=== PATIENT | male | born 1970 | race Two or more races ===

== ENCOUNTER 2018-03-20 08:35 | Inpatient (IN) | payer OTHER ==
[2018-03-20] VITALS (8 sets, daily range): BP systolic 108–137; BP diastolic 60–91
[~2018-03-20] VITALS: Ht 172.7 cm; Wt 79.4 kg
[2018-03-20] MEDS ORDERED: Vancomycin 1 GM in NS 275 ML IV ONE (08:45)
[2018-03-20] MEDS ORDERED: Amikacin 500 MG in NS 110 ML IV ONE (08:45)
[2018-03-20 09:29] LABS: BASOPHILS % (AUTO) 0.7 % (0.0-2.0); EOSINOPHILS % (AUTO) 1.3 % (0.0-3.0); HEMATOCRIT 31.1 % (42.0-52.0); HEMOGLOBIN 10.4 G/DL (14.2-18.0); LYMPHOCYTES % (AUTO) 26.3 % (20.0-45.0); MEAN CORPUSCULAR VOLUME 87 FL (80-99); MONOCYTES % (AUTO) 10.2 % (1.0-10.0); NEUTROPHILS % (AUTO) 61.5 % (45.0-75.0); PLATELET COUNT 667 K/UL (150-450); RED BLOOD COUNT 3.57 M/UL (4.70-6.10); RED CELL DISTRIBUTION WIDTH 13.7 % (11.6-14.8); WHITE BLOOD COUNT 9.5 K/UL (4.8-10.8)
[2018-03-20 09:32] LABS: ANION GAP 12 mmol/L (5-15); BLOOD UREA NITROGEN 10 mg/dL (7-18); CALCIUM 9.2 MG/DL (8.5-10.1); CARBON DIOXIDE 24 MMOL/L (21-32); CHLORIDE 90 MMOL/L (98-107); CREATININE 0.6 MG/DL (0.55-1.30); POTASSIUM 3.4 MMOL/L (3.5-5.1); SODIUM 126 MMOL/L (136-145)
[2018-03-20 09:44] LABS: COLOR,URINE YELLOW
[2018-03-20] MEDS ORDERED: INDERAL20 MG GT (09:44)
[2018-03-20] MEDS ORDERED: VALPROIC ACID250 MG GT (09:44)
[2018-03-20] MEDS ORDERED: BACLOFEN10 MG GT (09:44)
[2018-03-20] MEDS ORDERED: PEPCID AC20 M2 GT (09:44)
[2018-03-20] MEDS ORDERED: KEPPRA1000 MG GT (09:44)
[2018-03-20] MEDS ORDERED: PYRIDOXINE HCL50 MG GT (09:44)
[2018-03-20 09:45] LABS: APPEARANCE,URINE CLEAR; BILIRUBIN, URINE NEGATIVE (NEGATIVE); GLUCOSE, URINE (UA) NEGATIVE (NEGATIVE); KETONES,URINE NEGATIVE (NEGATIVE); PROTEIN,URINE 3+ (NEGATIVE)
[2018-03-20 09:46] LABS: ALANINE AMINOTRANSFERASE 19 U/L (12-78); ALBUMIN 2.7 G/DL (3.4-5.0); ALBUMIN/GLOBULIN RATIO 0.5 (1.0-2.7); ALKALINE PHOSPHATASE 126 U/L (46-116); ASPARTATE AMINO TRANSFERASE 21 U/L (15-37); BILIRUBIN,TOTAL 0.4 MG/DL (0.2-1.0); CKMB 1.2 NG/ML (0.0-3.6); CREATINE KINASE 56 U/L (26-308); LEUKOCYTE ESTERASE ,URINE 4+ (NEGATIVE); NITRITE,URINE NEGATIVE (NEGATIVE); UROBILINOGEN,URINE NORMAL MG/DL (0.0-1.0)
--- NOTE | 2018-03-20 09:57 | Diagnostic Imaging Report ---
Indication: Dyspnea Comparison: None A single view chest radiograph was obtained. Findings: Lungs are hypoinflated but clear. No infiltrate or pulmonary edema identified. Heart size is normal. Tracheostomy noted. A DISPATCH OFFICER shunt is noted projected over the right side of the chest and neck. There is a PICC line present with the tip projected over the SVC. The bones are osteopenic. IMPRESSION: No acute findings
--- NOTE | 2018-03-20 10:10 | Emergency Room Report ---
History of Present Illness General Chief Complaint: Fever Source: Medical Record Present Illness HPI Patient presents from nursing facility with reports of fever and tachycardia Patient himself is nonverbal Significant past medical history including intracranial trauma Tracheostomy Does not appear to be vent dependent Patient was found to be febrile History of present illness is limited as the patient himself is not able to provide history Unknown regarding vomiting or diarrhea Patient has a indwelling Hernandez catheter and is significantly contracted Allergies: Coded Allergies: No Known Allergies (Unverified , 03/20/18) Patient History Past Medical History: see triage record Pertinent Family History: none Reviewed Nursing Documentation: PMH: Agreed; PSxH: Agreed Nursing Documentation-PMH Past Medical History: No History, Except For Hx Hypertension: Yes Hx COPD: Yes - chronic respiratory failure, tracheostomy Hx Seizures: Yes Review of Systems All Other Systems: limited - Other than the ones mentioned in the history of present illness all others are reviewed however they do stay limited due to the patient's mental status Physical Exam Vital Signs Date Time Temp Pulse Resp B/P (MAP) Pulse Ox O2 Delivery O2 Flow Rate FiO2 03/20/18 08:24 100.9 128 48 135/88 95 Room Air 100.9 03/20/18 08:25 6.0 28 Sp02 EP Interpretation: reviewed, normal General Appearance: no apparent distress Head: other - Previous trauma Eyes: bilateral eye PERRL ENT: dry mucus membranes Neck: supple, other - Tracheostomy in place Respiratory: no respiratory distress, no retraction, crackles - Bilaterally Cardiovascular #1: no gallop, no murmur, tachycardia Gastrointestinal: other - Palpable mass in the lower abdominal region nontender no grimacing feeding tube in place Musculoskeletal: other - Patient significantly contracted, PICC line in the right upper extremity Neurologic: responsive - To verbal and physical stimuli Skin: other - Mild edema diffusely, poor skin turgor erythema lower back early stages of decubitus ulcer Lymphatic: no adenopathy Medical Decision Making Diagnostic Impression: Primary Impression: Sepsis Additional Impressions: Fever UTI (urinary tract infection) ER Course Multiple differentials considered Patient's fever and tachycardia is concerning for infectious pathology Pneumonia, aspiration, UTI, line sepsis CONSIDERED Patient's white blood cell count is normal lactic acid is appropriate Patient meets criteria for sepsis given the tachycardia and fever along with UTI Placed on broad-spectrum antibiotics and requires further inpatient care Labs Test 03/20/18 08:50 White Blood Count 9.5 K/UL (4.8-10.8) Red Blood Count 3.57 M/UL (4.70-6.10) Hemoglobin 10.4 G/DL (14.2-18.0) Hematocrit 31.1 % (42.0-52.0) Mean Corpuscular Volume 87 FL (80-99) Mean Corpuscular Hemoglobin 29.1 PG (27.0-31.0) Mean Corpuscular Hemoglobin Concent 33.3 G/DL (32.0-36.0) Red Cell Distribution Width 13.7 % (11.6-14.8) Platelet Count 667 K/UL (150-450) Mean Platelet Volume 6.0 FL (6.5-10.1) Neutrophils (%) (Auto) 61.5 % (45.0-75.0) Lymphocytes (%) (Auto) 26.3 % (20.0-45.0) Monocytes (%) (Auto) 10.2 % (1.0-10.0) Eosinophils (%) (Auto) 1.3 % (0.0-3.0) Basophils (%) (Auto) 0.7 % (0.0-2.0) Urine Color Yellow Urine Appearance Clear Urine pH 7.0 (4.5-8.0) Urine Specific [place] 1.005 (1.005-1.035) Urine Protein 3+ (NEGATIVE) Urine Glucose (UA) Negative (NEGATIVE) Urine Ketones Negative (NEGATIVE) Urine Blood 5+ (NEGATIVE) Urine Nitrite Negative (NEGATIVE) Urine Bilirubin Negative (NEGATIVE) Urine Urobilinogen Normal MG/DL (0.0-1.0) Urine Leukocyte Esterase 4+ (NEGATIVE) Urine RBC 15-20 /HPF (0 - 0) Urine WBC 10-15 /HPF (0 - 0) Urine Squamous Epithelial Cells Occasional /LPF Urine Calcium Oxalate Crystals Occasional /LPF (NONE) Urine Bacteria Few /HPF (NONE) Sodium Level 126 MMOL/L (136-145) Potassium Level 3.4 MMOL/L (3.5-5.1) Chloride Level 90 MMOL/L (98-107) Carbon Dioxide Level 24 MMOL/L (21-32) Anion Gap 12 mmol/L (5-15) Blood Urea Nitrogen 10 mg/dL (7-18) Creatinine 0.6 MG/DL (0.55-1.30) Estimat Glomerular Filtration Rate > 60 mL/min (>60) Glucose Level 111 MG/DL (74-106) Lactic Acid Level 1.80 mmol/L (0.4-2.0) Calcium Level 9.2 MG/DL (8.5-10.1) Total Bilirubin 0.4 MG/DL (0.2-1.0) Aspartate Amino Transf (AST/SGOT) 21 U/L (15-37) Alanine Aminotransferase (ALT/SGPT) 19 U/L (12-78) Alkaline Phosphatase 126 U/L (46-116) Total Creatine Kinase 56 U/L (26-308) Creatine Kinase MB 1.2 NG/ML (0.0-3.6) Creatine Kinase MB Relative Index 2.1 Troponin I 0.000 ng/mL (0.000-0.056) Pro-B-Type Natriuretic Peptide 247 pg/mL (0-125) Total Protein 7.8 G/DL (6.4-8.2) Albumin 2.7 G/DL (3.4-5.0) Globulin 5.1 g/dL Albumin/Globulin Ratio 0.5 (1.0-2.7) Lipase 140 U/L (73-393) Rhythm Strip Diag. Results EP Interpretation: yes Rate: 125 Rhythm: no PVC's, no ectopy, other - Sinus tach Chest X-Ray Diagnostic Results Chest X-Ray Diagnostic Results : Chest X-Ray Ordered: Yes # of Views/Limited/Complete: 1 View Indication: Chest Pain EP Interpretation: Yes Interpretation: no consolidation, no pneumothorax, other - Nonspecific atelectasis bilaterally no obvious bony abnormality Impression: No acute disease Last Vital Signs Date Time Temp Pulse Resp B/P (MAP) Pulse Ox O2 Delivery O2 Flow Rate FiO2 03/20/18 09:55 112 36 132/82 100 T-piece 6.0 03/20/18 08:36 100.9 100.9 03/20/18 08:25 28 Status: improved Disposition: ADMITTED INPATIENT Condition: Serious Referrals: NON PHYSICIAN (PCP) Samantha Foster DO Mar 20, 2018 10:10
[2018-03-20] MEDS ORDERED: Vancomycin 1gm inj IVPB ONE (10:35)
[2018-03-20] MEDS: Enoxaparin 40mg Inj SUBQ SCH (14:04)
--- NOTE | 2018-03-20 14:36 | Infectious Diseases Prog Note ---
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 , will order arterial Doppler , recommend vascular eval (6) Conjunctivitis of both eyes Assessment & Plan: will start moxifloxacin eye drops for 5 days Subjective Allergies: Coded Allergies: No Known Allergies (Unverified , 03/20/18) Objective Vital Signs Last 24 Hour Vital Signs Date Time Temp Pulse Resp B/P (MAP) Pulse Ox O2 Delivery O2 Flow Rate FiO2 03/20/18 12:40 T-piece 6.0 28 03/20/18 12:40 98 T-piece 6.0 28 03/20/18 12:00 99.3 113 31 128/82 100 T-piece 6.0 03/20/18 10:30 112 37 137/91 100 T-piece 6.0 03/20/18 09:55 112 36 132/82 100 T-piece 6.0 03/20/18 09:50 6.0 03/20/18 09:38 112 36 T-piece 6.0 03/20/18 08:36 100.9 123 34 108/71 95 Room Air 100.9 03/20/18 08:25 T-piece 6.0 28 03/20/18 08:25 98 T-piece 6.0 28 03/20/18 08:24 100.9 128 48 135/88 95 Room Air 100.9 Height (Feet): 5 Height (Inches): 8.00 Weight (Pounds): 150 Microbiology Date/Time Source Procedure Growth Status 03/20/18 09:00 Rectum Received Laboratory Tests Test 03/20/18 08:50 03/20/18 08:55 White Blood Count 9.5 K/UL (4.8-10.8) Red Blood Count 3.57 M/UL (4.70-6.10) L Hemoglobin 10.4 G/DL (14.2-18.0) L Hematocrit 31.1 % (42.0-52.0) L Mean Corpuscular Volume 87 FL (80-99) Mean Corpuscular Hemoglobin 29.1 PG (27.0-31.0) Mean Corpuscular Hemoglobin Concent 33.3 G/DL (32.0-36.0) Red Cell Distribution Width 13.7 % (11.6-14.8) Platelet Count 667 K/UL (150-450) H Mean Platelet Volume 6.0 FL (6.5-10.1) L Neutrophils (%) (Auto) 61.5 % (45.0-75.0) Lymphocytes (%) (Auto) 26.3 % (20.0-45.0) Monocytes (%) (Auto) 10.2 % (1.0-10.0) H Eosinophils (%) (Auto) 1.3 % (0.0-3.0) Basophils (%) (Auto) 0.7 % (0.0-2.0) Urine Color Yellow Urine Appearance Clear Urine pH 7.0 (4.5-8.0) Urine Specific [place] 1.005 (1.005-1.035) Urine Protein 3+ (NEGATIVE) H Urine Glucose (UA) Negative (NEGATIVE) Urine Ketones Negative (NEGATIVE) Urine Blood 5+ (NEGATIVE) H Urine Nitrite Negative (NEGATIVE) Urine Bilirubin Negative (NEGATIVE) Urine Urobilinogen Normal MG/DL (0.0-1.0) Urine Leukocyte Esterase 4+ (NEGATIVE) H Urine RBC 15-20 /HPF (0 - 0) H Urine WBC 10-15 /HPF (0 - 0) H Urine Squamous Epithelial Cells Occasional /LPF Urine Calcium Oxalate Crystals Occasional /LPF (NONE) Urine Bacteria Few /HPF (NONE) Sodium Level 126 MMOL/L (136-145) L Potassium Level 3.4 MMOL/L (3.5-5.1) L Chloride Level 90 MMOL/L (98-107) L Carbon Dioxide Level 24 MMOL/L (21-32) Anion Gap 12 mmol/L (5-15) Blood Urea Nitrogen 10 mg/dL (7-18) Creatinine 0.6 MG/DL (0.55-1.30) Estimat Glomerular Filtration Rate > 60 mL/min (>60) Glucose Level 111 MG/DL (74-106) H Lactic Acid Level 1.80 mmol/L (0.4-2.0) Calcium Level 9.2 MG/DL (8.5-10.1) Total Bilirubin 0.4 MG/DL (0.2-1.0) Aspartate Amino Transf (AST/SGOT) 21 U/L (15-37) Alanine Aminotransferase (ALT/SGPT) 19 U/L (12-78) Alkaline Phosphatase 126 U/L (46-116) H Total Creatine Kinase 56 U/L (26-308) Creatine Kinase MB 1.2 NG/ML (0.0-3.6) Creatine Kinase MB Relative Index 2.1 Troponin I 0.000 ng/mL (0.000-0.056) Pro-B-Type Natriuretic Peptide 247 pg/mL (0-125) H Total Protein 7.8 G/DL (6.4-8.2) Albumin 2.7 G/DL (3.4-5.0) L Globulin 5.1 g/dL Albumin/Globulin Ratio 0.5 (1.0-2.7) L Lipase 140 U/L (73-393) Valproic Acid (Depakene) Level < 3 MCG/ML (50-100) L Current Medications Medications (Trade) Dose Ordered Sig/Jhonny Route PRN Reason Start Time Stop Time Status Last Admin Dose Admin Baclofen (Lioresal) 5 mg BID GT 03/20/18 18:00 04/19/18 17:59 Dextrose (Dextrose 50%) 25 ml Q1H PRN IV Hypoglycemia 03/20/18 11:45 Dextrose (Dextrose 50%) 50 ml Q1H PRN IV Hypoglycemia 03/20/18 11:45 Enoxaparin Sodium (Lovenox) 40 mg DAILY SUBQ 03/20/18 12:45 04/19/18 12:44 03/20/18 14:04 Famotidine (Pepcid) 20 mg BID GT 03/20/18 18:00 04/19/18 17:59 Levetiracetam (Keppra) 1,000 mg Q12HR GT 03/20/18 21:00 04/19/18 20:59 Piperacillin Sod/ Tazobactam Sod 3.375 gm/Sodium Chloride 110 ml @ 27.5 mls/hr EVERY 8 HOURS IVPB 03/20/18 22:00 03/25/18 21:59 UNV Propranolol HCl (Inderal) 10 mg DAILY ORAL 03/21/18 09:00 04/20/18 08:59 Pyridoxine HCl (Vitamin B6) 50 mg DAILY GT 03/21/18 09:00 04/20/18 08:59 Sodium Chloride 1,000 ml @ 50 mls/hr Q20H IVLG 03/20/18 12:31 04/19/18 12:30 03/20/18 14:01 Valproic Acid (Depakene) 250 mg Q12HR ORAL 03/20/18 21:00 04/19/18 20:59 Vancomycin HCl (Vanco rx to dose) 1 ea DAILY PRN MISC Per rx protocol 03/20/18 14:15 04/19/18 14:14 Oneyda Cedeño M.D. Mar 20, 2018 14:36
[2018-03-20] MEDS ORDERED: Piperacillin/Tazobactam 3.375 GM in NS 110 ML IVPB SCH (16:00)
--- NOTE | 2018-03-20 18:15 | History and Physical Report ---
DATE OF ADMISSION: 03/20/2018 REASON FOR ADMISSION: 1. Sepsis. 2. Chronic respiratory failure. 3. Urinary tract infection. HISTORY OF PRESENT ILLNESS: The patient is a 48-year-old gentleman who presented from his assisted facility with fever and tachycardia. He is nonverbal. He is currently on high flow oxygen through his tracheostomy. He is being admitted for further evaluation and care, possible sepsis from pneumonia and/or urinary tract infection. He has a current indwelling Hernandez catheter and is severely contracted. ALLERGIES: No known drug allergies. PAST MEDICAL HISTORY: 1. Seizure disorder. 2. Chronic respiratory failure. 3. Chronically contracted. 4. Intracranial trauma. PAST SURGICAL HISTORY: Tracheostomy. FAMILY HISTORY: Noncontributory. REVIEW OF SYSTEMS: Cannot obtain as patient is nonverbal and is mechanically ventilated through his tracheostomy. LABORATORY AND DIAGNOSTIC DATA: Laboratories dated March 20, 2018, sodium 126, potassium 3.4, creatinine 0.6. Troponin 0. Lipase 140. Hemoglobin 10.4, white cell count 9.5, and platelet count 667. PHYSICAL EXAMINATION: VITAL SIGNS: Blood pressure 137/91, respiratory rate 37, pulse 112, temperature 100.9 mechanically ventilated. GENERAL: The patient is nonverbal high flow oxygen HEENT: Extraocular muscles intact. No lymphadenopathy noted. CARDIOVASCULAR: S1 and S2. Tachycardic. No rubs or gallops. PULMONARY: Upper airway rhonchi. Fair movement in all lung feldman with basilar rales. ABDOMEN: Nondistended and nontender. Good bowel sounds. EXTREMITIES: The patient is contracted with no edema. Fair pedal pulses. ASSESSMENT AND PLAN: 1. Sepsis, most likely secondary to underlying urinary tract infection. At this time, antibiotics will be managed by Dr. Stark of Infectious Disease. 2. Respiratory failure. The patient is on high flow oxygen via tracheostomy. To be managed during this hospitalization by Dr. Martinez for adequate oxygenation 3. Hypokalemia. We will replace with 40 mEq through his G-tube. 4. DVT prophylaxis with Lovenox. 5. Hyponatremia. At this time, we will discontinue free water flushes and change to normal saline. 6. Seizure disorder. We will check valproic acid level and continue Keppra and his valproate. 7. Tachycardia- on b-saad. Likley from sepsis. Cardiology to evaluate other etiologies Osvaldo Cooper MD DR: Burt JOB#: [id number] CC: ARNAV
--- NOTE | 2018-03-20 19:45 | Consultation ---
DATE OF CONSULTATION: 03/20/2018 INFECTIOUS DISEASE CONSULTATION CONSULTING PHYSICIAN: Oneyda Stark M.D. REQUESTING PHYSICIAN: Osvaldo Cooper M.D. REASON FOR CONSULTATION: Sepsis, catheter-associated urinary tract infection with fever. Recommendation for antibiotics treatment. HISTORY OF PRESENT ILLNESS: The patient is a 48-year-old male with past medical history of hypertension, chronic respiratory failure, status post tracheostomy, COPD, seizure disorder, history of craniotomy who has been contracted mainly in the lower extremity presented to [facility] emergency room with fever and tachycardia, concerning for sepsis. His urinalysis showed evidence of infection. The patient was found to be febrile in the emergency room with temperature of 100.9 degrees and pulse rate of 128, suggestive of sepsis. So, he was started on vancomycin and amikacin in the emergency room and Infectious Disease consultation was requested for antibiotics treatment and further management. As of note, the patient is nonverbal, could not provide any history himself. History was mainly obtained from the medical record and nursing staff. REVIEW OF SYSTEMS: Unable to obtain. The patient is nonverbal, cannot provide any history. PAST MEDICAL HISTORY: Significant for hypertension, COPD, chronic respiratory failure, status post tracheostomy and seizure disorder. PAST SURGICAL HISTORY: Significant for tracheostomy and craniotomy. SOCIAL HISTORY: The patient lives at convalescent home. No recent drugs, tobacco, or alcohol. ALLERGIES: He has no known drug allergy. MEDICATIONS: The patient received vancomycin and amikacin 1 dose in the emergency room. For the rest of his medications, please refer to MAR. LABORATORY AND DIAGNOSTIC DATA: Labs showed white count of 9.5, hemoglobin of 10.4 and platelet count of 667. BUN of 10 and creatinine 0.6. AST of 21 and ALT of 19. Urinalysis showed +4 leukocyte esterase and wbc's 10 to 15 with a few bacteria. Imaging, chest x-ray showed no acute finding. PHYSICAL EXAMINATION: VITAL SIGNS: Temperature 99.3 degrees, pulse 113, respirations 31, blood pressure 128/82 and saturation 100% on with oxygen flow of 6 liters. GENERAL: A middle-aged male, lying in bed, comfortable, nonverbal, does not open eyes spontaneously with no acute distress. HEENT: He has left craniectomy, old surgical scar intact. He had sticky dry secretions in both eyes concerning for conjunctivitis. Unable to assess oral mucosa. The patient does not follow command and does not open his mouth spontaneously, but he has poor dental hygiene and dry mouth secretion. NECK: Supple. No lymphadenopathy. Tracheostomy site looks intact. No drainage or pus discharge. CARDIOVASCULAR: He was tachycardic. S1 and S2 normal. No murmur or gallop. LUNGS: He had diminished breathing sounds at the bases. Normal breathing effort. No wheezing or rhonchi. ABDOMEN: Soft, nontender, nondistended. Hypoactive bowel sounds. G-tube site looks intact. No discharge or erythema. EXTREMITY: Contracted mainly the lower extremity with left foot and toes, multiple dry gangrenous change. No foul smell or drainage. Dark black eschar at the gangrenous site. Poor pulse in both lower extremities and muscle atrophy. ASSESSMENT AND RECOMMENDATION: 1. Catheter-associated urinary tract infection. We will start Zosyn empiric coverage pending urine culture. We will consider changing Hernandez catheter. Significant infection confirmed by culture. Continue Hernandez care as needed. 2. Fever due to the above. Continue wide-spectrum antibiotics and Tylenol p.r.n. 3. Sepsis with fever and tachycardia, source suspect is urine infection. We will start the patient on vancomycin and Zosyn empiric coverage pending cultures. 4. Tracheostomy care. Continue local care of the trach as needed with dressing change. 5. Dry gangrene of the left foot. We will order arterial Doppler. Recommend vascular evaluation for possible revascularization. Thank you for the consult. ID will continue to follow. Please feel free to call with any question. Oneyda Stark M.D. DR: FORREST JOB#: [id number] CC:
[2018-03-20] MEDS: Valproic Acid 250mg/5ml Liquid ORAL SCH (21:12)
[2018-03-20] MEDS: Piperacillin/Tazobactam 3.375 GM in NS 110 ML IVPB SCH (21:13)
[2018-03-20] MEDS: Vigamox Opth Soln 3ml BOTH EYES SCH (21:13)
[2018-03-20] MEDS: Vancomycin 1gm in D5W 275ml IVPB SCH (21:13)
[2018-03-21] VITALS: BP 113/60
--- NOTE | 2018-03-21 01:00 | Consultation ---
History of Present Illness General Date patient seen: Mar 20, 2018 Time patient seen: 22:54 Chief Complaint: Fever Present Illness HPI 48 year old male patient came in for sepsis and [id number]. Patient has a picc line on the right upper arm, a G tube on the left upper quadrant, and a yen catheter in place. Patient is non verbal, he has a trach in place. His legs are very contracted. Patient is sinus tach on the heart monitor 100-105, he was started on vancomycin and amikacin in the emergency room. He has a history of COPD, seizure disorder, history of craniotomy. CXR with no acute findings, labs show hypokalemia. Cardiology consulted for tachycardia Allergies: Coded Allergies: No Known Allergies (Unverified , 03/20/18) Medication History Scheduled Baclofen* (Baclofen*), 5 MG GT BID, (Reported) Famotidine (Pepcid Ac), 20 MG GT BID, (Reported) Levetiracetam (Keppra), 1,000 MG GT EVERY 12 HOURS, (Reported) Propranolol HCl (Propranolol HCl), 10 MG GT DAILY, (Reported) Pyridoxine Hcl* (Vitamin B-6*), 50 MG GT DAILY, (Reported) Valproic Acid (Valproic Acid), 250 MG GT BID, (Reported) Patient History Healthcare decision maker ANICETO ENCISO Resuscitation status Full Code Advanced Directive on File No Review of Systems Constitutional: Reports: fever, malaise Eye: Reports: no symptoms ENT: Reports: no symptoms Respiratory: Reports: no symptoms Gastrointestinal: Reports: no symptoms Genitourinary: Reports: no symptoms Musculoskeletal: Reports: no symptoms Skin: Reports: no symptoms Psychiatric: Reports: no symptoms Neurological: Reports: no symptoms Endocrine: Reports: no symptoms Hematologic/Lymphatic: Reports: no symptoms Physical Exam General Appearance: no apparent distress, alert Lines, tubes and drains: peripheral, PICC HEENT: normocephalic, atraumatic Neck: non-tender, normal alignment Respiratory/Chest: chest wall non-tender, lungs clear Cardiovascular/Chest: normal peripheral pulses, normal rate, tachycardia Abdomen: normal bowel sounds, non tender, no organomegaly Genitourinary/Rectal: normal rectal exam Extremities: normal range of motion, non-tender Skin Exam: normal pigmentation Neurologic: caul puller II-XII grossly normal Last 24 Hour Vital Signs Date Time Temp Pulse Resp B/P (MAP) Pulse Ox O2 Delivery O2 Flow Rate FiO2 03/21/18 00:25 T-piece 6.0 28 03/21/18 00:25 97 T-piece 6.0 28 03/20/18 20:00 112 03/20/18 20:00 28 03/20/18 20:00 99.9 120 20 110/70 (83) 98 99.9 03/20/18 20:00 T-piece 03/20/18 19:17 100 T-piece 6.0 28 03/20/18 19:17 T-piece 6.0 28 03/20/18 18:00 99.7 112 16 128/75 (92) 98 99.7 03/20/18 17:30 T-piece 03/20/18 17:20 6.0 03/20/18 16:59 T-piece 6.0 03/20/18 16:00 110 03/20/18 16:00 T-piece 03/20/18 16:00 99.0 106 14 122/81 (95) 98 99.0 03/20/18 14:00 106 16 114/72 (86) 98 03/20/18 12:40 T-piece 6.0 03/20/18 12:40 98 T-piece 6.0 03/20/18 12:30 99.0 106 18 111/60 (77) 98 99.0 03/20/18 12:00 99.3 113 31 128/82 100 T-piece 6.0 03/20/18 10:30 112 37 137/91 100 T-piece 6.0 03/20/18 09:55 112 36 132/82 100 T-piece 6.0 03/20/18 09:50 6.0 03/20/18 09:38 112 36 T-piece 6.0 03/20/18 08:36 100.9 123 34 108/71 95 Room Air 100.9 03/20/18 08:25 T-piece 6.0 03/20/18 08:25 98 T-piece 6.0 03/20/18 08:24 100.9 128 48 135/88 95 Room Air 100.9 Intake and Output 03/20/18 03/21/18 19:00 07:00 Intake Total 90 ml Output Total 1150 ml Balance -1060 ml Intake Free Water 50 ml Tube Feeding 40 ml Output Urine Total 1150 ml # Bowel Movements 3 Laboratory Tests Test 03/20/18 08:50 03/20/18 08:55 White Blood Count 9.5 K/UL (4.8-10.8) Red Blood Count 3.57 M/UL (4.70-6.10) L Hemoglobin 10.4 G/DL (14.2-18.0) L Hematocrit 31.1 % (42.0-52.0) L Mean Corpuscular Volume 87 FL (80-99) Mean Corpuscular Hemoglobin 29.1 PG (27.0-31.0) Mean Corpuscular Hemoglobin Concent 33.3 G/DL (32.0-36.0) Red Cell Distribution Width 13.7 % (11.6-14.8) Platelet Count 667 K/UL (150-450) H Mean Platelet Volume 6.0 FL (6.5-10.1) L Neutrophils (%) (Auto) 61.5 % (45.0-75.0) Lymphocytes (%) (Auto) 26.3 % (20.0-45.0) Monocytes (%) (Auto) 10.2 % (1.0-10.0) H Eosinophils (%) (Auto) 1.3 % (0.0-3.0) Basophils (%) (Auto) 0.7 % (0.0-2.0) Urine Color Yellow Urine Appearance Clear Urine pH 7.0 (4.5-8.0) Urine Specific [place] 1.005 (1.005-1.035) Urine Protein 3+ (NEGATIVE) H Urine Glucose (UA) Negative (NEGATIVE) Urine Ketones Negative (NEGATIVE) Urine Blood 5+ (NEGATIVE) H Urine Nitrite Negative (NEGATIVE) Urine Bilirubin Negative (NEGATIVE) Urine Urobilinogen Normal MG/DL (0.0-1.0) Urine Leukocyte Esterase 4+ (NEGATIVE) H Urine RBC 15-20 /HPF (0 - 0) H Urine WBC 10-15 /HPF (0 - 0) H Urine Squamous Epithelial Cells Occasional /LPF Urine Calcium Oxalate Crystals Occasional /LPF (NONE) Urine Bacteria Few /HPF (NONE) Sodium Level 126 MMOL/L (136-145) L Potassium Level 3.4 MMOL/L (3.5-5.1) L Chloride Level 90 MMOL/L (98-107) L Carbon Dioxide Level 24 MMOL/L (21-32) Anion Gap 12 mmol/L (5-15) Blood Urea Nitrogen 10 mg/dL (7-18) Creatinine 0.6 MG/DL (0.55-1.30) Estimat Glomerular Filtration Rate > 60 mL/min (>60) Glucose Level 111 MG/DL (74-106) H Lactic Acid Level 1.80 mmol/L (0.4-2.0) Calcium Level 9.2 MG/DL (8.5-10.1) Total Bilirubin 0.4 MG/DL (0.2-1.0) Aspartate Amino Transf (AST/SGOT) 21 U/L (15-37) Alanine Aminotransferase (ALT/SGPT) 19 U/L (12-78) Alkaline Phosphatase 126 U/L (46-116) H Total Creatine Kinase 56 U/L (26-308) Creatine Kinase MB 1.2 NG/ML (0.0-3.6) Creatine Kinase MB Relative Index 2.1 Troponin I 0.000 ng/mL (0.000-0.056) Pro-B-Type Natriuretic Peptide 247 pg/mL (0-125) H Total Protein 7.8 G/DL (6.4-8.2) Albumin 2.7 G/DL (3.4-5.0) L Globulin 5.1 g/dL Albumin/Globulin Ratio 0.5 (1.0-2.7) L Lipase 140 U/L (73-393) Valproic Acid (Depakene) Level < 3 MCG/ML (50-100) L Microbiology Date/Time Source Procedure Growth Status 03/20/18 09:00 Rectum Received Height (Feet): 5 Height (Inches): 8.00 Weight (Pounds): 175 Medications Current Medications Medications (Trade) Dose Ordered Sig/Jhonny Route PRN Reason Start Time Stop Time Status Last Admin Dose Admin Acetaminophen (Tylenol) 650 mg Q6H PRN ORAL Mild Pain/Temp > 100.5 03/20/18 22:15 04/19/18 22:14 Baclofen (Lioresal) 5 mg BID GT 03/20/18 21:00 04/19/18 20:59 03/20/18 21:12 Chlorhexidine Gluconate (Jackeline-Hex 2%) 1 applic DAILY@2000 TOPIC 03/21/18 20:00 04/20/18 19:59 Dextrose (Dextrose 50%) 25 ml Q1H PRN IV Hypoglycemia 03/20/18 11:45 Dextrose (Dextrose 50%) 50 ml Q1H PRN IV Hypoglycemia 03/20/18 11:45 Enoxaparin Sodium (Lovenox) 40 mg DAILY SUBQ 03/20/18 12:45 04/19/18 12:44 03/20/18 14:04 Famotidine (Pepcid) 20 mg BID GT 03/20/18 21:00 04/19/18 20:59 03/20/18 21:12 Levetiracetam (Keppra) 1,000 mg Q12HR GT 03/20/18 21:00 04/19/18 20:59 03/20/18 21:13 Moxifloxacin HCl (Vigamox) 1 drop Q8HR BOTH EYES 03/20/18 22:00 03/25/18 21:59 03/20/18 21:13 Piperacillin Sod/ Tazobactam Sod 3.375 gm/Sodium Chloride 110 ml @ 220 mls/hr Q8H IVPB 03/20/18 21:00 03/27/18 20:59 03/20/18 21:13 Propranolol HCl (Inderal) 10 mg DAILY ORAL 03/21/18 09:00 04/20/18 08:59 Pyridoxine HCl (Vitamin B6) 50 mg DAILY GT 03/21/18 09:00 04/20/18 08:59 Sodium Chloride 1,000 ml @ 50 mls/hr Q20H IVLG 03/20/18 12:31 04/19/18 12:30 03/20/18 14:01 Valproic Acid (Depakene) 250 mg Q12HR ORAL 03/20/18 21:00 04/19/18 20:59 03/20/18 21:12 Vancomycin HCl (Vanco rx to dose) 1 ea DAILY PRN MISC Per rx protocol 03/20/18 15:00 04/19/18 14:59 Vancomycin HCl 1 gm/Dextrose 275 ml @ 183.708 mls/hr Q12HR IVPB 03/20/18 21:00 03/25/18 20:59 03/20/18 21:13 Assessment/Plan Status: stable Assessment/Plan Assessment: 1) Sepsis- UTI 2) Tachycardia 3) COPD 4) Hypokalemia 5) Hyponatremia 6) Fever 7) Conjunctivitis 8) Trach/peg Plan: IV abx for UTI Replete electrolytes IV fluid bolus, patient clinically dry Tachycardia noted - hold beta blockers in setting of sepsis, will resolve once infection and fluid status improved Echocardiogram to evaluate IVC size and LV filling parameters Wound care Mohsen Hinojosa MD Mar 21, 2018 01:00
[2018-03-21 04:00] VITALS: BP 114/74
[2018-03-21] MEDS: Piperacillin/Tazobactam 3.375 GM in NS 110 ML IVPB SCH ×3 (05:11→21:51)
[2018-03-21] MEDS: Vigamox Opth Soln 3ml BOTH EYES SCH ×3 (05:11→21:51)
[2018-03-21 05:36] LABS: BASOPHILS % (AUTO) 0.8 % (0.0-2.0); EOSINOPHILS % (AUTO) 1.2 % (0.0-3.0); HEMATOCRIT 30.7 % (42.0-52.0); HEMOGLOBIN 9.9 G/DL (14.2-18.0); LYMPHOCYTES % (AUTO) 42.7 % (20.0-45.0); MEAN CORPUSCULAR VOLUME 88 FL (80-99); MONOCYTES % (AUTO) 14.8 % (1.0-10.0); NEUTROPHILS % (AUTO) 40.5 % (45.0-75.0); PLATELET COUNT 476 K/UL (150-450); RED BLOOD COUNT 3.47 M/UL (4.70-6.10); RED CELL DISTRIBUTION WIDTH 13.8 % (11.6-14.8); WHITE BLOOD COUNT 5.4 K/UL (4.8-10.8)
[2018-03-21 05:43] LABS: ANION GAP 9 mmol/L (5-15); BLOOD UREA NITROGEN 5 mg/dL (7-18); CALCIUM 9.2 MG/DL (8.5-10.1); CARBON DIOXIDE 28 MMOL/L (21-32); CHLORIDE 102 MMOL/L (98-107); CREATININE 0.5 MG/DL (0.55-1.30); POTASSIUM 3.1 MMOL/L (3.5-5.1); SODIUM 138 MMOL/L (136-145)
--- NOTE | 2018-03-21 07:55 | Nephrology Progress Note ---
Assessment/Plan Assessment/Plan A/P 1) Sepsis- UTI, catheter related - Abx mgmt per ID 2) Tachycardia- from fever/sepsis - BBlocker and cardiology evaluated 3) Resp Fl- trach on T-Piece 4) DVT prophylaxsis- lovenox sub q 5) Dry Gangrene left foot- Surgery has been consulted and doppler ordered 6) Hyponatremia- corrected Subjective Date patient seen: Mar 21, 2018 Time patient seen: 07:48 ROS Limited/Unobtainable: Yes Allergies: Coded Allergies: No Known Allergies (Unverified , 03/20/18) All Systems: reviewed and negative except above Subjective Patient stable in no overt distress Objective Last 24 Hour Vital Signs Date Time Temp Pulse Resp B/P (MAP) Pulse Ox O2 Delivery O2 Flow Rate FiO2 03/21/18 04:00 98.1 113 18 114/74 (87) 100 98.1 03/21/18 04:00 T-piece 03/21/18 04:00 28 03/21/18 04:00 113 03/21/18 00:25 T-piece 6.0 28 03/21/18 00:25 97 T-piece 6.0 03/21/18 00:00 T-piece 03/21/18 00:00 99.3 119 26 113/60 (77) 98 99.3 03/20/18 20:00 112 03/20/18 20:00 28 03/20/18 20:00 99.9 120 20 110/70 (83) 98 99.9 03/20/18 20:00 T-piece 03/20/18 19:17 100 T-piece 6.0 03/20/18 19:17 T-piece 6.0 28 03/20/18 18:00 99.7 112 16 128/75 (92) 98 99.7 03/20/18 17:30 T-piece 03/20/18 17:20 6.0 03/20/18 16:59 T-piece 6.0 03/20/18 16:00 110 03/20/18 16:00 T-piece 03/20/18 16:00 99.0 106 14 122/81 (95) 98 99.0 03/20/18 14:00 106 16 114/72 (86) 98 03/20/18 12:40 T-piece 6.0 28 03/20/18 12:40 98 T-piece 6.0 03/20/18 12:30 99.0 106 18 111/60 (77) 98 99.0 03/20/18 12:00 99.3 113 31 128/82 100 T-piece 6.0 03/20/18 10:30 112 37 137/91 100 T-piece 6.0 03/20/18 09:55 112 36 132/82 100 T-piece 6.0 03/20/18 09:50 6.0 03/20/18 09:38 112 36 T-piece 6.0 03/20/18 08:36 100.9 123 34 108/71 95 Room Air 100.9 03/20/18 08:25 T-piece 6.0 03/20/18 08:25 98 T-piece 6.0 03/20/18 08:24 100.9 128 48 135/88 95 Room Air 100.9 Intake and Output 03/20/18 03/21/18 19:00 07:00 Intake Total 90 ml 1655.000 ml Output Total 1150 ml 1150 ml Balance -1060 ml 505.000 ml Intake Free Water 50 ml IV Total 1095.000 ml Tube Feeding 40 ml 440 ml Other 120 ml Output Urine Total 1150 ml 1150 ml # Bowel Movements 3 2 Laboratory Tests 03/20/18 08:50: White Blood Count 9.5, Red Blood Count 3.57L, Hemoglobin 10.4L, Hematocrit 31.1L , Mean Corpuscular Volume 87, Mean Corpuscular Hemoglobin 29.1, Mean Corpuscular Hemoglobin Concent 33.3, Red Cell Distribution Width 13.7, Platelet Count 667H, Mean Platelet Volume 6.0L, Neutrophils (%) (Auto) 61.5, Lymphocytes (%) (Auto) 26.3, Monocytes (%) (Auto) 10.2H, Eosinophils (%) (Auto) 1.3, Basophils (%) (Auto) 0.7, Urine Color Yellow, Urine Appearance Clear, Urine pH 7.0, Urine Specific [place] 1.005, Urine Protein 3+H, Urine Glucose (UA) Negative, Urine Ketones Negative, Urine Blood 5+H, Urine Nitrite Negative, Urine Bilirubin Negative, Urine Urobilinogen Normal, Urine Leukocyte Esterase 4+ H, Urine RBC 15-20H, Urine WBC 10-15H, Urine Squamous Epithelial Cells Occasional, Urine Calcium Oxalate Crystals Occasional, Urine Bacteria Few, Sodium Level 126L, Potassium Level 3.4L, Chloride Level 90L, Carbon Dioxide Level 24, Anion Gap 12, Blood Urea Nitrogen 10, Creatinine 0.6, Estimat Glomerular Filtration Rate > 60, Glucose Level 111H, Lactic Acid Level 1.80, Calcium Level 9.2, Total Bilirubin 0.4, Aspartate Amino Transf (AST/SGOT) 21, Alanine Aminotransferase (ALT/SGPT) 19, Alkaline Phosphatase 126H, Total Creatine Kinase 56, Creatine Kinase MB 1.2, Creatine Kinase MB Relative Index 2.1, Troponin I 0.000, Pro-B-Type Natriuretic Peptide 247H, Total Protein 7.8, Albumin 2.7L, Globulin 5.1, Albumin/Globulin Ratio 0.5L, Lipase 140 03/20/18 08:55: Valproic Acid (Depakene) Level < 3L 03/21/18 03:45: White Blood Count 5.4, Red Blood Count 3.47L, Hemoglobin 9.9L, Hematocrit 30.7L , Mean Corpuscular Volume 88, Mean Corpuscular Hemoglobin 28.6, Mean Corpuscular Hemoglobin Concent 32.3, Red Cell Distribution Width 13.8, Platelet Count 476H, Mean Platelet Volume 5.9L, Neutrophils (%) (Auto) 40.5L, Lymphocytes (%) (Auto) 42.7, Monocytes (%) (Auto) 14.8H, Eosinophils (%) (Auto) 1.2, Basophils (%) (Auto) 0.8, Sodium Level 138#, Potassium Level 3.1L, Chloride Level 102, Carbon Dioxide Level 28, Anion Gap 9, Blood Urea Nitrogen 5L , Creatinine 0.5L, Estimat Glomerular Filtration Rate > 60, Glucose Level 94, Calcium Level 9.2 Height (Feet): 5 Height (Inches): 8.00 Weight (Pounds): 175 General Appearance: no apparent distress EENT: normal ENT inspection Neck: normal alignment, supple Cardiovascular: tachycardia Respiratory/Chest: rhonchi - bilaterally Abdomen: non tender, soft Edema: no edema noted Arm (L), no edema noted Arm (R), no edema noted Leg (L), no edema noted Leg (R), no edema noted Pedal (L), no edema noted Pedal (R), no edema noted Generalized Osvaldo Cooper MD Mar 21, 2018 07:55
[2018-03-21 08:00] VITALS: BP 116/71
--- NOTE | 2018-03-21 10:04 | Pulmonology Progress Note ---
Assessment/Plan Problems: (1) UTI (urinary tract infection) (2) Fever (3) Sepsis (4) Tracheostomy care Assessment/Plan care noted respiratory care suction oxygen aspiration precautions impression, plan, and exam edited and reviewed in detail care discussed with RN Subjective ROS Limited/Unobtainable: Yes Allergies: Coded Allergies: No Known Allergies (Unverified , 03/20/18) Subjective care discussed on trach collar Objective Last 24 Hour Vital Signs Date Time Temp Pulse Resp B/P (MAP) Pulse Ox O2 Delivery O2 Flow Rate FiO2 03/21/18 07:59 98 T-piece 6.0 28 03/21/18 06:45 T-piece 6.0 28 03/21/18 04:00 98.1 113 18 114/74 (87) 100 98.1 03/21/18 04:00 T-piece 03/21/18 04:00 28 03/21/18 04:00 113 03/21/18 00:25 T-piece 6.0 28 03/21/18 00:25 97 T-piece 6.0 03/21/18 00:00 T-piece 03/21/18 00:00 99.3 119 26 113/60 (77) 98 99.3 03/20/18 20:00 112 03/20/18 20:00 28 03/20/18 20:00 99.9 120 20 110/70 (83) 98 99.9 03/20/18 20:00 T-piece 03/20/18 19:17 100 T-piece 6.0 03/20/18 19:17 T-piece 6.0 03/20/18 18:00 99.7 112 16 128/75 (92) 98 99.7 03/20/18 17:30 T-piece 03/20/18 17:20 6.0 03/20/18 16:59 T-piece 6.0 03/20/18 16:00 110 03/20/18 16:00 T-piece 03/20/18 16:00 99.0 106 14 122/81 (95) 98 99.0 03/20/18 14:00 106 16 114/72 (86) 98 03/20/18 12:40 T-piece 6.0 28 03/20/18 12:40 98 T-piece 6.0 28 9/21/18 12:30 99.0 106 18 111/60 (77) 98 99.0 03/20/18 12:00 99.3 113 31 128/82 100 T-piece 6.0 03/20/18 10:30 112 37 137/91 100 T-piece 6.0 Intake and Output 03/20/18 03/21/18 19:00 07:00 Intake Total 90 ml 1655.000 ml Output Total 1150 ml 1150 ml Balance -1060 ml 505.000 ml Intake Free Water 50 ml IV Total 1095.000 ml Tube Feeding 40 ml 440 ml Other 120 ml Output Urine Total 1150 ml 1150 ml # Bowel Movements 3 2 Objective WDWN trach reduced breath sounds bilaterally without rhonchi or wheeze [id number] without MRG NABS nontender no HSM no CCE poor LOC Microbiology Date/Time Source Procedure Growth Status 03/20/18 09:00 Rectum Received Laboratory Tests 03/21/18 03:45: White Blood Count 5.4, Red Blood Count 3.47L, Hemoglobin 9.9L, Hematocrit 30.7L , Mean Corpuscular Volume 88, Mean Corpuscular Hemoglobin 28.6, Mean Corpuscular Hemoglobin Concent 32.3, Red Cell Distribution Width 13.8, Platelet Count 476H, Mean Platelet Volume 5.9L, Neutrophils (%) (Auto) 40.5L, Lymphocytes (%) (Auto) 42.7, Monocytes (%) (Auto) 14.8H, Eosinophils (%) (Auto) 1.2, Basophils (%) (Auto) 0.8, Sodium Level 138#, Potassium Level 3.1L, Chloride Level 102, Carbon Dioxide Level 28, Anion Gap 9, Blood Urea Nitrogen 5L , Creatinine 0.5L, Estimat Glomerular Filtration Rate > 60, Glucose Level 94, Calcium Level 9.2 Current Medications Medications (Trade) Dose Ordered Sig/Jhonny Route PRN Reason Start Time Stop Time Status Last Admin Dose Admin Acetaminophen (Tylenol) 650 mg Q6H PRN ORAL Mild Pain/Temp > 100.5 03/20/18 22:15 04/19/18 22:14 03/21/18 01:08 Baclofen (Lioresal) 5 mg BID GT 03/20/18 21:00 04/19/18 20:59 03/20/18 21:12 Chlorhexidine Gluconate (Jackeline-Hex 2%) 1 applic DAILY@2000 TOPIC 03/21/18 20:00 04/20/18 19:59 Dextrose (Dextrose 50%) 25 ml Q1H PRN IV Hypoglycemia 03/20/18 11:45 Dextrose (Dextrose 50%) 50 ml Q1H PRN IV Hypoglycemia 03/20/18 11:45 Enoxaparin Sodium (Lovenox) 40 mg DAILY SUBQ 03/20/18 12:45 04/19/18 12:44 03/20/18 14:04 Famotidine (Pepcid) 20 mg BID GT 03/20/18 21:00 04/19/18 20:59 03/20/18 21:12 Levetiracetam (Keppra) 1,000 mg Q12HR GT 03/20/18 21:00 04/19/18 20:59 03/20/18 21:13 Moxifloxacin HCl (Vigamox) 1 drop Q8HR BOTH EYES 03/20/18 22:00 03/25/18 21:59 03/21/18 05:11 Piperacillin Sod/ Tazobactam Sod 3.375 gm/Sodium Chloride 110 ml @ 220 mls/hr Q8H IVPB 03/20/18 21:00 03/27/18 20:59 03/21/18 05:11 Potassium Chloride 100 ml @ 50 mls/hr Q2H IVPB 03/21/18 08:30 03/21/18 10:29 Propranolol HCl (Inderal) 10 mg DAILY ORAL 03/21/18 09:00 04/20/18 08:59 Pyridoxine HCl (Vitamin B6) 50 mg DAILY GT 03/21/18 09:00 04/20/18 08:59 Sodium Chloride 1,000 ml @ 50 mls/hr Q20H IVLG 03/20/18 12:31 04/19/18 12:30 03/20/18 14:01 Valproic Acid (Depakene) 250 mg Q12HR ORAL 03/20/18 21:00 04/19/18 20:59 03/20/18 21:12 Vancomycin HCl (Vanco rx to dose) 1 ea DAILY PRN MISC Per rx protocol 03/20/18 15:00 04/19/18 14:59 Vancomycin HCl 1 gm/Dextrose 275 ml @ 183.708 mls/hr Q12HR IVPB 03/20/18 21:00 03/25/18 20:59 03/20/18 21:13 Livan Martinez MD Mar 21, 2018 10:04
[2018-03-21] MEDS: Pyridoxine 50mg tab GT SCH (10:44)
[2018-03-21] MEDS: Propranolol 10mg tab ORAL SCH (10:45)
[2018-03-21] MEDS: Vancomycin 1gm in D5W 275ml IVPB SCH ×2 (10:45→21:51)
[2018-03-21] MEDS: Valproic Acid 250mg/5ml Liquid ORAL SCH ×2 (10:45→21:51)
[2018-03-21] MEDS: Enoxaparin 40mg Inj SUBQ SCH (10:47)
--- NOTE | 2018-03-21 11:32 | Consultation ---
History of Present Illness General Date patient seen: Mar 21, 2018 Chief Complaint: Fever Reason for Consultation: lower extremity gangrene Present Illness HPI 48 year old male with multiple chronic medical comorbidities who is a snf dependant and has chronic extremity contractures presented with fever, tachycardia, sepsis. Upon admission noted to have UTI, abnormal labs, stable cxr. On exam was seen to have multiple areas of gangrene to lower extremities/ feet. Surgery called to evaluate as possible etiology of sepsis and assist with management. patient seen, chart reviewed, patient examined. patient unable to cooperate with exam given medical condition. Allergies: Coded Allergies: No Known Allergies (Unverified , 03/20/18) Medication History Scheduled Baclofen* (Baclofen*), 5 MG GT BID, (Reported) Famotidine (Pepcid Ac), 20 MG GT BID, (Reported) Levetiracetam (Keppra), 1,000 MG GT EVERY 12 HOURS, (Reported) Propranolol HCl (Propranolol HCl), 10 MG GT DAILY, (Reported) Pyridoxine Hcl* (Vitamin B-6*), 50 MG GT DAILY, (Reported) Valproic Acid (Valproic Acid), 250 MG GT BID, (Reported) Patient History Limited by: medical condition History Provided By: Medical Record, PMD Healthcare decision maker ANICETO ENCISO Resuscitation status Full Code Advanced Directive on File No Past Medical/Surgical History Past Medical/Surgical History: (1) Fever (2) Sepsis (3) Catheter-associated urinary tract infection (4) Tracheostomy care (5) Dry gangrene (6) Conjunctivitis of both eyes (7) UTI (urinary tract infection) Review of Systems ROS Narrative cannot participate given medical condition Physical Exam General Appearance: no apparent distress Lines, tubes and drains: other HEENT: other Neck: other Respiratory/Chest: other Cardiovascular/Chest: tachycardia Abdomen: soft, no organomegaly, no mass Extremities: other - see A/P Skin Exam: cyanotic Neurologic: unresponsiveness Last 24 Hour Vital Signs Date Time Temp Pulse Resp B/P (MAP) Pulse Ox O2 Delivery O2 Flow Rate FiO2 03/21/18 10:45 115 119/82 03/21/18 08:00 T-piece 03/21/18 08:00 122 03/21/18 07:59 98 T-piece 6.0 28 03/21/18 06:45 T-piece 6.0 28 22/18 04:00 98.1 113 18 114/74 (87) 100 98.1 03/21/18 04:00 T-piece 03/21/18 04:00 28 03/21/18 04:00 113 03/21/18 00:25 T-piece 6.0 03/21/18 00:25 97 T-piece 6.0 03/21/18 00:00 T-piece 03/21/18 00:00 99.3 119 26 113/60 (77) 98 99.3 03/20/18 20:00 112 03/20/18 20:00 28 03/20/18 20:00 99.9 120 20 110/70 (83) 98 99.9 03/20/18 20:00 T-piece 03/20/18 19:17 100 T-piece 6.0 03/20/18 19:17 T-piece 6.0 03/20/18 18:00 99.7 112 16 128/75 (92) 98 99.7 03/20/18 17:30 T-piece 03/20/18 17:20 6.0 03/20/18 16:59 T-piece 6.0 03/20/18 16:00 110 03/20/18 16:00 T-piece 03/20/18 16:00 99.0 106 14 122/81 (95) 98 99.0 03/20/18 14:00 106 16 114/72 (86) 98 03/20/18 12:40 T-piece 6.0 03/20/18 12:40 98 T-piece 6.0 03/20/18 12:30 99.0 106 18 111/60 (77) 98 99.0 03/20/18 12:00 99.3 113 31 128/82 100 T-piece 6.0 Intake and Output 03/20/18 03/21/18 19:00 07:00 Intake Total 90 ml 1655.000 ml Output Total 1150 ml 1150 ml Balance -1060 ml 505.000 ml Intake Free Water 50 ml IV Total 1095.000 ml Tube Feeding 40 ml 440 ml Other 120 ml Output Urine Total 1150 ml 1150 ml # Bowel Movements 3 2 Laboratory Tests Test 03/21/18 03:45 White Blood Count 5.4 K/UL (4.8-10.8) Red Blood Count 3.47 M/UL (4.70-6.10) L Hemoglobin 9.9 G/DL (14.2-18.0) L Hematocrit 30.7 % (42.0-52.0) L Mean Corpuscular Volume 88 FL (80-99) Mean Corpuscular Hemoglobin 28.6 PG (27.0-31.0) Mean Corpuscular Hemoglobin Concent 32.3 G/DL (32.0-36.0) Red Cell Distribution Width 13.8 % (11.6-14.8) Platelet Count 476 K/UL (150-450) H Mean Platelet Volume 5.9 FL (6.5-10.1) L Neutrophils (%) (Auto) 40.5 % (45.0-75.0) L Lymphocytes (%) (Auto) 42.7 % (20.0-45.0) Monocytes (%) (Auto) 14.8 % (1.0-10.0) H Eosinophils (%) (Auto) 1.2 % (0.0-3.0) Basophils (%) (Auto) 0.8 % (0.0-2.0) Sodium Level 138 MMOL/L (136-145) # Potassium Level 3.1 MMOL/L (3.5-5.1) L Chloride Level 102 MMOL/L (98-107) Carbon Dioxide Level 28 MMOL/L (21-32) Anion Gap 9 mmol/L (5-15) Blood Urea Nitrogen 5 mg/dL (7-18) L Creatinine 0.5 MG/DL (0.55-1.30) L Estimat Glomerular Filtration Rate > 60 mL/min (>60) Glucose Level 94 MG/DL (74-106) Calcium Level 9.2 MG/DL (8.5-10.1) Height (Feet): 5 Height (Inches): 8.00 Weight (Pounds): 175 Medications Current Medications Medications (Trade) Dose Ordered Sig/Jhonny Route PRN Reason Start Time Stop Time Status Last Admin Dose Admin Acetaminophen (Tylenol) 650 mg Q6H PRN ORAL Mild Pain/Temp > 100.5 03/20/18 22:15 04/19/18 22:14 03/21/18 01:08 Baclofen (Lioresal) 5 mg BID GT 9/21/18 21:00 04/19/18 20:59 03/21/18 10:44 Chlorhexidine Gluconate (Jackeline-Hex 2%) 1 applic DAILY@2000 TOPIC 03/21/18 20:00 04/20/18 19:59 Dextrose (Dextrose 50%) 25 ml Q1H PRN IV Hypoglycemia 03/20/18 11:45 Dextrose (Dextrose 50%) 50 ml Q1H PRN IV Hypoglycemia 03/20/18 11:45 Enoxaparin Sodium (Lovenox) 40 mg DAILY SUBQ 03/20/18 12:45 04/19/18 12:44 03/21/18 10:47 Famotidine (Pepcid) 20 mg BID GT 03/20/18 21:00 04/19/18 20:59 03/21/18 10:44 Levetiracetam (Keppra) 1,000 mg Q12HR GT 03/20/18 21:00 04/19/18 20:59 03/21/18 10:44 Moxifloxacin HCl (Vigamox) 1 drop Q8HR BOTH EYES 03/20/18 22:00 03/25/18 21:59 03/21/18 05:11 Piperacillin Sod/ Tazobactam Sod 3.375 gm/Sodium Chloride 110 ml @ 220 mls/hr Q8H IVPB 03/20/18 21:00 03/27/18 20:59 03/21/18 05:11 Propranolol HCl (Inderal) 10 mg DAILY ORAL 03/21/18 09:00 04/20/18 08:59 03/21/18 10:45 Pyridoxine HCl (Vitamin B6) 50 mg DAILY GT 03/21/18 09:00 04/20/18 08:59 03/21/18 10:44 Sodium Chloride 1,000 ml @ 50 mls/hr Q20H IVLG 03/20/18 12:31 04/19/18 12:30 03/21/18 08:31 Valproic Acid (Depakene) 250 mg Q12HR ORAL 03/20/18 21:00 04/19/18 20:59 03/21/18 10:45 Vancomycin HCl (Vanco rx to dose) 1 ea DAILY PRN MISC Per rx protocol 03/20/18 15:00 04/19/18 14:59 Vancomycin HCl 1 gm/Dextrose 275 ml @ 183.708 mls/hr Q12HR IVPB 03/20/18 21:00 03/25/18 20:59 03/21/18 10:45 Assessment/Plan Problem List: (1) Dry gangrene Assessment & Plan: Stable dry eschar on plantar aspect of Left 1st metatarsal / Great toe (L)2.2cm x (W)1.7cm... Periwound without erythema or induration. no drainage. no odor Stable dry eschar on plantar Left foot (L)1.4cm x (W)1.3cm... Periwound without induration or erythema. no drainage or order Left lateral and plantar aspect including Left 5th metatarsal there is a reabsorbing Blood Blister noted which presents with dry eschar and has fluctuant centrally (L)5.3cm x (W)3.5cm. Borders are adherent and dry without erythema or induration periwound. Both heels are soft dry and blanchable. right heel with <2cm area of soft eschar without drainage Non-Blanchable erythema buttocks Capillary refill okay. Poor pulses faint PT/DP. no venous congestion noted All wounds present on admission and will be cared for during hospital stay. Plan: Please place on Surface support mattress. Reposition at least every 2hours or as tolerated. Off-load heel with pillow Swab Wounds Plantar L foot with Benzoin Tincture .Cover with ABD and wrap with Soft Juan Ramon Daily and prn. Protective sacral foam drsg. Change weekly and prn Pending Arterial duplex studies Currently stable. Based on duplex studies will discuss with vascular surgery if appropriate for revascularization ICD Codes: I96 - Gangrene, not elsewhere classified SNOMED: 84857704, [id number] (2) Sepsis ICD Codes: A41.9 - Sepsis, unspecified organism SNOMED: [id number] Panda Nur Mar 21, 2018 11:32
[2018-03-21 12:00] VITALS: BP 120/81
[2018-03-21] MEDS ORDERED: NS Irrig 1000ml ONE (13:04)
--- NOTE | 2018-03-21 13:04 | Cardiology Progress Note ---
Assessment/Plan Status: progressing Assessment/Plan Assessment: 1) Sepsis- UTI 2) Tachycardia 3) COPD 4) Hypokalemia 5) Hyponatremia 6) Fever 7) Conjunctivitis 8) Trach/peg Plan: IV abx for UTI Replete electrolytes IV fluid bolus, patient clinically dry Tachycardia noted - hold beta blockers in setting of sepsis, will resolve once infection and fluid status improved Echocardiogram to evaluate IVC size and LV filling parameters Wound care Subjective Cardiovascular: Reports: no symptoms Respiratory: Reports: no symptoms Gastrointestinal/Abdominal: Reports: no symptoms Genitourinary: Reports: no symptoms Subjective No acute events, on IV abx, low potassium, remains tachycardia 115, BP stable Objective Last 24 Hour Vital Signs Date Time Temp Pulse Resp B/P (MAP) Pulse Ox O2 Delivery O2 Flow Rate FiO2 03/21/18 10:45 115 119/82 03/21/18 08:00 T-piece 03/21/18 08:00 28 03/21/18 08:00 122 03/21/18 08:00 97.9 115 18 116/71 (86) 99 97.9 03/21/18 08:00 28 03/21/18 07:59 98 T-piece 6.0 03/21/18 06:45 T-piece 6.0 03/21/18 04:00 98.1 113 18 114/74 (87) 100 98.1 03/21/18 04:00 T-piece 03/21/18 04:00 28 03/21/18 04:00 113 03/21/18 00:25 T-piece 6.0 03/21/18 00:25 97 T-piece 6.0 03/21/18 00:00 T-piece 03/21/18 00:00 99.3 119 26 113/60 (77) 98 99.3 03/20/18 20:00 112 03/20/18 20:00 28 03/20/18 20:00 99.9 120 20 110/70 (83) 98 99.9 03/20/18 20:00 T-piece 03/20/18 19:17 100 T-piece 6.0 28 03/20/18 19:17 T-piece 6.0 28 03/20/18 18:00 99.7 112 16 128/75 (92) 98 99.7 03/20/18 17:30 T-piece 03/20/18 17:20 6.0 03/20/18 16:59 T-piece 6.0 03/20/18 16:00 110 03/20/18 16:00 T-piece 03/20/18 16:00 99.0 106 14 122/81 (95) 98 99.0 03/20/18 14:00 106 16 114/72 (86) 98 General Appearance: no apparent distress, alert EENT: PERRL/EOMI Neck: non-tender, normal alignment Rhythm: ST Cardiovascular: normal peripheral pulses, normal rate, tachycardia Respiratory/Chest: chest wall non-tender, lungs clear Abdomen: normal bowel sounds, non tender Extremities: normal range of motion, non-tender 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0) Red Cell Distribution Width 13.8 % (11.6-14.8) Platelet Count 476 K/UL (150-450) H Mean Platelet Volume 5.9 FL (6.5-10.1) L Neutrophils (%) (Auto) 40.5 % (45.0-75.0) L Lymphocytes (%) (Auto) 42.7 % (20.0-45.0) Monocytes (%) (Auto) 14.8 % (1.0-10.0) H Eosinophils (%) (Auto) 1.2 % (0.0-3.0) Basophils (%) (Auto) 0.8 % (0.0-2.0) Sodium Level 138 MMOL/L (136-145) # Potassium Level 3.1 MMOL/L (3.5-5.1) L Chloride Level 102 MMOL/L (98-107) Carbon Dioxide Level 28 MMOL/L (21-32) Anion Gap 9 mmol/L (5-15) Blood Urea Nitrogen 5 mg/dL (7-18) L Creatinine 0.5 MG/DL (0.55-1.30) L Estimat Glomerular Filtration Rate > 60 mL/min (>60) Glucose Level 94 MG/DL (74-106) Calcium Level 9.2 MG/DL (8.5-10.1) Microbiology Date/Time Source Procedure Growth Status 03/20/18 09:00 Rectum Received Mohsen Hinojosa MD Mar 21, 2018 13:04
[2018-03-21] MEDS ORDERED: Tubing IV Secondary IV ONE (13:10)
[2018-03-21] MEDS ORDERED: NS 275ml ONE (13:10)
--- NOTE | 2018-03-21 13:46 | Infectious Diseases Prog Note ---
Assessment/Plan Problems: (1) Catheter-associated urinary tract infection Assessment & Plan: continue zosyn empirically pending urine culture , will consider changing yen if significant infection confirmed (2) Fever Assessment & Plan: due to sepsis , continue wide spectrum antibiotics and tylenol prn (3) Sepsis Assessment & Plan: due to the above, continue vancomycin and zosyn empirically pending culture (4) Tracheostomy care Assessment & Plan: continue local care as needed (5) Dry gangrene Assessment & Plan: of the left foot , await arterial Doppler , recommend vascular eval (6) Conjunctivitis of both eyes Assessment & Plan: continue moxifloxacin eye drops for 5 days Subjective ROS Limited/Unobtainable: Yes Allergies: Coded Allergies: No Known Allergies (Unverified , 03/20/18) Subjective he was lying in bed, comfortable, afebrile, no cough or SOB, no fever or chills Objective Vital Signs Last 24 Hour Vital Signs Date Time Temp Pulse Resp B/P (MAP) Pulse Ox O2 Delivery O2 Flow Rate FiO2 03/21/18 13:40 98 T-piece 6.0 28 03/21/18 13:40 T-piece 6.0 03/21/18 12:00 101 03/21/18 10:45 115 119/82 03/21/18 08:00 T-piece 03/21/18 08:00 28 03/21/18 08:00 122 03/21/18 08:00 97.9 115 18 116/71 (86) 99 97.9 03/21/18 08:00 28 03/21/18 07:59 98 T-piece 6.0 03/21/18 06:45 T-piece 6.0 03/21/18 04:00 98.1 113 18 114/74 (87) 100 98.1 03/21/18 04:00 T-piece 03/21/18 04:00 28 03/21/18 04:00 113 03/21/18 00:25 T-piece 6.0 28 03/21/18 00:25 97 T-piece 6.0 03/21/18 00:00 T-piece 03/21/18 00:00 99.3 119 26 113/60 (77) 98 99.3 03/20/18 20:00 112 03/20/18 20:00 28 03/20/18 20:00 99.9 120 20 110/70 (83) 98 99.9 03/20/18 20:00 T-piece 03/20/18 19:17 100 T-piece 6.0 28 03/20/18 19:17 T-piece 6.0 28 03/20/18 18:00 99.7 112 16 128/75 (92) 98 99.7 03/20/18 17:30 T-piece 03/20/18 17:20 6.0 03/20/18 16:59 T-piece 6.0 03/20/18 16:00 110 03/20/18 16:00 T-piece 03/20/18 16:00 99.0 106 14 122/81 (95) 98 99.0 03/20/18 14:00 106 16 114/72 (86) 98 Height (Feet): 5 Height (Inches): 8.00 Weight (Pounds): 175 General Appearance: WD/WN, no acute distress HEENT: normocephalic, atraumatic, anicteric, mucous membranes moist, PERRL, EOMI, pharynx normal, supple, no JVD Respiratory/Chest: chest wall non-tender, no respiratory distress, no accessory muscle use, decreased breath sounds, crackles/rales Cardiovascular: normal peripheral pulses, normal rate, regular rhythm, no gallop/murmur, no JVD Abdomen: normal bowel sounds, soft, non tender, no organomegaly, non distended , no mass, no scars Extremities: no cyanosis, no clubbing Skin: no rash, no lesions, ulcers, other - left foot gangrene Neurologic/Psychiatric: unresponsiveness Lymphatic: no neck adenopathy, no groin adenopathy Microbiology Date/Time Source Procedure Growth Status 03/20/18 09:00 Rectum Received Laboratory Tests Test 03/21/18 03:45 White Blood Count 5.4 K/UL (4.8-10.8) Red Blood Count 3.47 M/UL (4.70-6.10) L Hemoglobin 9.9 G/DL (14.2-18.0) L Hematocrit 30.7 % (42.0-52.0) L Mean Corpuscular Volume 88 FL (80-99) Mean Corpuscular Hemoglobin 28.6 PG (27.0-31.0) Mean Corpuscular Hemoglobin Concent 32.3 G/DL (32.0-36.0) Red Cell Distribution Width 13.8 % (11.6-14.8) Platelet Count 476 K/UL (150-450) H Mean Platelet Volume 5.9 FL (6.5-10.1) L Neutrophils (%) (Auto) 40.5 % (45.0-75.0) L Lymphocytes (%) (Auto) 42.7 % (20.0-45.0) Monocytes (%) (Auto) 14.8 % (1.0-10.0) H Eosinophils (%) (Auto) 1.2 % (0.0-3.0) Basophils (%) (Auto) 0.8 % (0.0-2.0) Sodium Level 138 MMOL/L (136-145) # Potassium Level 3.1 MMOL/L (3.5-5.1) L Chloride Level 102 MMOL/L (98-107) Carbon Dioxide Level 28 MMOL/L (21-32) Anion Gap 9 mmol/L (5-15) Blood Urea Nitrogen 5 mg/dL (7-18) L Creatinine 0.5 MG/DL (0.55-1.30) L Estimat Glomerular Filtration Rate > 60 mL/min (>60) Glucose Level 94 MG/DL (74-106) Calcium Level 9.2 MG/DL (8.5-10.1) Current Medications Medications (Trade) Dose Ordered Sig/Jhonny Route PRN Reason Start Time Stop Time Status Last Admin Dose Admin Acetaminophen (Tylenol) 650 mg Q6H PRN ORAL Mild Pain/Temp > 100.5 03/20/18 22:15 04/19/18 22:14 03/21/18 01:08 Baclofen (Lioresal) 5 mg BID GT 03/20/18 21:00 04/19/18 20:59 03/21/18 10:44 Chlorhexidine Gluconate (Jackeline-Hex 2%) 1 applic DAILY@1999 TOPIC 03/21/18 20:00 04/20/18 19:59 Dextrose (Dextrose 50%) 25 ml Q1H PRN IV Hypoglycemia 03/20/18 11:45 Dextrose (Dextrose 50%) 50 ml Q1H PRN IV Hypoglycemia 03/20/18 11:45 Enoxaparin Sodium (Lovenox) 40 mg DAILY SUBQ 03/20/18 12:45 04/19/18 12:44 03/21/18 10:47 Famotidine (Pepcid) 20 mg BID GT 03/20/18 21:00 04/19/18 20:59 03/21/18 10:44 Levetiracetam (Keppra) 1,000 mg Q12HR GT 03/20/18 21:00 04/19/18 20:59 03/21/18 10:44 Moxifloxacin HCl (Vigamox) 1 drop Q8HR BOTH EYES 03/20/18 22:00 03/25/18 21:59 03/21/18 13:32 Piperacillin Sod/ Tazobactam Sod 3.375 gm/Sodium Chloride 110 ml @ 220 mls/hr Q8H IVPB 03/20/18 21:00 03/27/18 20:59 03/21/18 13:33 Propranolol HCl (Inderal) 10 mg DAILY ORAL 03/21/18 09:00 04/20/18 08:59 03/21/18 10:45 Pyridoxine HCl (Vitamin B6) 50 mg DAILY GT 03/21/18 09:00 04/20/18 08:59 03/21/18 10:44 Sodium Chloride 1,000 ml @ 50 mls/hr Q20H IVLG 03/20/18 12:31 04/19/18 12:30 03/21/18 08:31 Valproic Acid (Depakene) 250 mg Q12HR ORAL 03/20/18 21:00 04/19/18 20:59 03/21/18 10:45 Vancomycin HCl (Vanco rx to dose) 1 ea DAILY PRN MISC Per rx protocol 03/20/18 15:00 04/19/18 14:59 Vancomycin HCl 1 gm/Dextrose 275 ml @ 183.708 mls/hr Q12HR IVPB 03/20/18 21:00 03/25/18 20:59 03/21/18 10:45 Oneyda Stark M.D. Mar 21, 2018 13:46
[2018-03-21 16:00] VITALS: BP 119/72
[2018-03-21 20:00] VITALS: BP 114/68
[2018-03-21] MEDS: Dyna-Hex 2% Top Sol 2oz TOPIC SCH (21:50)
[2018-03-22] VITALS: BP 143/88
[2018-03-22 04:00] VITALS: BP 133/88
[2018-03-22] MEDS: Piperacillin/Tazobactam 3.375 GM in NS 110 ML IVPB SCH ×3 (05:18→20:57)
[2018-03-22] MEDS: Vigamox Opth Soln 3ml BOTH EYES SCH ×3 (05:19→21:57)
[2018-03-22 05:20] LABS: BASOPHILS % (AUTO) 0.7 % (0.0-2.0); HEMATOCRIT 33.2 % (42.0-52.0); HEMOGLOBIN 10.8 G/DL (14.2-18.0); LYMPHOCYTES % (AUTO) 38.3 % (20.0-45.0); MEAN CORPUSCULAR VOLUME 90 FL (80-99); MONOCYTES % (AUTO) 11.7 % (1.0-10.0); NEUTROPHILS % (AUTO) 48.3 % (45.0-75.0); PLATELET COUNT 422 K/UL (150-450); RED BLOOD COUNT 3.69 M/UL (4.70-6.10); RED CELL DISTRIBUTION WIDTH 14.4 % (11.6-14.8); WHITE BLOOD COUNT 6.2 K/UL (4.8-10.8)
[2018-03-22 05:53] LABS: ANION GAP 8 mmol/L (5-15); BLOOD UREA NITROGEN 7 mg/dL (7-18); CALCIUM 9.4 MG/DL (8.5-10.1); CARBON DIOXIDE 28 MMOL/L (21-32); CHLORIDE 102 MMOL/L (98-107); CREATININE 0.5 MG/DL (0.55-1.30); POTASSIUM 3.4 MMOL/L (3.5-5.1); SODIUM 138 MMOL/L (136-145)
[2018-03-22 08:00] VITALS: BP 112/73
--- NOTE | 2018-03-22 09:09 | Nephrology Progress Note ---
Assessment/Plan Assessment/Plan A/P 1) Sepsis- UTI, catheter related - Febrile. Per ID 2) Tachycardia- from fever/sepsis - BBlocker and cardiology mgmt 3) Resp Fl- trach on T-Piece 4) DVT prophylaxsis- lovenox sub q 5) Dry Gangrene left foot- Surgery to manage 6) Hyponatremia- corrected Subjective Date patient seen: Mar 22, 2018 Time patient seen: 09:02 ROS Limited/Unobtainable: Yes Allergies: Coded Allergies: No Known Allergies (Unverified , 03/20/18) Subjective Patient stable in no overt distress. Remains trached on high flow oxygen Objective Last 24 Hour Vital Signs Date Time Temp Pulse Resp B/P (MAP) Pulse Ox O2 Delivery O2 Flow Rate FiO2 03/22/18 07:12 T-piece 6.0 28 03/22/18 07:12 100 T-piece 6.0 28 03/22/18 06:03 100.5 03/22/18 05:33 100.5 03/22/18 04:00 100.2 121 20 133/88 (103) 99 100.2 03/22/18 04:00 118 03/22/18 04:00 28 03/22/18 04:00 T-piece 03/22/18 01:00 T-piece 6.0 28 03/22/18 01:00 99 T-piece 6.0 28 03/22/18 00:00 28 03/22/18 00:00 111 03/22/18 00:00 T-piece 03/22/18 00:00 98.2 106 19 143/88 (106) 100 98.2 03/21/18 20:00 28 03/21/18 20:00 98.1 103 20 114/68 (83) 100 98.1 03/21/18 20:00 112 03/21/18 20:00 T-piece 03/21/18 19:08 100 T-piece 6.0 28 03/21/18 19:08 T-piece 6.0 28 03/21/18 16:00 28 03/21/18 16:00 97.2 101 18 119/72 (88) 98 97.2 03/21/18 16:00 T-piece 03/21/18 16:00 97 03/21/18 13:40 98 T-piece 6.0 28 03/21/18 13:40 T-piece 6.0 28 03/21/18 12:00 101 03/21/18 12:00 98.1 100 18 120/81 (94) 99 98.1 03/21/18 12:00 28 03/21/18 12:00 T-piece 03/21/18 10:45 115 119/82 Intake and Output 03/21/18 03/22/18 19:00 07:00 Intake Total 630 ml 530 ml Output Total 2000 ml 1500 ml Balance -1370 ml -970 ml Tube Feeding 480 ml 440 ml Other 150 ml 90 ml Output Urine Total 2000 ml 1500 ml # Bowel Movements 3 2 Laboratory Tests 03/22/18 04:30: White Blood Count 6.2, Red Blood Count 3.69L, Hemoglobin 10.8L, Hematocrit 33.2L , Mean Corpuscular Volume 90, Mean Corpuscular Hemoglobin 29.2, Mean Corpuscular Hemoglobin Concent 32.5, Red Cell Distribution Width 14.4, Platelet Count 422, Mean Platelet Volume 6.0L, Neutrophils (%) (Auto) 48.3, Lymphocytes ( %) (Auto) 38.3, Monocytes (%) (Auto) 11.7H, Eosinophils (%) (Auto) 1.0, Basophils (%) (Auto) 0.7, Sodium Level 138, Potassium Level 3.4L, Chloride Level 102, Carbon Dioxide Level 28, Anion Gap 8, Blood Urea Nitrogen 7, Creatinine 0.5L, Estimat Glomerular Filtration Rate > 60, Glucose Level 97, Calcium Level 9.4 03/22/18 08:05: Vancomycin Level Trough 10.2 Height (Feet): 5 Height (Inches): 8.00 Weight (Pounds): 175 General Appearance: no apparent distress EENT: normal ENT inspection Neck: normal alignment, supple Cardiovascular: normal rate, regular rhythm Respiratory/Chest: rhonchi - bilaterally Abdomen: non tender, soft Edema: no edema noted Arm (L), no edema noted Arm (R), no edema noted Leg (L), no edema noted Leg (R), no edema noted Pedal (L), no edema noted Pedal (R), no edema noted Generalized Osvaldo Cooper MD Mar 22, 2018 09:09
[2018-03-22] MEDS: Propranolol 10mg tab ORAL SCH (09:26)
[2018-03-22] MEDS: Valproic Acid 250mg/5ml Liquid ORAL SCH ×2 (09:26→20:57)
[2018-03-22] MEDS: Pyridoxine 50mg tab GT SCH (09:26)
[2018-03-22] MEDS: Enoxaparin 40mg Inj SUBQ SCH (09:59)
[2018-03-22] MEDS: Vancomycin 1gm/D5W 275ml IVPB SCH ×4 (11:05→17:22)
--- NOTE | 2018-03-22 11:49 | General Surgery Progress Note ---
General Surgery-Progress Note Subjective Additional Comments pending arterial duplex. venous duplex limited given contractures Objective Last 24 Hour Vital Signs Date Time Temp Pulse Resp B/P (MAP) Pulse Ox O2 Delivery O2 Flow Rate FiO2 03/22/18 09:26 109 112/73 03/22/18 08:00 97.9 109 24 112/73 (86) 95 97.9 03/22/18 07:12 T-piece 6.0 28 03/22/18 07:12 100 T-piece 6.0 28 03/22/18 06:03 100.5 03/22/18 05:33 100.5 03/22/18 04:00 100.2 121 20 133/88 (103) 99 100.2 03/22/18 04:00 118 03/22/18 04:00 28 03/22/18 04:00 T-piece 03/22/18 01:00 T-piece 6.0 28 03/22/18 01:00 99 T-piece 6.0 28 03/22/18 00:00 28 03/22/18 00:00 111 03/22/18 00:00 T-piece 03/22/18 00:00 98.2 106 19 143/88 (106) 100 98.2 03/21/18 20:00 28 03/21/18 20:00 98.1 103 20 114/68 (83) 100 98.1 03/21/18 20:00 112 03/21/18 20:00 T-piece 03/21/18 19:08 100 T-piece 6.0 28 03/21/18 19:08 T-piece 6.0 28 03/21/18 16:00 28 03/21/18 16:00 97.2 101 18 119/72 (88) 98 97.2 03/21/18 16:00 T-piece 03/21/18 16:00 97 03/21/18 13:40 98 T-piece 6.0 28 03/21/18 13:40 T-piece 6.0 28 03/21/18 12:00 101 03/21/18 12:00 98.1 100 18 120/81 (94) 99 98.1 03/21/18 12:00 28 03/21/18 12:00 T-piece I&O Intake and Output 03/21/18 03/22/18 19:00 07:00 Intake Total 630 ml 530 ml Output Total 2000 ml 1500 ml Balance -1370 ml -970 ml Tube Feeding 480 ml 440 ml Other 150 ml 90 ml Output Urine Total 2000 ml 1500 ml # Bowel Movements 3 2 Dressing: other Wound: clean, other Drains: other Cardiovascular: RSR Respiratory: clear Abdomen: soft, flat, present bowel sounds Extremities: other Laboratory Tests Test 03/22/18 04:30 03/22/18 08:05 White Blood Count 6.2 K/UL (4.8-10.8) Red Blood Count 3.69 M/UL (4.70-6.10) L Hemoglobin 10.8 G/DL (14.2-18.0) L Hematocrit 33.2 % (42.0-52.0) L Mean Corpuscular Volume 90 FL (80-99) Mean Corpuscular Hemoglobin 29.2 PG (27.0-31.0) Mean Corpuscular Hemoglobin Concent 32.5 G/DL (32.0-36.0) Red Cell Distribution Width 14.4 % (11.6-14.8) Platelet Count 422 K/UL (150-450) Mean Platelet Volume 6.0 FL (6.5-10.1) L Neutrophils (%) (Auto) 48.3 % (45.0-75.0) Lymphocytes (%) (Auto) 38.3 % (20.0-45.0) Monocytes (%) (Auto) 11.7 % (1.0-10.0) H Eosinophils (%) (Auto) 1.0 % (0.0-3.0) Basophils (%) (Auto) 0.7 % (0.0-2.0) Sodium Level 138 MMOL/L (136-145) Potassium Level 3.4 MMOL/L (3.5-5.1) L Chloride Level 102 MMOL/L (98-107) Carbon Dioxide Level 28 MMOL/L (21-32) Anion Gap 8 mmol/L (5-15) Blood Urea Nitrogen 7 mg/dL (7-18) Creatinine 0.5 MG/DL (0.55-1.30) L Estimat Glomerular Filtration Rate > 60 mL/min (>60) Glucose Level 97 MG/DL (74-106) Calcium Level 9.4 MG/DL (8.5-10.1) Vancomycin Level Trough 10.2 ug/mL (5.0-12.0) Plan Problems: (1) Dry gangrene Assessment & Plan: Stable dry eschar on plantar aspect of Left 1st metatarsal / Great toe (L)2.2cm x (W)1.7cm... Periwound without erythema or induration. no drainage. no odor Stable dry eschar on plantar Left foot (L)1.4cm x (W)1.3cm... Periwound without induration or erythema. no drainage or order Left lateral and plantar aspect including Left 5th metatarsal there is a reabsorbing Blood Blister noted which presents with dry eschar and has fluctuant centrally (L)5.3cm x (W)3.5cm. Borders are adherent and dry without erythema or induration periwound. Both heels are soft dry and blanchable. right heel with <2cm area of soft eschar without drainage Non-Blanchable erythema buttocks Capillary refill okay. Poor pulses faint PT/DP. no venous congestion noted All wounds present on admission and will be cared for during hospital stay. Plan: Please place on Surface support mattress. Reposition at least every 2hours or as tolerated. Off-load heel with pillow Swab Wounds Plantar L foot with Benzoin Tincture .Cover with ABD and wrap with Soft Juan Ramon Daily and prn. Protective sacral foam drsg. Change weekly and prn Pending Arterial duplex studies Currently stable. Based on duplex studies will discuss with vascular surgery if appropriate for revascularization (2) Sepsis Panda Nru Mar 22, 2018 11:49
[2018-03-22 12:00] VITALS: BP 119/81
--- NOTE | 2018-03-22 13:33 | Cardiology Report ---
APPROVED REPORT EXAM: Two-dimensional and M-mode echocardiogram with Doppler and color Doppler. INDICATION Chest Pain M-Mode DIMENSIONS IVSd0.9 (0.7-1.1cm)Left Atrium (MM)2.8 (1.6-4.0cm) LVDd4.0 (3.5-5.6cm)Aortic Root3.1 (2.0-3.7cm) PWd0.9 (0.7-1.1cm)Aortic Cusp Exc.2.0 (1.5-2.0cm) LVDs3.1 (2.5-4.0cm) PWs1.3 cm Technically difficult study due to poor acoustic windows and patient on ventilator. Study quality precludes accurate assessment of regional wall motion. Normal left ventricular chamber size, systolic function and wall motion to extent visualized. Left ventricular ejection fraction estimated to be grossly normal. No evidence of left ventricular hypertrophy. No evidence of pericardial effusion. All other cardiac chamber sizes are within normal limits. Mild focal aortic valve sclerosis with adequate cusp excursion. Mildly thickened mitral valve leaflets with normal excursion. Mild mitral annulus and aortic root calcification. Pulmonic valve not well visualized. Normal tricuspid valve structure. IVC is normal in size with physiological collapse. A color flow and spectral Doppler study was performed and revealed: No aortic insufficiency. Trace mitral regurgitation. reduced left ventricular relaxation c/w impaired relaxation diastolic dysfunction. No tricuspid regurgitation. No pulmonic regurgitation present.
--- NOTE | 2018-03-22 14:03 | Cardiology Report ---
APPROVED REPORT EKG Measurement Heart [id number] Sinus tachycardia Otherwise normal ECG
--- NOTE | 2018-03-22 15:11 | Pulmonology Progress Note ---
Assessment/Plan Problems: (1) UTI (urinary tract infection) (2) Fever (3) Sepsis (4) Tracheostomy care Assessment/Plan care noted respiratory care without change suction oxygen aspiration precautions and monitor impression, plan, and exam edited and reviewed in detail care discussed with RN Subjective ROS Limited/Unobtainable: Yes Allergies: Coded Allergies: No Known Allergies (Unverified , 03/20/18) Subjective care discussed remains on trach collar Objective Last 24 Hour Vital Signs Date Time Temp Pulse Resp B/P (MAP) Pulse Ox O2 Delivery O2 Flow Rate FiO2 03/22/18 12:00 98.8 98 28 119/81 (94) 99 98.8 03/22/18 12:00 28 03/22/18 12:00 94 03/22/18 12:00 T-piece 03/22/18 09:26 109 112/73 03/22/18 08:00 114 03/22/18 08:00 28 03/22/18 08:00 97.9 109 24 112/73 (86) 95 97.9 03/22/18 08:00 T-piece 03/22/18 07:12 T-piece 6.0 28 03/22/18 07:12 100 T-piece 6.0 28 03/22/18 06:03 100.5 03/22/18 05:33 100.5 03/22/18 04:00 100.2 121 20 133/88 (103) 99 100.2 03/22/18 04:00 118 03/22/18 04:00 28 03/22/18 04:00 T-piece 03/22/18 01:00 T-piece 6.0 28 03/22/18 01:00 99 T-piece 6.0 28 03/22/18 00:00 28 03/22/18 00:00 111 03/22/18 00:00 T-piece 03/22/18 00:00 98.2 106 19 143/88 (106) 100 98.2 03/21/18 20:00 28 03/21/18 20:00 98.1 103 20 114/68 (83) 100 98.1 03/21/18 20:00 112 03/21/18 20:00 T-piece 03/21/18 19:08 100 T-piece 6.0 28 03/21/18 19:08 T-piece 6.0 28 03/21/18 16:00 28 03/21/18 16:00 97.2 101 18 119/72 (88) 98 97.2 03/21/18 16:00 T-piece 03/21/18 16:00 97 Intake and Output 03/21/18 03/22/18 19:00 07:00 Intake Total 630 ml 530 ml Output Total 2000 ml 1500 ml Balance -1370 ml -970 ml Tube Feeding 480 ml 440 ml Other 150 ml 90 ml Output Urine Total 2000 ml 1500 ml # Bowel Movements 3 2 Objective WDWN trach reduced breath sounds bilaterally without rhonchi or wheeze [id number] without MRG NABS nontender no HSM no CCE poor LOC Microbiology Date/Time Source Procedure Growth Status 03/20/18 09:05 Blood Blood Culture - Preliminary NO GROWTH AFTER 24 HOURS Resulted 03/20/18 08:50 Blood Blood Culture - Preliminary NO GROWTH AFTER 24 HOURS Resulted 03/20/18 09:00 Nasal Nares MRSA Culture - Final NO METHICILLIN RESISTANT STAPH AUREUS... Complete 03/20/18 08:50 Urine,Clean Catch Urine Culture - Preliminary YEAST Resulted 03/20/18 09:00 Rectum - Final NO CARBAPENEM-RESISTANT ENTEROBACTERI... Complete 03/20/18 04:00 Rectum VRE Culture - Final Enterococcus Faecium - Vre Complete Laboratory Tests 03/22/18 04:30: White Blood Count 6.2, Red Blood Count 3.69L, Hemoglobin 10.8L, Hematocrit 33.2L , Mean Corpuscular Volume 90, Mean Corpuscular Hemoglobin 29.2, Mean Corpuscular Hemoglobin Concent 32.5, Red Cell Distribution Width 14.4, Platelet Count 422, Mean Platelet Volume 6.0L, Neutrophils (%) (Auto) 48.3, Lymphocytes ( %) (Auto) 38.3, Monocytes (%) (Auto) 11.7H, Eosinophils (%) (Auto) 1.0, Basophils (%) (Auto) 0.7, Sodium Level 138, Potassium Level 3.4L, Chloride Level 102, Carbon Dioxide Level 28, Anion Gap 8, Blood Urea Nitrogen 7, Creatinine 0.5L, Estimat Glomerular Filtration Rate > 60, Glucose Level 97, Calcium Level 9.4 03/22/18 08:05: Vancomycin Level Trough 10.2 Current Medications Medications (Trade) Dose Ordered Sig/Jhonny Route PRN Reason Start Time Stop Time Status Last Admin Dose Admin Acetaminophen (Tylenol) 650 mg Q6H PRN ORAL Mild Pain/Temp > 100.5 03/20/18 22:15 04/19/18 22:14 03/22/18 05:33 Baclofen (Lioresal) 5 mg BID GT 03/20/18 21:00 04/19/18 20:59 03/22/18 09:26 Chlorhexidine Gluconate (Jackeline-Hex 2%) 1 applic DAILY@2000 TOPIC 03/21/18 20:00 04/20/18 19:59 03/21/18 21:50 Dextrose (Dextrose 50%) 25 ml Q1H PRN IV Hypoglycemia 03/20/18 11:45 Dextrose (Dextrose 50%) 50 ml Q1H PRN IV Hypoglycemia 03/20/18 11:45 Enoxaparin Sodium (Lovenox) 40 mg DAILY SUBQ 03/20/18 12:45 04/19/18 12:44 03/22/18 09:59 Famotidine (Pepcid) 20 mg BID GT 03/20/18 21:00 04/19/18 20:59 03/22/18 09:26 Levetiracetam (Keppra) 1,000 mg Q12HR GT 03/20/18 21:00 04/19/18 20:59 03/22/18 09:27 Moxifloxacin HCl (Vigamox) 1 drop Q8HR BOTH EYES 03/20/18 22:00 03/25/18 21:59 03/22/18 14:03 Piperacillin Sod/ Tazobactam Sod 3.375 gm/Sodium Chloride 110 ml @ 220 mls/hr Q8H IVPB 03/20/18 21:00 03/27/18 20:59 03/22/18 14:03 Potassium Chloride (K-Dur) 40 meq DAILY GT 03/22/18 09:12 04/21/18 09:11 03/22/18 09:27 Propranolol HCl (Inderal) 10 mg DAILY ORAL 03/21/18 09:00 04/20/18 08:59 03/22/18 09:26 Pyridoxine HCl (Vitamin B6) 50 mg DAILY GT 03/21/18 09:00 04/20/18 08:59 03/22/18 09:26 Sodium Chloride 1,000 ml @ 50 mls/hr Q20H IVLG 03/20/18 12:31 04/19/18 12:30 03/22/18 04:31 Valproic Acid (Depakene) 250 mg Q12HR ORAL 03/20/18 21:00 04/19/18 20:59 03/22/18 09:26 Vancomycin HCl (Vanco rx to dose) 1 ea DAILY PRN MISC Per rx protocol 03/20/18 15:00 04/19/18 14:59 Vancomycin HCl 1 gm/Dextrose 275 ml @ 183.708 mls/hr Q8H IVPB 03/22/18 10:00 03/27/18 09:59 03/22/18 11:05 Livan Martinez MD Mar 22, 2018 15:11
--- NOTE | 2018-03-22 15:32 | Cardiology Progress Note ---
Assessment/Plan Status: stable Assessment/Plan Assessment: 1) Sepsis- UTI 2) Tachycardia 3) COPD 4) Hypokalemia 5) Hyponatremia 6) Fever 7) Conjunctivitis 8) Trach/peg Plan: IV abx for UTI Replete electrolytes IV fluid bolus, patient clinically dry Tachycardia noted - hold beta blockers in setting of sepsis, will resolve once infection and fluid status improved Echocardiogram --> Normal left ventricular chamber size, systolic function and wall motion to extent visualized. Wound care Doppler arterial/venous to evaluate for revascularization NO indication for cardiac cath at this time Subjective Cardiovascular: Reports: no symptoms Respiratory: Reports: no symptoms Gastrointestinal/Abdominal: Reports: no symptoms Genitourinary: Reports: no symptoms Subjective No acute events, on IV abx, tube feeds running, tachycardia improved to 90s Objective Last 24 Hour Vital Signs Date Time Temp Pulse Resp B/P (MAP) Pulse Ox O2 Delivery O2 Flow Rate FiO2 03/22/18 13:16 T-piece 6.0 03/22/18 13:15 100 T-piece 6.0 03/22/18 12:00 98.8 98 28 119/81 (94) 99 98.8 03/22/18 12:00 28 03/22/18 12:00 94 03/22/18 12:00 T-piece 03/22/18 09:26 109 112/73 03/22/18 08:00 114 03/22/18 08:00 03/22/18 08:00 97.9 109 24 112/73 (86) 95 97.9 03/22/18 08:00 T-piece 03/22/18 07:12 T-piece 6.0 03/22/18 07:12 100 T-piece 6.0 03/22/18 06:03 100.5 03/22/18 05:33 100.5 03/22/18 04:00 100.2 121 20 133/88 (103) 99 100.2 03/22/18 04:00 118 03/22/18 04:00 28 03/22/18 04:00 T-piece 03/22/18 01:00 T-piece 6.0 28 03/22/18 01:00 99 T-piece 6.0 28 03/22/18 00:00 28 03/22/18 00:00 111 03/22/18 00:00 T-piece 03/22/18 00:00 98.2 106 19 143/88 (106) 100 98.2 03/21/18 20:00 28 03/21/18 20:00 98.1 103 20 114/68 (83) 100 98.1 03/21/18 20:00 112 03/21/18 20:00 T-piece 03/21/18 19:08 100 T-piece 6.0 28 03/21/18 19:08 T-piece 6.0 28 03/21/18 16:00 28 03/21/18 16:00 97.2 101 18 119/72 (88) 98 97.2 03/21/18 16:00 T-piece 03/21/18 16:00 97 General Appearance: no apparent distress, on vent EENT: PERRL/EOMI, normal ENT inspection Neck: non-tender, normal alignment Rhythm: ST Cardiovascular: normal peripheral pulses, normal rate, tachycardia Respiratory/Chest: chest wall non-tender, lungs clear Abdomen: normal bowel sounds, non tender Extremities: normal range of motion, non-tender Neurologic: bracelet maker novelty II-XII grossly normal Intake and Output 03/21/18 03/22/18 19:00 07:00 Intake Total 630 ml 530 ml Output Total 2000 ml 1500 ml Balance -1370 ml -970 ml Tube Feeding 480 ml 440 ml Other 150 ml 90 ml Output Urine Total 2000 ml 1500 ml # Bowel Movements 3 2 Laboratory Tests Test 03/22/18 04:30 03/22/18 08:05 White Blood Count 6.2 K/UL (4.8-10.8) Red Blood Count 3.69 M/UL (4.70-6.10) L Hemoglobin 10.8 G/DL (14.2-18.0) L Hematocrit 33.2 % (42.0-52.0) L Mean Corpuscular Volume 90 FL (80-99) Mean Corpuscular Hemoglobin 29.2 PG (27.0-31.0) Mean Corpuscular Hemoglobin Concent 32.5 G/DL (32.0-36.0) Red Cell Distribution Width 14.4 % (11.6-14.8) Platelet Count 422 K/UL (150-450) Mean Platelet Volume 6.0 FL (6.5-10.1) L Neutrophils (%) (Auto) 48.3 % (45.0-75.0) Lymphocytes (%) (Auto) 38.3 % (20.0-45.0) Monocytes (%) (Auto) 11.7 % (1.0-10.0) H Eosinophils (%) (Auto) 1.0 % (0.0-3.0) Basophils (%) (Auto) 0.7 % (0.0-2.0) Sodium Level 138 MMOL/L (136-145) Potassium Level 3.4 MMOL/L (3.5-5.1) L Chloride Level 102 MMOL/L (98-107) Carbon Dioxide Level 28 MMOL/L (21-32) Anion Gap 8 mmol/L (5-15) Blood Urea Nitrogen 7 mg/dL (7-18) Creatinine 0.5 MG/DL (0.55-1.30) L Estimat Glomerular Filtration Rate > 60 mL/min (>60) Glucose Level 97 MG/DL (74-106) Calcium Level 9.4 MG/DL (8.5-10.1) Vancomycin Level Trough 10.2 ug/mL (5.0-12.0) Microbiology Date/Time Source Procedure Growth Status 03/20/18 09:05 Blood Blood Culture - Preliminary NO GROWTH AFTER 24 HOURS Resulted 03/20/18 08:50 Blood Blood Culture - Preliminary NO GROWTH AFTER 24 HOURS Resulted 03/20/18 09:00 Nasal Nares MRSA Culture - Final NO METHICILLIN RESISTANT STAPH AUREUS... Complete 03/20/18 08:50 Urine,Clean Catch Urine Culture - Preliminary YEAST Resulted 03/20/18 09:00 Rectum - Final NO CARBAPENEM-RESISTANT ENTEROBACTERI... Complete 03/20/18 04:00 Rectum VRE Culture - Final Enterococcus Faecium - Vre Complete Mohsen Hinojosa MD Mar 22, 2018 15:32
--- NOTE | 2018-03-22 15:40 | Infectious Diseases Prog Note ---
Assessment/Plan Problems: (1) Catheter-associated urinary tract infection Assessment & Plan: due to yeast , will start fluconazole, and change yen catheter. (2) Fever Assessment & Plan: due to sepsis , continue wide spectrum antibiotics and tylenol prn (3) Sepsis Assessment & Plan: due to the above, continue vancomycin and zosyn empirically pending culture (4) Tracheostomy care Assessment & Plan: continue local care as needed (5) Dry gangrene Assessment & Plan: of the left foot , await arterial Doppler , recommend vascular eval (6) Conjunctivitis of both eyes Assessment & Plan: continue moxifloxacin eye drops for 5 days Subjective ROS Limited/Unobtainable: Yes Allergies: Coded Allergies: No Known Allergies (Unverified , 03/20/18) Subjective he was lying in bed, comfortable, had low grade fever , no cough or SOB, no chills Objective Vital Signs Last 24 Hour Vital Signs Date Time Temp Pulse Resp B/P (MAP) Pulse Ox O2 Delivery O2 Flow Rate FiO2 03/22/18 13:16 T-piece 6.0 28 03/22/18 13:15 100 T-piece 6.0 28 03/22/18 12:00 98.8 98 28 119/81 (94) 99 98.8 03/22/18 12:00 28 03/22/18 12:00 94 03/22/18 12:00 T-piece 03/22/18 09:26 109 112/73 03/22/18 08:00 114 03/22/18 08:00 28 03/22/18 08:00 97.9 109 24 112/73 (86) 95 97.9 03/22/18 08:00 T-piece 03/22/18 07:12 T-piece 6.0 28 03/22/18 07:12 100 T-piece 6.0 28 03/22/18 06:03 100.5 03/22/18 05:33 100.5 03/22/18 04:00 100.2 121 20 133/88 (103) 99 100.2 03/22/18 04:00 118 03/22/18 04:00 28 03/22/18 04:00 T-piece 03/22/18 01:00 T-piece 6.0 28 03/22/18 01:00 99 T-piece 6.0 28 03/22/18 00:00 28 03/22/18 00:00 111 03/22/18 00:00 T-piece 03/22/18 00:00 98.2 106 19 143/88 (106) 100 98.2 03/21/18 20:00 28 03/21/18 20:00 98.1 103 20 114/68 (83) 100 98.1 03/21/18 20:00 112 03/21/18 20:00 T-piece 03/21/18 19:08 100 T-piece 6.0 28 03/21/18 19:08 T-piece 6.0 28 03/21/18 16:00 28 03/21/18 16:00 97.2 101 18 119/72 (88) 98 97.2 03/21/18 16:00 T-piece 03/21/18 16:00 97 Height (Feet): 5 Height (Inches): 8.00 Weight (Pounds): 175 General Appearance: WD/WN, no acute distress, cachetic HEENT: anicteric, supple, no JVD, other - previous craniotomy Respiratory/Chest: chest wall non-tender, lungs clear, normal breath sounds, no respiratory distress, no accessory muscle use Cardiovascular: normal peripheral pulses, normal rate, regular rhythm, no gallop/murmur, no JVD Abdomen: normal bowel sounds, soft, non tender, no organomegaly, non distended , no mass, no scars Extremities: no cyanosis, no clubbing Skin: no rash, no lesions, no ulcers Neurologic/Psychiatric: alert, oriented x 3, responsive Lymphatic: no neck adenopathy, no groin adenopathy Musculoskeletal: normal muscle bulk, no effusion Microbiology Date/Time Source Procedure Growth Status 03/20/18 09:05 Blood Blood Culture - Preliminary NO GROWTH AFTER 24 HOURS Resulted 03/20/18 08:50 Blood Blood Culture - Preliminary NO GROWTH AFTER 24 HOURS Resulted 03/20/18 09:00 Nasal Nares MRSA Culture - Final NO METHICILLIN RESISTANT STAPH AUREUS... Complete 03/20/18 08:50 Urine,Clean Catch Urine Culture - Preliminary YEAST Resulted 03/20/18 09:00 Rectum - Final NO CARBAPENEM-RESISTANT ENTEROBACTERI... Complete 03/20/18 04:00 Rectum VRE Culture - Final Enterococcus Faecium - Vre Complete Laboratory Tests Test 03/22/18 04:30 03/22/18 08:05 White Blood Count 6.2 K/UL (4.8-10.8) Red Blood Count 3.69 M/UL (4.70-6.10) L Hemoglobin 10.8 G/DL (14.2-18.0) L Hematocrit 33.2 % (42.0-52.0) L Mean Corpuscular Volume 90 FL (80-99) Mean Corpuscular Hemoglobin 29.2 PG (27.0-31.0) Mean Corpuscular Hemoglobin Concent 32.5 G/DL (32.0-36.0) Red Cell Distribution Width 14.4 % (11.6-14.8) Platelet Count 422 K/UL (150-450) Mean Platelet Volume 6.0 FL (6.5-10.1) L Neutrophils (%) (Auto) 48.3 % (45.0-75.0) Lymphocytes (%) (Auto) 38.3 % (20.0-45.0) Monocytes (%) (Auto) 11.7 % (1.0-10.0) H Eosinophils (%) (Auto) 1.0 % (0.0-3.0) Basophils (%) (Auto) 0.7 % (0.0-2.0) Sodium Level 138 MMOL/L (136-145) Potassium Level 3.4 MMOL/L (3.5-5.1) L Chloride Level 102 MMOL/L (98-107) Carbon Dioxide Level 28 MMOL/L (21-32) Anion Gap 8 mmol/L (5-15) Blood Urea Nitrogen 7 mg/dL (7-18) Creatinine 0.5 MG/DL (0.55-1.30) L Estimat Glomerular Filtration Rate > 60 mL/min (>60) Glucose Level 97 MG/DL (74-106) Calcium Level 9.4 MG/DL (8.5-10.1) Vancomycin Level Trough 10.2 ug/mL (5.0-12.0) Current Medications Medications (Trade) Dose Ordered Sig/Jhonny Route PRN Reason Start Time Stop Time Status Last Admin Dose Admin Acetaminophen (Tylenol) 650 mg Q6H PRN ORAL Mild Pain/Temp > 100.5 03/20/18 22:15 04/19/18 22:14 03/22/18 05:33 Baclofen (Lioresal) 5 mg BID GT 03/20/18 21:00 04/19/18 20:59 03/22/18 09:26 Chlorhexidine Gluconate (Jackeline-Hex 2%) 1 applic DAILY@2000 TOPIC 03/21/18 20:00 04/20/18 19:59 03/21/18 21:50 Dextrose (Dextrose 50%) 25 ml Q1H PRN IV Hypoglycemia 03/20/18 11:45 Dextrose (Dextrose 50%) 50 ml Q1H PRN IV Hypoglycemia 03/20/18 11:45 Enoxaparin Sodium (Lovenox) 40 mg DAILY SUBQ 03/20/18 12:45 04/19/18 12:44 03/22/18 09:59 Famotidine (Pepcid) 20 mg BID GT 03/20/18 21:00 04/19/18 20:59 03/22/18 09:26 Levetiracetam (Keppra) 1,000 mg Q12HR GT 03/20/18 21:00 04/19/18 20:59 03/22/18 09:27 Moxifloxacin HCl (Vigamox) 1 drop Q8HR BOTH EYES 03/20/18 22:00 03/25/18 21:59 03/22/18 14:03 Piperacillin Sod/ Tazobactam Sod 3.375 gm/Sodium Chloride 110 ml @ 220 mls/hr Q8H IVPB 03/20/18 21:00 03/27/18 20:59 03/22/18 14:03 Potassium Chloride (K-Dur) 40 meq DAILY GT 03/22/18 09:12 04/21/18 09:11 03/22/18 09:27 Propranolol HCl (Inderal) 10 mg DAILY ORAL 03/21/18 09:00 04/20/18 08:59 03/22/18 09:26 Pyridoxine HCl (Vitamin B6) 50 mg DAILY GT 03/21/18 09:00 04/20/18 08:59 03/22/18 09:26 Sodium Chloride 1,000 ml @ 50 mls/hr Q20H IVLG 03/20/18 12:31 04/19/18 12:30 03/22/18 04:31 Valproic Acid (Depakene) 250 mg Q12HR ORAL 03/20/18 21:00 04/19/18 20:59 03/22/18 09:26 Vancomycin HCl (Vanco rx to dose) 1 ea DAILY PRN MISC Per rx protocol 03/20/18 15:00 04/19/18 14:59 Vancomycin HCl 1 gm/Dextrose 275 ml @ 183.708 mls/hr Q8H IVPB 03/22/18 10:00 03/27/18 09:59 03/22/18 11:05 Oneyda Stark M.D. Mar 22, 2018 15:40
[2018-03-22 16:00] VITALS: BP 129/86
[2018-03-22 20:00] VITALS: BP 134/67
[2018-03-22] MEDS: Dyna-Hex 2% Top Sol 2oz TOPIC SCH (20:07)
[2018-03-23] VITALS: BP 132/87
[2018-03-23] MEDS: Vancomycin 1gm/D5W 275ml IVPB SCH ×4 (01:34→10:56)
[2018-03-23 04:00] VITALS: BP 138/89
[2018-03-23] MEDS: Piperacillin/Tazobactam 3.375 GM in NS 110 ML IVPB SCH ×2 (05:04→13:48)
[2018-03-23] MEDS: Vigamox Opth Soln 3ml BOTH EYES SCH ×2 (05:52→13:48)
[2018-03-23 05:55] LABS: BASOPHILS % (AUTO) 0.3 % (0.0-2.0); EOSINOPHILS % (AUTO) 1.6 % (0.0-3.0); HEMATOCRIT 30.5 % (42.0-52.0); LYMPHOCYTES % (AUTO) 36.7 % (20.0-45.0); MEAN CORPUSCULAR VOLUME 88 FL (80-99); MONOCYTES % (AUTO) 9.6 % (1.0-10.0); NEUTROPHILS % (AUTO) 51.8 % (45.0-75.0); PLATELET COUNT 415 K/UL (150-450); RED BLOOD COUNT 3.47 M/UL (4.70-6.10); RED CELL DISTRIBUTION WIDTH 13.6 % (11.6-14.8); WHITE BLOOD COUNT 6.9 K/UL (4.8-10.8)
[2018-03-23 06:07] LABS: ANION GAP 8 mmol/L (5-15); BLOOD UREA NITROGEN 5 mg/dL (7-18); CALCIUM 9.2 MG/DL (8.5-10.1); CARBON DIOXIDE 27 MMOL/L (21-32); CHLORIDE 100 MMOL/L (98-107); CREATININE 0.4 MG/DL (0.55-1.30); POTASSIUM 3.6 MMOL/L (3.5-5.1); SODIUM 135 MMOL/L (136-145)
[2018-03-23 08:06] VITALS: BP 141/90
--- NOTE | 2018-03-23 09:24 | Nephrology Progress Note ---
Assessment/Plan Assessment/Plan A/P 1) Sepsis- UTI, catheter related - Febrile. Per ID as antifungal started and catheter replaced 2) Tachycardia- from fever/sepsis - BBlocker and cardiology mgmt 3) Resp Fl- trach on T-Piece and stable 4) DVT prophylaxsis- lovenox sub q 5) Dry Gangrene left foot- Surgery to manage. Poss revas post arterial duplex 6) Hyponatremia- corrected Plan for DC once cleared by Surgery and ID. Patient stable Subjective Date patient seen: Mar 23, 2018 Time patient seen: 09:22 ROS Limited/Unobtainable: Yes Allergies: Coded Allergies: No Known Allergies (Unverified , 03/20/18) Subjective Patient stable in no overt distress, trached on high flow oxygen Objective Last 24 Hour Vital Signs Date Time Temp Pulse Resp B/P (MAP) Pulse Ox O2 Delivery O2 Flow Rate FiO2 03/23/18 08:07 T-piece 03/23/18 08:07 28 03/23/18 08:06 98.2 112 24 141/90 (107) 99 98.2 03/23/18 06:40 99 T-piece 6.0 28 03/23/18 06:40 T-piece 6.0 28 03/23/18 04:00 28 03/23/18 04:00 T-piece 03/23/18 04:00 98.1 104 24 138/89 (105) 99 98.1 03/23/18 04:00 107 03/23/18 00:47 100 T-piece 6.0 28 03/23/18 00:47 T-piece 6.0 28 03/23/18 00:00 98 03/23/18 00:00 T-piece 03/23/18 00:00 28 03/23/18 00:00 98.2 100 28 132/87 (102) 99 98.2 03/22/18 20:00 97.1 83 28 134/67 (89) 99 97.1 03/22/18 20:00 T-piece 03/22/18 20:00 28 03/22/18 20:00 95 03/22/18 18:49 T-piece 6.0 28 03/22/18 18:49 100 T-piece 6.0 28 03/22/18 16:00 97 03/22/18 16:00 98.1 89 28 129/86 (100) 100 98.1 03/22/18 16:00 T-piece 03/22/18 16:00 28 03/22/18 13:16 T-piece 6.0 28 03/22/18 13:15 100 T-piece 6.0 28 03/22/18 12:00 98.8 98 28 119/81 (94) 99 98.8 03/22/18 12:00 28 03/22/18 12:00 94 03/22/18 12:00 T-piece 03/22/18 09:26 109 112/73 Intake and Output 03/22/18 03/23/18 19:00 07:00 Intake Total 2480.0 ml 1425.000 ml Output Total 900 ml 2050 ml Balance 1580.0 ml -625.000 ml IV Total 1880.0 ml 795.000 ml Tube Feeding 480 ml 480 ml Other 120 ml 150 ml Output Urine Total 900 ml 2050 ml # Bowel Movements 2 3 Laboratory Tests 03/23/18 04:51: White Blood Count 6.9, Red Blood Count 3.47L, Hemoglobin 10.0L, Hematocrit 30.5L , Mean Corpuscular Volume 88, Mean Corpuscular Hemoglobin 28.9, Mean Corpuscular Hemoglobin Concent 32.8, Red Cell Distribution Width 13.6, Platelet Count 415, Mean Platelet Volume 5.7L, Neutrophils (%) (Auto) 51.8, Lymphocytes ( %) (Auto) 36.7, Monocytes (%) (Auto) 9.6, Eosinophils (%) (Auto) 1.6, Basophils (%) (Auto) 0.3, Sodium Level 135L, Potassium Level 3.6, Chloride Level 100, Carbon Dioxide Level 27, Anion Gap 8, Blood Urea Nitrogen 5L, Creatinine 0.4L, Estimat Glomerular Filtration Rate > 60, Glucose Level 92, Calcium Level 9.2 03/23/18 09:05: Vancomycin Level Trough [Pending] Height (Feet): 5 Height (Inches): 8.00 Weight (Pounds): 175 General Appearance: no apparent distress EENT: normal ENT inspection Neck: normal alignment, supple Cardiovascular: tachycardia Respiratory/Chest: rhonchi - bilaterally Abdomen: non tender, soft Edema: no edema noted Arm (L), no edema noted Arm (R), no edema noted Leg (L), no edema noted Leg (R), no edema noted Pedal (L), no edema noted Pedal (R), no edema noted Generalized Osvaldo Cooper MD Mar 23, 2018 09:24
[2018-03-23] MEDS: Pyridoxine 50mg tab GT SCH (09:52)
[2018-03-23] MEDS: Propranolol 10mg tab ORAL SCH (09:53)
[2018-03-23] MEDS: Valproic Acid 250mg/5ml Liquid ORAL SCH (09:54)
[2018-03-23] MEDS: Enoxaparin 40mg Inj SUBQ SCH (09:56)
[2018-03-23 12:00] VITALS: BP 132/91
--- NOTE | 2018-03-23 12:01 | Cardiology Progress Note ---
Assessment/Plan Status: stable Assessment/Plan Assessment: 1) Sepsis- UTI 2) Tachycardia 3) COPD 4) Hypokalemia 5) Hyponatremia 6) Fever 7) Conjunctivitis 8) Trach/peg Plan: IV abx for UTI Replete electrolytes IV fluid bolus, patient clinically dry Tachycardia noted - hold beta blockers in setting of sepsis, will resolve once infection and fluid status improved Echocardiogram --> Normal left ventricular chamber size, systolic function and wall motion to extent visualized. Wound care Doppler arterial/venous to evaluate for revascularization NO indication for cardiac cath at this time Subjective Cardiovascular: Reports: no symptoms Respiratory: Reports: no symptoms Gastrointestinal/Abdominal: Reports: no symptoms Genitourinary: Reports: no symptoms Subjective 11 beats of VT, Vitals stable, Tube feeds running, continues on IV abx, tube feeds running, tachycardia 120s Objective Last 24 Hour Vital Signs Date Time Temp Pulse Resp B/P (MAP) Pulse Ox O2 Delivery O2 Flow Rate FiO2 03/23/18 09:53 112 141/90 03/23/18 08:07 T-piece 03/23/18 08:07 28 03/23/18 08:06 98.2 112 24 141/90 (107) 99 98.2 03/23/18 08:00 110 03/23/18 06:40 99 T-piece 6.0 28 03/23/18 06:40 T-piece 6.0 28 03/23/18 04:00 28 03/23/18 04:00 T-piece 03/23/18 04:00 98.1 104 24 138/89 (105) 99 98.1 03/23/18 04:00 107 03/23/18 00:47 100 T-piece 6.0 28 03/23/18 00:47 T-piece 6.0 28 03/23/18 00:00 98 03/23/18 00:00 T-piece 03/23/18 00:00 28 03/23/18 00:00 98.2 100 28 132/87 (102) 99 98.2 03/22/18 20:00 97.1 83 28 134/67 (89) 99 97.1 03/22/18 20:00 T-piece 03/22/18 20:00 28 03/22/18 20:00 95 03/22/18 18:49 T-piece 6.0 28 03/22/18 18:49 100 T-piece 6.0 28 03/22/18 16:00 97 03/22/18 16:00 98.1 89 28 129/86 (100) 100 98.1 03/22/18 16:00 T-piece 03/22/18 16:00 28 03/22/18 13:16 T-piece 6.0 28 03/22/18 13:15 100 T-piece 6.0 28 General Appearance: no apparent distress, on vent EENT: PERRL/EOMI, normal ENT inspection Neck: non-tender, normal alignment Rhythm: ST Cardiovascular: normal peripheral pulses, normal rate, tachycardia Respiratory/Chest: chest wall non-tender, lungs clear Abdomen: normal bowel sounds, non tender Extremities: normal range of motion, non-tender Neurologic: no motor/sensory deficits, abnormal gait Intake and Output 03/22/18 03/23/18 19:00 07:00 Intake Total 2480.0 ml 1425.000 ml Output Total 900 ml 2050 ml Balance 1580.0 ml -625.000 ml IV Total 1880.0 ml 795.000 ml Tube Feeding 480 ml 480 ml Other 120 ml 150 ml Output Urine Total 900 ml 2050 ml # Bowel Movements 2 3 Laboratory Tests Test 03/23/18 04:51 03/23/18 09:05 White Blood Count 6.9 K/UL (4.8-10.8) Red Blood Count 3.47 M/UL (4.70-6.10) L Hemoglobin 10.0 G/DL (14.2-18.0) L Hematocrit 30.5 % (42.0-52.0) L Mean Corpuscular Volume 88 FL (80-99) Mean Corpuscular Hemoglobin 28.9 PG (27.0-31.0) Mean Corpuscular Hemoglobin Concent 32.8 G/DL (32.0-36.0) Red Cell Distribution Width 13.6 % (11.6-14.8) Platelet Count 415 K/UL (150-450) Mean Platelet Volume 5.7 FL (6.5-10.1) L Neutrophils (%) (Auto) 51.8 % (45.0-75.0) Lymphocytes (%) (Auto) 36.7 % (20.0-45.0) Monocytes (%) (Auto) 9.6 % (1.0-10.0) Eosinophils (%) (Auto) 1.6 % (0.0-3.0) Basophils (%) (Auto) 0.3 % (0.0-2.0) Sodium Level 135 MMOL/L (136-145) L Potassium Level 3.6 MMOL/L (3.5-5.1) Chloride Level 100 MMOL/L (98-107) Carbon Dioxide Level 27 MMOL/L (21-32) Anion Gap 8 mmol/L (5-15) Blood Urea Nitrogen 5 mg/dL (7-18) L Creatinine 0.4 MG/DL (0.55-1.30) L Estimat Glomerular Filtration Rate > 60 mL/min (>60) Glucose Level 92 MG/DL (74-106) Calcium Level 9.2 MG/DL (8.5-10.1) Vancomycin Level Trough 18.0 ug/mL (5.0-12.0) H Mohsen Hinojosa MD Mar 23, 2018 12:01
--- NOTE | 2018-03-23 12:56 | General Surgery Progress Note ---
General Surgery-Progress Note Subjective Additional Comments no acute events. Objective Last 24 Hour Vital Signs Date Time Temp Pulse Resp B/P (MAP) Pulse Ox O2 Delivery O2 Flow Rate FiO2 03/23/18 09:53 112 141/90 03/23/18 08:07 T-piece 03/23/18 08:07 28 03/23/18 08:06 98.2 112 24 141/90 (107) 99 98.2 03/23/18 08:00 110 03/23/18 06:40 99 T-piece 6.0 28 03/23/18 06:40 T-piece 6.0 28 03/23/18 04:00 28 03/23/18 04:00 T-piece 03/23/18 04:00 98.1 104 24 138/89 (105) 99 98.1 03/23/18 04:00 107 03/23/18 00:47 100 T-piece 6.0 28 03/23/18 00:47 T-piece 6.0 28 03/23/18 00:00 98 03/23/18 00:00 T-piece 03/23/18 00:00 28 03/23/18 00:00 98.2 100 28 132/87 (102) 99 98.2 03/22/18 20:00 97.1 83 28 134/67 (89) 99 97.1 03/22/18 20:00 T-piece 03/22/18 20:00 28 03/22/18 20:00 95 03/22/18 18:49 T-piece 6.0 28 03/22/18 18:49 100 T-piece 6.0 28 03/22/18 16:00 97 03/22/18 16:00 98.1 89 28 129/86 (100) 100 98.1 03/22/18 16:00 T-piece 03/22/18 16:00 28 03/22/18 13:16 T-piece 6.0 28 03/22/18 13:15 100 T-piece 6.0 28 I&O Intake and Output 03/22/18 03/23/18 19:00 07:00 Intake Total 2480.0 ml 1425.000 ml Output Total 900 ml 2050 ml Balance 1580.0 ml -625.000 ml IV Total 1880.0 ml 795.000 ml Tube Feeding 480 ml 480 ml Other 120 ml 150 ml Output Urine Total 900 ml 2050 ml # Bowel Movements 2 3 Dressing: dry Wound: other Drains: other Cardiovascular: RSR Respiratory: clear Abdomen: soft, flat, present bowel sounds Extremities: other Laboratory Tests Test 03/23/18 04:51 03/23/18 09:05 White Blood Count 6.9 K/UL (4.8-10.8) Red Blood Count 3.47 M/UL (4.70-6.10) L Hemoglobin 10.0 G/DL (14.2-18.0) L Hematocrit 30.5 % (42.0-52.0) L Mean Corpuscular Volume 88 FL (80-99) Mean Corpuscular Hemoglobin 28.9 PG (27.0-31.0) Mean Corpuscular Hemoglobin Concent 32.8 G/DL (32.0-36.0) Red Cell Distribution Width 13.6 % (11.6-14.8) Platelet Count 415 K/UL (150-450) Mean Platelet Volume 5.7 FL (6.5-10.1) L Neutrophils (%) (Auto) 51.8 % (45.0-75.0) Lymphocytes (%) (Auto) 36.7 % (20.0-45.0) Monocytes (%) (Auto) 9.6 % (1.0-10.0) Eosinophils (%) (Auto) 1.6 % (0.0-3.0) Basophils (%) (Auto) 0.3 % (0.0-2.0) Sodium Level 135 MMOL/L (136-145) L Potassium Level 3.6 MMOL/L (3.5-5.1) Chloride Level 100 MMOL/L (98-107) Carbon Dioxide Level 27 MMOL/L (21-32) Anion Gap 8 mmol/L (5-15) Blood Urea Nitrogen 5 mg/dL (7-18) L Creatinine 0.4 MG/DL (0.55-1.30) L Estimat Glomerular Filtration Rate > 60 mL/min (>60) Glucose Level 92 MG/DL (74-106) Calcium Level 9.2 MG/DL (8.5-10.1) Vancomycin Level Trough 18.0 ug/mL (5.0-12.0) H Plan Problems: (1) Dry gangrene Assessment & Plan: Stable dry eschar on plantar aspect of Left 1st metatarsal / Great toe (L)2.2cm x (W)1.7cm... Periwound without erythema or induration. no drainage. no odor Stable dry eschar on plantar Left foot (L)1.4cm x (W)1.3cm... Periwound without induration or erythema. no drainage or order Left lateral and plantar aspect including Left 5th metatarsal there is a reabsorbing Blood Blister noted which presents with dry eschar and has fluctuant centrally (L)5.3cm x (W)3.5cm. Borders are adherent and dry without erythema or induration periwound. Both heels are soft dry and blanchable. right heel with <2cm area of soft eschar without drainage Non-Blanchable erythema buttocks Capillary refill okay. pulses improved and 1+ DP/PT today. no venous congestion noted All wounds present on admission and will be cared for during hospital stay. Plan: Please place on Surface support mattress. Reposition at least every 2hours or as tolerated. Off-load heel with pillow Swab Wounds Plantar L foot with Benzoin Tincture .Cover with ABD and wrap with Soft Juan Ramon Daily and prn. Protective sacral foam drsg. Change weekly and prn Pending Arterial duplex studies Currently stable. Based on duplex studies will discuss with vascular surgery if appropriate for revascularization okay to d/c from surgical standpoint with outpatient follow up (2) Sepsis Panda Nur Mar 23, 2018 12:56
[2018-03-23] MEDS ORDERED: NS 275ml ONE (15:35)
[2018-03-23] MEDS ORDERED: NS Irrig 1000ml ONE (15:35)
[2018-03-23] MEDS ORDERED: Tubing IV Secondary IV ONE (15:35)
[2018-03-23 15:59] VITALS: BP 139/90
--- NOTE | 2018-03-23 16:41 | Infectious Diseases Prog Note ---
Assessment/Plan Problems: (1) Catheter-associated urinary tract infection Assessment & Plan: due to yeast , continue fluconazole for two weeks , S/P yen catheter change . (2) Fever Assessment & Plan: due to the above, resolved, continue tylenol prn (3) Sepsis Assessment & Plan: was ruled out with negative blood culture , will stop vancomycin and zosyn empirically (4) Tracheostomy care Assessment & Plan: continue local care as needed (5) Dry gangrene Assessment & Plan: of the left foot , await arterial Doppler , recommend vascular eval for angiography (6) Conjunctivitis of both eyes Assessment & Plan: continue moxifloxacin eye drops for 5 days Subjective ROS Limited/Unobtainable: Yes Allergies: Coded Allergies: No Known Allergies (Unverified , 03/20/18) Subjective he was lying in bed, comfortable, had low grade fever , no cough or SOB, no chills Objective Vital Signs Last 24 Hour Vital Signs Date Time Temp Pulse Resp B/P (MAP) Pulse Ox O2 Delivery O2 Flow Rate FiO2 03/23/18 16:00 28 03/23/18 16:00 T-piece 03/23/18 15:59 98.4 101 20 139/90 (106) 100 98.4 03/23/18 13:25 99 T-piece 6.0 28 03/23/18 13:25 T-piece 6.0 28 03/23/18 12:00 28 03/23/18 12:00 97.9 96 20 132/91 (105) 100 97.9 03/23/18 12:00 90 03/23/18 12:00 T-piece 03/23/18 09:53 112 141/90 03/23/18 08:07 T-piece 03/23/18 08:07 28 03/23/18 08:06 98.2 112 24 141/90 (107) 99 98.2 03/23/18 08:00 110 03/23/18 06:40 99 T-piece 6.0 28 03/23/18 06:40 T-piece 6.0 28 03/23/18 04:00 28 03/23/18 04:00 T-piece 03/23/18 04:00 98.1 104 24 138/89 (105) 99 98.1 03/23/18 04:00 107 9/24/18 00:47 100 T-piece 6.0 28 03/23/18 00:47 T-piece 6.0 28 03/23/18 00:00 98 03/23/18 00:00 T-piece 03/23/18 00:00 28 03/23/18 00:00 98.2 100 28 132/87 (102) 99 98.2 03/22/18 20:00 97.1 83 28 134/67 (89) 99 97.1 03/22/18 20:00 T-piece 03/22/18 20:00 28 03/22/18 20:00 95 03/22/18 18:49 T-piece 6.0 28 03/22/18 18:49 100 T-piece 6.0 28 Height (Feet): 5 Height (Inches): 8.00 Weight (Pounds): 175 General Appearance: WD/WN, no acute distress HEENT: normocephalic, atraumatic, anicteric, mucous membranes moist, PERRL Respiratory/Chest: chest wall non-tender, lungs clear, normal breath sounds, no respiratory distress, no accessory muscle use Cardiovascular: normal peripheral pulses, normal rate, regular rhythm, no gallop/murmur, no JVD Abdomen: normal bowel sounds, soft, non tender, no organomegaly, non distended , no mass, no scars Extremities: no cyanosis, no clubbing, other - poor pulses in both feet Skin: no rash, no lesions, other - left foot gangrene , dry Neurologic/Psychiatric: unresponsiveness Laboratory Tests Test 03/23/18 04:51 03/23/18 09:05 White Blood Count 6.9 K/UL (4.8-10.8) Red Blood Count 3.47 M/UL (4.70-6.10) L Hemoglobin 10.0 G/DL (14.2-18.0) L Hematocrit 30.5 % (42.0-52.0) L Mean Corpuscular Volume 88 FL (80-99) Mean Corpuscular Hemoglobin 28.9 PG (27.0-31.0) Mean Corpuscular Hemoglobin Concent 32.8 G/DL (32.0-36.0) Red Cell Distribution Width 13.6 % (11.6-14.8) Platelet Count 415 K/UL (150-450) Mean Platelet Volume 5.7 FL (6.5-10.1) L Neutrophils (%) (Auto) 51.8 % (45.0-75.0) Lymphocytes (%) (Auto) 36.7 % (20.0-45.0) Monocytes (%) (Auto) 9.6 % (1.0-10.0) Eosinophils (%) (Auto) 1.6 % (0.0-3.0) Basophils (%) (Auto) 0.3 % (0.0-2.0) Sodium Level 135 MMOL/L (136-145) L Potassium Level 3.6 MMOL/L (3.5-5.1) Chloride Level 100 MMOL/L (98-107) Carbon Dioxide Level 27 MMOL/L (21-32) Anion Gap 8 mmol/L (5-15) Blood Urea Nitrogen 5 mg/dL (7-18) L Creatinine 0.4 MG/DL (0.55-1.30) L Estimat Glomerular Filtration Rate > 60 mL/min (>60) Glucose Level 92 MG/DL (74-106) Calcium Level 9.2 MG/DL (8.5-10.1) Vancomycin Level Trough 18.0 ug/mL (5.0-12.0) H Current Medications Medications (Trade) Dose Ordered Sig/Jhonny Route PRN Reason Start Time Stop Time Status Last Admin Dose Admin Acetaminophen (Tylenol) 650 mg Q6H PRN ORAL Mild Pain/Temp > 100.5 03/20/18 22:15 04/19/18 22:14 03/22/18 05:33 Baclofen (Lioresal) 5 mg BID GT 03/20/18 21:00 04/19/18 20:59 03/23/18 09:52 Chlorhexidine Gluconate (Jackeline-Hex 2%) 1 applic DAILY@1999 TOPIC 03/21/18 20:00 04/20/18 19:59 03/22/18 20:07 Dextrose (Dextrose 50%) 25 ml Q1H PRN IV Hypoglycemia 03/20/18 11:45 Dextrose (Dextrose 50%) 50 ml Q1H PRN IV Hypoglycemia 03/20/18 11:45 Enoxaparin Sodium (Lovenox) 40 mg DAILY SUBQ 03/20/18 12:45 04/19/18 12:44 9/24/18 09:56 Famotidine (Pepcid) 20 mg BID GT 03/20/18 21:00 04/19/18 20:59 03/23/18 09:52 Fluconazole/ Sodium Chloride 100 ml @ 100 mls/hr Q24H IV 03/22/18 17:00 03/29/18 16:59 03/22/18 17:07 Levetiracetam (Keppra) 1,000 mg Q12HR GT 03/20/18 21:00 04/19/18 20:59 03/23/18 09:53 Moxifloxacin HCl (Vigamox) 1 drop Q8HR BOTH EYES 03/20/18 22:00 03/25/18 21:59 03/23/18 13:48 Potassium Chloride (K-Dur) 40 meq DAILY GT 03/22/18 09:12 04/21/18 09:11 03/23/18 09:53 Propranolol HCl (Inderal) 10 mg DAILY ORAL 03/21/18 09:00 04/20/18 08:59 03/23/18 09:53 Pyridoxine HCl (Vitamin B6) 50 mg DAILY GT 03/21/18 09:00 04/20/18 08:59 03/23/18 09:52 Sodium Chloride 1,000 ml @ 50 mls/hr Q20H IVLG 03/20/18 12:31 04/19/18 12:30 03/23/18 00:57 Valproic Acid (Depakene) 250 mg Q12HR ORAL 03/20/18 21:00 04/19/18 20:59 03/23/18 09:54 Oneyda Stark M.D. Mar 23, 2018 16:41
[2018-03-23 19:30] VITALS: BP 157/99
--- NOTE | 2018-03-23 20:26 | Pulmonology Progress Note ---
Assessment/Plan Problems: (1) UTI (urinary tract infection) (2) Fever (3) Sepsis (4) Tracheostomy care Assessment/Plan care noted respiratory care as is suction oxygen aspiration precautions and monitor impression, plan, and exam edited and reviewed in detail care discussed with RN Subjective Allergies: Coded Allergies: No Known Allergies (Unverified , 03/20/18) Subjective care discussed remains on trach collar Objective Last 24 Hour Vital Signs Date Time Temp Pulse Resp B/P (MAP) Pulse Ox O2 Delivery O2 Flow Rate FiO2 03/23/18 16:00 28 03/23/18 16:00 98 03/23/18 16:00 T-piece 03/23/18 15:59 98.4 101 20 139/90 (106) 100 98.4 03/23/18 13:25 99 T-piece 6.0 28 03/23/18 13:25 T-piece 6.0 28 03/23/18 12:00 28 03/23/18 12:00 97.9 96 20 132/91 (105) 100 97.9 03/23/18 12:00 90 03/23/18 12:00 T-piece 03/23/18 09:53 112 141/90 03/23/18 08:07 T-piece 03/23/18 08:07 28 03/23/18 08:06 98.2 112 24 141/90 (107) 99 98.2 03/23/18 08:00 110 03/23/18 06:40 99 T-piece 6.0 03/23/18 06:40 T-piece 6.0 28 03/23/18 04:00 28 03/23/18 04:00 T-piece 03/23/18 04:00 98.1 104 24 138/89 (105) 99 98.1 03/23/18 04:00 107 03/23/18 00:47 100 T-piece 6.0 03/23/18 00:47 T-piece 6.0 28 03/23/18 00:00 98 03/23/18 00:00 T-piece 03/23/18 00:00 28 03/23/18 00:00 98.2 100 28 132/87 (102) 99 98.2 Intake and Output 03/22/18 03/23/18 19:00 07:00 Intake Total 2480.0 ml 1425.000 ml Output Total 900 ml 2050 ml Balance 1580.0 ml -625.000 ml IV Total 1880.0 ml 795.000 ml Tube Feeding 480 ml 480 ml Other 120 ml 150 ml Output Urine Total 900 ml 2050 ml # Bowel Movements 2 3 Objective WDWN trach reduced breath sounds bilaterally without rhonchi or wheeze [id number] without MRG NABS nontender no HSM no CCE poor LOC Laboratory Tests 03/23/18 04:51: White Blood Count 6.9, Red Blood Count 3.47L, Hemoglobin 10.0L, Hematocrit 30.5L , Mean Corpuscular Volume 88, Mean Corpuscular Hemoglobin 28.9, Mean Corpuscular Hemoglobin Concent 32.8, Red Cell Distribution Width 13.6, Platelet Count 415, Mean Platelet Volume 5.7L, Neutrophils (%) (Auto) 51.8, Lymphocytes ( %) (Auto) 36.7, Monocytes (%) (Auto) 9.6, Eosinophils (%) (Auto) 1.6, Basophils (%) (Auto) 0.3, Sodium Level 135L, Potassium Level 3.6, Chloride Level 100, Carbon Dioxide Level 27, Anion Gap 8, Blood Urea Nitrogen 5L, Creatinine 0.4L, Estimat Glomerular Filtration Rate > 60, Glucose Level 92, Calcium Level 9.2 03/23/18 09:05: Vancomycin Level Trough 18.0H Current Medications Medications (Trade) Dose Ordered Sig/Jhonny Route PRN Reason Start Time Stop Time Status Last Admin Dose Admin Acetaminophen (Tylenol) 650 mg Q6H PRN ORAL Mild Pain/Temp > 100.5 03/20/18 22:15 04/19/18 22:14 03/22/18 05:33 Baclofen (Lioresal) 5 mg BID GT 03/20/18 21:00 04/19/18 20:59 03/23/18 17:32 Chlorhexidine Gluconate (Jackeline-Hex 2%) 1 applic DAILY@1999 TOPIC 03/21/18 20:00 04/20/18 19:59 03/22/18 20:07 Dextrose (Dextrose 50%) 25 ml Q1H PRN IV Hypoglycemia 03/20/18 11:45 Dextrose (Dextrose 50%) 50 ml Q1H PRN IV Hypoglycemia 03/20/18 11:45 Enoxaparin Sodium (Lovenox) 40 mg DAILY SUBQ 03/20/18 12:45 04/19/18 12:44 03/23/18 09:56 Famotidine (Pepcid) 20 mg BID GT 03/20/18 21:00 04/19/18 20:59 03/23/18 17:32 Fluconazole/ Sodium Chloride 100 ml @ 100 mls/hr Q24H IV 03/22/18 17:00 03/29/18 16:59 03/23/18 17:32 Levetiracetam (Keppra) 1,000 mg Q12HR GT 03/20/18 21:00 04/19/18 20:59 03/23/18 09:53 Moxifloxacin HCl (Vigamox) 1 drop Q8HR BOTH EYES 03/20/18 22:00 03/25/18 21:59 03/23/18 13:48 Potassium Chloride (K-Dur) 40 meq DAILY GT 03/22/18 09:12 04/21/18 09:11 03/23/18 09:53 Propranolol HCl (Inderal) 10 mg DAILY ORAL 03/21/18 09:00 04/20/18 08:59 03/23/18 09:53 Pyridoxine HCl (Vitamin B6) 50 mg DAILY GT 03/21/18 09:00 04/20/18 08:59 03/23/18 09:52 Sodium Chloride 1,000 ml @ 50 mls/hr Q20H IVLG 03/20/18 12:31 04/19/18 12:30 03/23/18 00:57 Valproic Acid (Depakene) 250 mg Q12HR ORAL 03/20/18 21:00 04/19/18 20:59 03/23/18 09:54 Livan Martinez MD Mar 23, 2018 20:26
--- NOTE | 2018-03-25 09:40 | Discharge Summary ---
Discharge Summary Discharge Summary _ DATE OF ADMISSION: 03/20/2018 DATE OF DISCHARGE: 03/23/2018 REASON FOR ADMISSION: 48 years old male with past medical history of chronic respiratory failure, tracheostomy status, intracranial trauma, seizure disorder, dysphagia, G-tube feeding, hepatitis C, anoxic brain encephalopathy, contracted, [facility] from the [facility] facility for evaluation of fever and tachycardia. Upon evaluation in emergency department patient was febrile, tachycardic and tachypneic. Laboratory workup revealed no leukocytosis. Sodium 126, potassium 3.4, chloride 90. Lactic acid 1.1. Troponin was negative. No leukocytosis. Hemoglobin 10.4, hematocrit 31.1. Urinalysis with evidence evidence of pyuria and few bacteria . Chest x-ray revealed no acute cardiopulmonary pathology. EKG revealed sinus tachycardia, no acute ischemic changes. Patient admitted with diagnoses of sepsis most probably due to urinary tract infection ,chronic respiratory failure ,tracheostomy status, acute hyponatremia and hypokalemia, seizure disorder ,tachycardia likely secondary to sepsis. CONSULTANTS: bone glue maker Dr. Hinojosa pulmonary Dr. Martinez ID specialist Dr. Stark surgery Dr. Nur [facility] COURSE: Patient admitted. Patient started on empiric antibiotics. Infectious disease specialist closely followed. Tracheostomy care provided. Pulmonary toilet provided as needed. Chest x-ray revealed no acute cardiopulmonary pathology. FiO2 titrated to keep pulse oximetry above 92%. Patient suctioned as needed. Blood culture were negative. Urine culture revealed Mary. Patient likely had catheter associated urinary tract infection with Mary. Patient was on fluconazole and to be continued for total of 2 weeks as per ID specialist recommendations . Vancomycin and Zosyn were discontinued. Antibiotic eyedrops to be continued for total of 5 days for bilateral conjunctivitis. Renal parameters and electrolytes were clsoely monitored and electrolytes corrected as needed. Hyponatremia and hypokalemia were corrected. Nephrotoxics were avoided. Sales Representative Advertising followed for sinus tachycardia. According to bone glue maker, sinus tachycardia was related to infection and fluid status and resolved as infectious process cleared and fluid status normalized. Echocardiogram revealed preserved ejection fraction. No indication for cardiac catheterization at this time. Surgeon followed. Wound care provided as per surgeon's recommendation. Surgeon recommended arterial duplex and depending on result consider vascular surgery evaluation as outpatient for possible revascularization. Supportive care provided . Pain management was addressed. DVT prophylaxis provided . Seizure precautions maintained. Keppra and Depakote were continued. Patient stabilized and was ready for discharge to [facility] for continuation of care. FINAL DIAGNOSES: Probable sepsis Catheter associated urinary tract infection with Mary Chronic respiratory failure Tracheostomy status Dry gangrene left foot COPD Bilateral conjunctivitis Acute hyponatremia - resolved Acute hypokalemia -resolved Seizure disorder DISCHARGE MEDICATIONS: List of Medication was sent to accepting facility DISCHARGE INSTRUCTIONS: []Patient was discharged to the [facility] facility. Follow up with medical doctor at the facility. Arterial duplex bilateral lower extremity will be completed at the facility , and depending on result, consider vascular surgery consult for possible revascularization . Continue wound care at the facility as per surgeon's recommendation I have been assigned to dictate discharge summary for this account. I was not involved in the patient's management. Neris Rose NP Mar 25, 2018 09:40
== END 2018-03-23 20:00 | DRG 466 ==
LOC: EDBD 08:35 → EMR 08:57 → 2W 09:55 → EDBEDREQ 10:23
DX: T83.511A Infection and inflammatory reaction due to indwelling urethral catheter, initial encounter (principal); A41.9 Sepsis, unspecified organism; J96.10 Chronic respiratory failure, unspecified whether with hypoxia or hypercapnia; I96 Gangrene, not elsewhere classified; Z43.0 Encounter for attention to tracheostomy; E87.1 Hypo-osmolality and hyponatremia; B37.49 Other urogenital candidiasis; Y84.6 Urinary catheterization as the cause of abnormal reaction of the patient, or of later complication, without mention of misadventure at the time of the procedure; J44.9 Chronic obstructive pulmonary disease, unspecified; H10.9 Unspecified conjunctivitis; E87.6 Hypokalemia; G40.909 Epilepsy, unspecified, not intractable, without status epilepticus; I10 Essential (primary) hypertension; Z98.890 Other specified postprocedural states; Z43.1 Encounter for attention to gastrostomy; Z87.820 Personal history of traumatic brain injury
CPT/HCPCS: 36415; 71045; 80048; 80053; 80164; 80202; 80299; 81003; 82550; 82553; 83605; 83690; 83880; 84484; 85025; 87040; 87081; 87086; 93005; 93306; 94760; 96361; 96365; 96368; 99285; J8499

== ENCOUNTER 2018-04-29 20:52 | Inpatient (IN) | payer OTHER ==
[~2018-04-29] VITALS: Ht 167.6 cm; Wt 81.2 kg
[~2018-04-29 20:52] MED LIST: BACLOFEN10 MG GT; INDERAL20 MG GT; KEPPRA1000 MG GT; PEPCID AC20 M2 GT; PYRIDOXINE HCL50 MG GT; VALPROIC ACID250 MG GT
[2018-04-29] MEDS ORDERED: Cefepime HCl 1 GM in NS 55 ML IV STA (20:53)
[2018-04-29] MEDS ORDERED: Vancomycin 1 GM in NS 275 ML IV ONE (21:00)
[2018-04-29] MEDS ORDERED: NS 1000ml 2,200 ML IVLG ONE (21:00)
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
[2018-04-29 21:51] LABS: BASOPHILS % (AUTO) 0.5 % (0.0-2.0); EOSINOPHILS % (AUTO) 0.2 % (0.0-3.0); HEMATOCRIT 33.7 % (42.0-52.0); HEMOGLOBIN 11.3 G/DL (14.2-18.0); LYMPHOCYTES % (AUTO) 10.3 % (20.0-45.0); MEAN CORPUSCULAR VOLUME 89 FL (80-99); MONOCYTES % (AUTO) 4.8 % (1.0-10.0); NEUTROPHILS % (AUTO) 84.3 % (45.0-75.0); PLATELET COUNT 797 K/UL (150-450); RED BLOOD COUNT 3.78 M/UL (4.70-6.10); RED CELL DISTRIBUTION WIDTH 14.2 % (11.6-14.8); WHITE BLOOD COUNT 15.2 K/UL (4.8-10.8)
[2018-04-29 22:02] LABS: ANION GAP 9 mmol/L (5-15); BLOOD UREA NITROGEN 20 mg/dL (7-18); CALCIUM 9.7 MG/DL (8.5-10.1); CARBON DIOXIDE 28 MMOL/L (21-32); CHLORIDE 91 MMOL/L (98-107); CREATININE 0.8 MG/DL (0.55-1.30); POTASSIUM 4.2 MMOL/L (3.5-5.1); SODIUM 128 MMOL/L (136-145)
[2018-04-29 22:12] LABS: ALANINE AMINOTRANSFERASE 27 U/L (12-78); ALBUMIN 3.3 G/DL (3.4-5.0); ALBUMIN/GLOBULIN RATIO 0.6 (1.0-2.7); ALKALINE PHOSPHATASE 125 U/L (46-116); ASPARTATE AMINO TRANSFERASE 25 U/L (15-37); BILIRUBIN,TOTAL 0.4 MG/DL (0.2-1.0); CREATINE KINASE 116 U/L (26-308)
[2018-04-29] MEDS ORDERED: Acetaminophen 650 MG SUPP RECTAL ONE (22:15)
[2018-04-29 22:39] LABS: APPEARANCE,URINE CLOUDY; BILIRUBIN, URINE NEGATIVE (NEGATIVE); GLUCOSE, URINE (UA) NEGATIVE (NEGATIVE); KETONES,URINE 1+ (NEGATIVE); LEUKOCYTE ESTERASE ,URINE 3+ (NEGATIVE); NITRITE,URINE NEGATIVE (NEGATIVE); PH,URINE 6.5 (4.5-8.0); PROTEIN,URINE 3+ (NEGATIVE); UROBILINOGEN,URINE 1 MG/DL (0.0-1.0)
[2018-04-29 22:52] LABS: COLOR,URINE BROWN
[2018-04-30] MEDS ORDERED: ZINC SULFATE220 M1 GT (01:37)
[2018-04-30] MEDS ORDERED: MULTI-DELYN237 ML GT (01:37)
[2018-04-30] MEDS ORDERED: UTI-STAT L3875 MG/31 GT (01:37)
[2018-04-30] MEDS ORDERED: PROPRANOLOL HCL10 MG GT (01:37)
[2018-04-30] MEDS ORDERED: VITAMIN C500 M1 GT (01:37)
[2018-04-30] MEDS ORDERED: MILK OF MA400 MG/51 GT (01:37)
[2018-04-30] MEDS ORDERED: TYLENOL325 MG GT (01:37)
[2018-04-30] MEDS ORDERED: ALBUTEROL2.5 MG/3 M INH (01:37)
[2018-04-30] MEDS ORDERED: COLACE100 MG/10 GT (01:37)
[2018-04-30 04:00] VITALS: BP 102/62
[2018-04-30] MEDS ORDERED: Morphine Sulfate 2mg/ml Inj IVP PRN (04:15)
[2018-04-30 08:00] VITALS: BP 101/62
[2018-04-30 08:11] LABS: BASOPHILS % (AUTO) 0.8 % (0.0-2.0); EOSINOPHILS % (AUTO) 0.3 % (0.0-3.0); HEMATOCRIT 30.1 % (42.0-52.0); HEMOGLOBIN 9.7 G/DL (14.2-18.0); LYMPHOCYTES % (AUTO) 26.4 % (20.0-45.0); MEAN CORPUSCULAR VOLUME 88 FL (80-99); MONOCYTES % (AUTO) 9.9 % (1.0-10.0); NEUTROPHILS % (AUTO) 62.6 % (45.0-75.0); PLATELET COUNT 540 K/UL (150-450); RED BLOOD COUNT 3.41 M/UL (4.70-6.10); WHITE BLOOD COUNT 9.5 K/UL (4.8-10.8)
[2018-04-30 08:19] LABS: ANION GAP 7 mmol/L (5-15); BLOOD UREA NITROGEN 11 mg/dL (7-18); CALCIUM 9.2 MG/DL (8.5-10.1); CARBON DIOXIDE 28 MMOL/L (21-32); CHLORIDE 99 MMOL/L (98-107); CREATININE 0.6 MG/DL (0.55-1.30); POTASSIUM 4.2 MMOL/L (3.5-5.1); SODIUM 134 MMOL/L (136-145)
--- NOTE | 2018-04-30 08:57 | Diagnostic Imaging Report ---
Indication: Chest pain Technique: One view of the chest Comparison: 03/20/2018 Findings: Right-sided ventriculoperitoneal shunt tubing is again demonstrated. Low lung volumes again demonstrated. No definite acute infiltrates, effusions, or congestion demonstrated. The heart size is normal. Tracheostomy again demonstrated.. Previously demonstrated PICC is no longer evident. Old healed left clavicular fracture deformity again demonstrated. Impression: No definite acute process
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
--- NOTE | 2018-04-30 11:10 | Consultation ---
History of Present Illness General Date patient seen: Apr 30, 2018 Chief Complaint: Dyspnea/Respdistress Reason for Consultation: wound care and management Present Illness HPI 48 year old male with extensive medical and trauma history who is trach/peg dependant presents for evaluation of fevers. Patient retirement resident who after multiple trauma and brain injury is currently trach and peg dependant unable to speak and with minimal activity. Upon admission noted to have multiple wounds including bilateral lower extremity. Surgery called to evaluate and assist with care and management. patient seen, chart reviewed, patient examined. patient unable to provide history. Allergies: Coded Allergies: No Known Allergies (Unverified , 03/20/18) Medication History Scheduled Ascorbic Acid* (Vitamin C*), 500 MG GT DAILY, (Reported) Baclofen* (Baclofen*), 5 MG GT BID, (Reported) Cran/Vitc/Mannose/Inulin/Brom (Uti-Stat Liquid), 3,875 MG GT BID, (Reported) Docusate Sodium (Docusate Sodium), 100 MG GT DAILY, (Reported) Levetiracetam (Keppra), 1,000 MG GT EVERY 12 HOURS, (Reported) Multivitamin Liquid* (Multi-Delyn*), 5 ML GT DAILY, (Reported) Propranolol Hcl* (Inderal*), 10 MG GT DAILY, (Reported) Pyridoxine Hcl* (Vitamin B-6*), 50 MG GT DAILY, (Reported) Valproic Acid (Valproic Acid), 250 MG GT BID, (Reported) Zinc Sulfate (Zinc Sulfate*), 220 MG GT DAILY, (Reported) Scheduled PRN Acetaminophen (Tylenol), 650 MG GT Q6H PRN for Mild Pain/Temp > 100.5, (Reported ) Albuterol Sulfate* (Albuterol Sulfate Hhn*), 3 ML INH Q6H PRN for Shortness of Breath, (Reported) Magnesium Hydroxide* (Milk Of Magnesia*), 30 ML GT QHS PRN for Constipation, ( Reported) Patient History Limited by: medical condition History Provided By: Medical Record, PMD Healthcare decision maker Gail Lechuga Resuscitation status Do Not Resuscitate Advanced Directive on File No Past Medical/Surgical History Past Medical/Surgical History: (1) Catheter-associated urinary tract infection (2) Dry gangrene (3) Conjunctivitis of both eyes (4) Paraplegia (5) Injury brain, traumatic (6) Chronic hepatitis C without mention of hepatic coma (7) Pneumonia (8) Dyspnea (9) Respiratory distress (10) Tracheostomy care (11) Feeding by G-tube (12) Sepsis (13) Chronic respiratory failure Review of Systems ROS Narrative cannot obtain given medical condition Physical Exam General Appearance: no apparent distress Lines, tubes and drains: trach, other HEENT: mucous membranes moist Neck: trach Respiratory/Chest: other - decreased breath sounds to t tube Cardiovascular/Chest: normal rate, tachycardia Abdomen: soft, feeding tube Extremities: other Skin Exam: other Neurologic: unresponsiveness Last 24 Hour Vital Signs Date Time Temp Pulse Resp B/P (MAP) Pulse Ox O2 Delivery O2 Flow Rate FiO2 04/30/18 08:00 6.0 28 04/30/18 08:00 T-piece 6.0 T-piece 6.0 04/30/18 08:00 98.2 102 24 101/62 (75) 100 04/30/18 07:30 107 04/30/18 07:06 T-piece 6.0 28 04/30/18 07:05 100 T-piece 6.0 28 04/30/18 04:00 98.2 111 26 102/62 (75) 97 04/30/18 04:00 6.0 28 04/30/18 04:00 117 04/30/18 04:00 T-piece 6.0 T-piece 6.0 04/30/18 02:49 97.5 142 20 101/54 Room Air 04/30/18 02:39 131 24 T-piece 6.0 28 04/30/18 01:30 101.0 04/30/18 01:25 97 T-piece 6.0 28 04/30/18 01:25 T-piece 6.0 28 04/30/18 01:24 131 24 T-piece 6.0 28 04/30/18 01:07 T-piece 04/30/18 01:00 138 04/29/18 20:47 102.7 158 21 126/74 100 Trach Collar 10.0 Intake and Output 04/29/18 04/30/18 19:00 07:00 Intake Total 1480 ml Output Total 750 ml Balance 730 ml Intake Oral 0 ml IV Total 1480 ml Output Urine Total 750 ml Laboratory Tests Test 04/29/18 20:53 04/29/18 21:35 04/29/18 21:46 04/29/18 22:30 Arterial Blood pH 7.454 (7.350-7.450) Arterial Blood Partial Pressure CO2 35.4 mmHg (35.0-45.0) Arterial Blood Partial Pressure O2 95.9 mmHg (75.0-100.0) Arterial Blood HCO3 24.3 mmol/L (22.0-26.0) Arterial Blood Oxygen Saturation 97.0 % (95-100) Arterial Blood Base Excess 0.6 (-2-2) [place]bin Test Positive White Blood Count 15.2 K/UL (4.8-10.8) H Red Blood Count 3.78 M/UL (4.70-6.10) L Hemoglobin 11.3 G/DL (14.2-18.0) L Hematocrit 33.7 % (42.0-52.0) L Mean Corpuscular Volume 89 FL (80-99) Mean Corpuscular Hemoglobin 29.9 PG (27.0-31.0) Mean Corpuscular Hemoglobin Concent 33.5 G/DL (32.0-36.0) Red Cell Distribution Width 14.2 % (11.6-14.8) Platelet Count 797 K/UL (150-450) H Mean Platelet Volume 5.1 FL (6.5-10.1) L Neutrophils (%) (Auto) 84.3 % (45.0-75.0) H Lymphocytes (%) (Auto) 10.3 % (20.0-45.0) L Monocytes (%) (Auto) 4.8 % (1.0-10.0) Eosinophils (%) (Auto) 0.2 % (0.0-3.0) Basophils (%) (Auto) 0.5 % (0.0-2.0) Sodium Level 128 MMOL/L (136-145) L Potassium Level 4.2 MMOL/L (3.5-5.1) Chloride Level 91 MMOL/L (98-107) L Carbon Dioxide Level 28 MMOL/L (21-32) Anion Gap 9 mmol/L (5-15) Blood Urea Nitrogen 20 mg/dL (7-18) H Creatinine 0.8 MG/DL (0.55-1.30) Estimat Glomerular Filtration Rate > 60 mL/min (>60) Glucose Level 117 MG/DL (74-106) H Calcium Level 9.7 MG/DL (8.5-10.1) Total Bilirubin 0.4 MG/DL (0.2-1.0) Aspartate Amino Transf (AST/SGOT) 25 U/L (15-37) Alanine Aminotransferase (ALT/SGPT) 27 U/L (12-78) Alkaline Phosphatase 125 U/L (46-116) H Total Creatine Kinase 116 U/L (26-308) Troponin I 0.000 ng/mL (0.000-0.056) Pro-B-Type Natriuretic Peptide 327 pg/mL (0-125) H Total Protein 9.1 G/DL (6.4-8.2) H Albumin 3.3 G/DL (3.4-5.0) L Globulin 5.8 g/dL Albumin/Globulin Ratio 0.6 (1.0-2.7) L Lactic Acid Level 2.30 mmol/L (0.4-2.0) H Urine Color Brown Urine Appearance Cloudy Urine pH 6.5 (4.5-8.0) Urine Specific [place] 1.010 (1.005-1.035) Urine Protein 3+ (NEGATIVE) H Urine Glucose (UA) Negative (NEGATIVE) Urine Ketones 1+ (NEGATIVE) H Urine Blood 5+ (NEGATIVE) H Urine Nitrite Negative (NEGATIVE) Urine Bilirubin Negative (NEGATIVE) Urine Urobilinogen 1 MG/DL (0.0-1.0) H Urine Leukocyte Esterase 3+ (NEGATIVE) H Urine RBC Tntc /HPF (0 - 0) H Urine WBC 20-30 /HPF (0 - 0) H Urine Squamous Epithelial Cells None /LPF (NONE/OCC) Urine Bacteria Moderate /HPF (NONE) H Test 04/29/18 23:55 04/30/18 07:50 Lactic Acid Level 1.20 mmol/L (0.66-2.22) 1.40 mmol/L (0.4-2.0) White Blood Count 9.5 K/UL (4.8-10.8) Red Blood Count 3.41 M/UL (4.70-6.10) L Hemoglobin 9.7 G/DL (14.2-18.0) L Hematocrit 30.1 % (42.0-52.0) L Mean Corpuscular Volume 88 FL (80-99) Mean Corpuscular Hemoglobin 28.5 PG (27.0-31.0) Mean Corpuscular Hemoglobin Concent 32.3 G/DL (32.0-36.0) Red Cell Distribution Width 14.0 % (11.6-14.8) Platelet Count 540 K/UL (150-450) H Mean Platelet Volume 5.0 FL (6.5-10.1) L Neutrophils (%) (Auto) 62.6 % (45.0-75.0) Lymphocytes (%) (Auto) 26.4 % (20.0-45.0) Monocytes (%) (Auto) 9.9 % (1.0-10.0) Eosinophils (%) (Auto) 0.3 % (0.0-3.0) Basophils (%) (Auto) 0.8 % (0.0-2.0) Sodium Level 134 MMOL/L (136-145) L Potassium Level 4.2 MMOL/L (3.5-5.1) Chloride Level 99 MMOL/L (98-107) Carbon Dioxide Level 28 MMOL/L (21-32) Anion Gap 7 mmol/L (5-15) Blood Urea Nitrogen 11 mg/dL (7-18) Creatinine 0.6 MG/DL (0.55-1.30) Estimat Glomerular Filtration Rate > 60 mL/min (>60) Glucose Level 96 MG/DL (74-106) Calcium Level 9.2 MG/DL (8.5-10.1) Microbiology Date/Time Source Procedure Growth Status 04/30/18 00:50 Rectum Received Height (Feet): 5 Height (Inches): 6.00 Weight (Pounds): 161 Medications Current Medications Medications (Trade) Dose Ordered Sig/Jhonny Route PRN Reason Start Time Stop Time Status Last Admin Dose Admin Morphine Sulfate (Morphine Sulfate) 2 mg Q4H PRN IVP For Pain 04/30/18 04:15 05/07/18 04:14 Assessment/Plan Problem List: (1) Sepsis ICD Codes: A41.9 - Sepsis, unspecified organism SNOMED: [id number] Qualifiers: Qualified Codes: A41.9 - Sepsis, unspecified organism (2) Dry gangrene Assessment & Plan: patient presents with multiple DTI bilateral heel DTI left distal great toe DTI with likely prior debridement currently with dry gangrene at tip right distal great toe DTI with dry gangrene at lateral edge resolved sacral wound now with scar tissue lower extremity contraction all wounds present upon admission and will be cared for during hospital stay no acute surgical intervention necessary and unlikely etiology of sepsis skin protectant to bilateral heels and great toe DTI. wash with NS, apply skin protectant, apply foam dressings foam sacral dressing protective air pressure release mattress heel protectors turn q2h thank you. will follow with recs. ICD Codes: I96 - Gangrene, not elsewhere classified SNOMED: [id number], [id number] Panda Nur Apr 30, 2018 11:10
--- NOTE | 2018-04-30 11:28 | Consultation ---
Consult Note Consult Note # [id number] Roosevelt Echeverria MD Apr 30, 2018 11:28
[2018-04-30 12:00] VITALS: BP 123/75
[2018-04-30] MEDS ORDERED: Milk of Magnesia 30ml Ud GT PRN (14:30)
[2018-04-30] MEDS ORDERED: Albuterol ud Inhalation HHN PRN (14:34)
[2018-04-30] MEDS: Propranolol 10mg tab GT SCH (14:42)
[2018-04-30 16:00] VITALS: BP 123/80
[2018-04-30] MEDS: Acetaminophen 650mg/20.3ml GT PRN ×2 (16:48→17:38)
[2018-04-30 20:00] VITALS: BP 122/73
--- NOTE | 2018-04-30 20:45 | History and Physical Report ---
DATE OF ADMISSION: 04/29/2018 TIME: 2 p.m. CONSULTANTS: 1. Roosevelt Echeverria M.D. 2. Addie Lepe M.D. 3. Panda Nur M.D. CHIEF COMPLAINT: Respiratory failure, pneumonia, sepsis, and gangrene toe. BRIEF HISTORY: This is a 48-year-old male from [facility], presented with the above-mentioned diagnosis, admitted to [facility] for further care due to history of respiratory failure, trach, and vent. Currently, lethargic, trach, vent, altered, and nonverbal. PAST MEDICAL HISTORY: Includes hypertension, gangrene toe, and respiratory failure. PAST SURGICAL HISTORY: G-tube and trach. MEDICATIONS: Include vancomycin, IV fluid, cefepime, levofloxacin, Tylenol, and morphine. ALLERGY: Denies. SOCIAL HISTORY: Unable to obtain due to the patient's condition. REVIEW OF SYSTEMS: Unavailable. PHYSICAL EXAMINATION: GENERAL: Trach, vent, altered, lethargic in bed, and nonverbal. VITAL SIGNS: Temperature is 98 degrees, pulse 107, respirations 22, and blood pressure 123/75. CARDIOVASCULAR: No murmur. LUNGS: Poor air exchange. ABDOMEN: Bowel sounds positive. Nontender. Nondistended. EXTREMITIES: No cyanosis, clubbing, or edema. NEUROLOGIC: The patient is flaccid in bed, not following directions. LABORATORY AND DIAGNOSTIC DATA: Initially, white count 15 and now is 9.5, hemoglobin and hematocrit 9.7 and 30, and platelets 540,000. BMP shows sodium 134, otherwise BMP is normal. Urinalysis, 3+ leukocyte esterase. ASSESSMENT: 1. Respiratory failure. 2. Urinary tract infection. 3. Pneumonia. 4. Sepsis. 5. Anemia. 6. G-tube. 7. Hypertension. 8. Gangrene toe. PLAN: 1. Continue previous medications. 2. Vent per Pulmonary. 3. Antibiotic per Infectious Disease. 4. Wound care. 5. Blood pressure and pain control. 6. Dietary followup. 7. CBC and BMP in the morning. Marcellus Pa D.O. DR: LÓPEZ JOB#: [id number] CC:
[2018-04-30] MEDS: Valproic Acid 250mg/5ml Liquid GT SCH (21:47)
[2018-04-30] MEDS: levETIRAcetam 500mg/5ml Liquid GT SCH (21:48)
[2018-04-30] MEDS: Heparin 5000 units/ml inj SUBQ SCH (21:49)
[2018-05-01] VITALS: BP 117/68
--- NOTE | 2018-05-01 | Consultation ---
DATE OF CONSULTATION: 04/30/2018 INFECTIOUS DISEASES CONSULTATION CONSULTING PHYSICIAN: Roosevelt Echeverria M.D. REFERRING PHYSICIAN: Marcellus Pa D.O. REASON FOR CONSULTATION: Evaluation of the patient for sepsis, pneumonia, antibiotic management. HISTORY OF PRESENT ILLNESS: The patient is a 48-year-old male with multiple medical problems, who has been admitted to this medical center with sepsis, probable pneumonia, fever. The patient has been admitted here for further care. Infectious Disease consultation has been requested for further evaluation of the patient and antibiotic management. The patient is not able to provide information. Much of the information was gathered from the chart and speaking to the staff. PAST MEDICAL HISTORY: 1. Anoxic brain damage. 2. Quadriplegia. 3. Seizure disorder. 4. Hypertension. 5. Status post trach and PEG. 6. History of chronic hepatitis C. ALLERGIES: No known drug allergies. SOCIAL HISTORY: The patient lives in [place]. FAMILY HISTORY: Unavailable. REVIEW OF SYSTEMS: Unobtainable. MEDICATIONS: The patient received one dose of vancomycin and cefepime. PHYSICAL EXAMINATION: VITAL SIGNS: Temperature 100.8, T-max 102, pulse 86, respiratory rate 18, and blood pressure 122/73. HEENT: No pale conjunctivae. No icterus. NECK: No lymphadenopathy. CHEST: Coarse breathing sounds. HEART: S1 and S2. ABDOMEN: Soft. PEG tube in place. NEUROLOGIC: Nonverbal. SKIN: Stage I to II decubitus in the sacrum. LABORATORY AND DIAGNOSTIC DATA: White blood cell count on admission 15 and today it is 9.5, hemoglobin 9.7, platelets 540,000. UA, 20-30 white blood cells, 15-20 red blood cells. BUN 11, creatinine 0.6. Chest x-ray, NAPD. Echo, ejection fraction within normal range. ASSESSMENT: 1. Fever. 2. Probable UTI. 3. Probable pneumonia (healthcare-associated pneumonia) (despite of unremarkable chest x-ray). 4. Rule out probable bacteremia. PLAN: 1. We will continue the patient on vancomycin and cefepime. 2. Monitor CBC. 3. Monitor BMP. 4. Monitor cultures (blood, urine, and sputum). 5. Monitor chest x-ray. 6. Based on the patient's clinical course and laboratories, we will do further recommendation. Thank you, Dr. Marcellus Pa, for allowing me to participate in the care of this patient. I will follow the patient with you during this hospitalization. Roosevelt Echeverria M.D. DR: Eufemia JOB#: [id number] CC:
[2018-05-01] MEDS: Vancomycin 1 GM in NS 275 ML IVPB SCH ×3 (00:03→15:03)
[2018-05-01 04:00] VITALS: BP 125/65
[2018-05-01 05:15] LABS: BASOPHILS % (AUTO) 0.6 % (0.0-2.0); EOSINOPHILS % (AUTO) 1.1 % (0.0-3.0); HEMATOCRIT 28.9 % (42.0-52.0); HEMOGLOBIN 9.7 G/DL (14.2-18.0); MEAN CORPUSCULAR VOLUME 88 FL (80-99); MONOCYTES % (AUTO) 7.1 % (1.0-10.0); NEUTROPHILS % (AUTO) 58.2 % (45.0-75.0); PLATELET COUNT 501 K/UL (150-450); RED BLOOD COUNT 3.29 M/UL (4.70-6.10); RED CELL DISTRIBUTION WIDTH 14.4 % (11.6-14.8); WHITE BLOOD COUNT 7.4 K/UL (4.8-10.8)
[2018-05-01 05:32] LABS: ANION GAP 7 mmol/L (5-15); BLOOD UREA NITROGEN 5 mg/dL (7-18); CALCIUM 9.2 MG/DL (8.5-10.1); CARBON DIOXIDE 28 MMOL/L (21-32); CHLORIDE 98 MMOL/L (98-107); CREATININE 0.4 MG/DL (0.55-1.30); POTASSIUM 3.3 MMOL/L (3.5-5.1); SODIUM 133 MMOL/L (136-145)
[2018-05-01] MEDS: Acetaminophen 650mg/20.3ml GT PRN (06:25)
[2018-05-01 07:56] VITALS: BP 102/65
[2018-05-01] MEDS: Valproic Acid 250mg/5ml Liquid GT SCH ×2 (08:39→20:50)
[2018-05-01] MEDS: levETIRAcetam 500mg/5ml Liquid GT SCH ×2 (08:40→20:50)
[2018-05-01] MEDS: Propranolol 10mg tab GT SCH (08:41)
[2018-05-01] MEDS: Heparin 5000 units/ml inj SUBQ SCH ×2 (08:47→20:51)
[2018-05-01] MEDS: Cefepime HCl 2 GM in D5W 55 ML IVPB SCH ×2 (09:12→20:50)
--- NOTE | 2018-05-01 10:07 | Pulmonology Progress Note ---
Assessment/Plan Problems: (1) Sepsis (2) Chronic respiratory failure (3) Tracheostomy care (4) Paraplegia (5) Injury brain, traumatic (6) Feeding by G-tube (7) Chronic hepatitis C without mention of hepatic coma Assessment/Plan still has fevers rectal tube is inplace, lots of diarrhea butt cultures iv abx gtube feeding nutrition evaluation dvt prophylaxis check electrolytes Subjective ROS Limited/Unobtainable: Yes Constitutional: Reports: no symptoms HEENT: Repors: no symptoms Respiratory: Reports: no symptoms Allergies: Coded Allergies: No Known Allergies (Unverified , 03/20/18) Objective Last 24 Hour Vital Signs Date Time Temp Pulse Resp B/P (MAP) Pulse Ox O2 Delivery O2 Flow Rate FiO2 05/01/18 08:41 99 102/65 05/01/18 08:00 T-piece 6.0 T-piece 6.0 05/01/18 07:56 101.9 99 16 102/65 (77) 95 05/01/18 06:55 100 T-piece 6.0 28 05/01/18 06:55 T-piece 6.0 28 05/01/18 04:00 106 05/01/18 04:00 89 05/01/18 04:00 98.6 87 16 125/65 (85) 100 05/01/18 04:00 T-piece 6.0 T-piece 6.0 05/01/18 04:00 6.0 28 05/01/18 00:50 100 T-piece 6.0 28 05/01/18 00:50 T-piece 6.0 28 05/01/18 00:00 91 05/01/18 00:00 T-piece 6.0 T-piece 6.0 05/01/18 00:00 6.0 28 05/01/18 00:00 98.2 90 20 117/68 (84) 100 04/30/18 20:00 6.0 28 04/30/18 20:00 99.3 95 20 122/73 (89) 99 04/30/18 20:00 T-piece 6.0 T-piece 6.0 04/30/18 20:00 95 04/30/18 19:12 T-piece 6.0 28 04/30/18 19:12 98 T-piece 6.0 28 04/30/18 16:00 100.8 96 22 123/80 (94) 100 04/30/18 16:00 T-piece 6.0 T-piece 6.0 04/30/18 16:00 6.0 28 04/30/18 15:48 100 04/30/18 14:42 118 125/68 04/30/18 13:58 T-piece 6.0 28 04/30/18 13:55 99 T-piece 6.0 28 04/30/18 12:00 98.0 107 22 123/75 (91) 100 04/30/18 12:00 T-piece 6.0 T-piece 6.0 04/30/18 12:00 6.0 28 04/30/18 11:33 108 Intake and Output 04/30/18 05/01/18 19:00 07:00 Intake Total 350 ml 805 ml Output Total 550 ml 700 ml Balance -200 ml 105 ml Free Water 100 ml 110 ml IV Total 275 ml Tube Feeding 200 ml 380 ml Other 50 ml 40 ml Output Urine Total 550 ml 600 ml Stool Total 100 ml # Bowel Movements 2 General Appearance: WD/WN HEENT: normocephalic, atraumatic Respiratory/Chest: chest wall non-tender, lungs clear Cardiovascular: normal peripheral pulses, normal rate Abdomen: normal bowel sounds, soft, non tender Extremities: no cyanosis Skin: no rash, no ulcers Microbiology Date/Time Source Procedure Growth Status 04/29/18 21:38 Blood Blood Culture - Preliminary NO GROWTH AFTER 24 HOURS Resulted 04/29/18 21:35 Blood Blood Culture - Preliminary NO GROWTH AFTER 24 HOURS Resulted 04/29/18 22:30 Urine,Clean Catch Urine Culture - Preliminary Gram Negative Bacillus 1 Resulted 04/30/18 00:50 Rectum Received Laboratory Tests 05/01/18 04:00: White Blood Count 7.4, Red Blood Count 3.29L, Hemoglobin 9.7L, Hematocrit 28.9L , Mean Corpuscular Volume 88, Mean Corpuscular Hemoglobin 29.4, Mean Corpuscular Hemoglobin Concent 33.4, Red Cell Distribution Width 14.4, Platelet Count 501H, Mean Platelet Volume 5.3L, Neutrophils (%) (Auto) 58.2, Lymphocytes (%) (Auto) 33.0, Monocytes (%) (Auto) 7.1, Eosinophils (%) (Auto) 1.1, Basophils (%) (Auto) 0.6, Sodium Level 133L, Potassium Level 3.3L, Chloride Level 98, Carbon Dioxide Level 28, Anion Gap 7, Blood Urea Nitrogen 5L, Creatinine 0.4L, Estimat Glomerular Filtration Rate > 60, Glucose Level 114H, Calcium Level 9.2 Current Medications Medications (Trade) Dose Ordered Sig/Jhonny Route PRN Reason Start Time Stop Time Status Last Admin Dose Admin Acetaminophen (Tylenol) 650 mg Q6H PRN GT Prn Headache/Temp > 101 04/30/18 14:30 05/30/18 14:29 05/01/18 06:25 Albuterol Sulfate (Proventil) 2.5 mg Q6H PRN HHN Shortness of Breath 04/30/18 14:34 05/05/18 14:33 Baclofen (Lioresal) 5 mg EVERY 12 HOURS GT 04/30/18 21:00 05/30/18 20:59 05/01/18 08:40 Cefepime HCl 2 gm/ Dextrose 55 ml @ 110 mls/hr EVERY 12 HOURS IVPB 05/01/18 09:00 05/08/18 08:59 05/01/18 09:12 Famotidine (Pepcid) 20 mg EVERY 12 HOURS GT 04/30/18 21:00 05/30/18 20:59 05/01/18 08:40 Heparin Sodium (Porcine) (Heparin 5000 units/ml) 5,000 units EVERY 12 HOURS SUBQ 04/30/18 21:00 05/30/18 20:59 05/01/18 08:47 Levetiracetam (Keppra) 1,000 mg EVERY 12 HOURS GT 04/30/18 21:00 05/30/18 20:59 05/01/18 08:40 Magnesium Hydroxide (Mom) 30 ml QHS PRN GT Constipation 04/30/18 14:30 05/30/18 14:29 Morphine Sulfate (Morphine Sulfate) 2 mg Q4H PRN IVP For Pain 04/30/18 04:15 05/07/18 04:14 Propranolol HCl (Inderal) 10 mg DAILY GT 04/30/18 14:21 05/30/18 14:20 04/30/18 14:42 Valproic Acid (Depakene) 250 mg EVERY 12 HOURS GT 04/30/18 21:00 05/30/18 20:59 05/01/18 08:39 Vancomycin HCl (Vanco rx to dose) 1 ea DAILY PRN MISC Per rx protocol 04/30/18 22:15 05/30/18 22:14 Vancomycin HCl 1 gm/Sodium Chloride 275 ml @ 184 mls/hr Q8H IVPB 05/01/18 00:00 05/06/18 00:00 05/01/18 09:44 Addie Lepe MD May 01, 2018 10:07
--- NOTE | 2018-05-01 11:33 | General Surgery Progress Note ---
General Surgery-Progress Note Subjective Symptoms: improved Additional Comments no acute events. improving. leukocytosis resolved. Objective Last 24 Hour Vital Signs Date Time Temp Pulse Resp B/P (MAP) Pulse Ox O2 Delivery O2 Flow Rate FiO2 05/01/18 08:41 99 102/65 05/01/18 08:00 T-piece 6.0 T-piece 6.0 05/01/18 07:56 101.9 99 16 102/65 (77) 95 05/01/18 07:51 101 05/01/18 06:55 100 T-piece 6.0 28 05/01/18 06:55 T-piece 6.0 28 05/01/18 04:00 106 05/01/18 04:00 89 05/01/18 04:00 98.6 87 16 125/65 (85) 100 05/01/18 04:00 T-piece 6.0 T-piece 6.0 05/01/18 04:00 6.0 28 05/01/18 00:50 100 T-piece 6.0 28 05/01/18 00:50 T-piece 6.0 28 05/01/18 00:00 91 05/01/18 00:00 T-piece 6.0 T-piece 6.0 05/01/18 00:00 6.0 28 05/01/18 00:00 98.2 90 20 117/68 (84) 100 04/30/18 20:00 6.0 28 04/30/18 20:00 99.3 95 20 122/73 (89) 99 04/30/18 20:00 T-piece 6.0 T-piece 6.0 04/30/18 20:00 95 04/30/18 19:12 T-piece 6.0 28 04/30/18 19:12 98 T-piece 6.0 28 04/30/18 16:00 100.8 96 22 123/80 (94) 100 04/30/18 16:00 T-piece 6.0 T-piece 6.0 04/30/18 16:00 6.0 28 04/30/18 15:48 100 04/30/18 14:42 118 125/68 04/30/18 13:58 T-piece 6.0 28 04/30/18 13:55 99 T-piece 6.0 28 04/30/18 12:00 98.0 107 22 123/75 (91) 100 04/30/18 12:00 T-piece 6.0 T-piece 6.0 04/30/18 12:00 6.0 28 04/30/18 11:33 108 I&O Intake and Output 04/30/18 05/01/18 19:00 07:00 Intake Total 350 ml 805 ml Output Total 550 ml 700 ml Balance -200 ml 105 ml Free Water 100 ml 110 ml IV Total 275 ml Tube Feeding 200 ml 380 ml Other 50 ml 40 ml Output Urine Total 550 ml 600 ml Stool Total 100 ml # Bowel Movements 2 Dressing: dry Wound: clean, dry Drains: other Cardiovascular: RSR Respiratory: clear Abdomen: soft, flat, present bowel sounds Extremities: cyanosis, no edema, other Laboratory Tests Test 05/01/18 04:00 White Blood Count 7.4 K/UL (4.8-10.8) Red Blood Count 3.29 M/UL (4.70-6.10) L Hemoglobin 9.7 G/DL (14.2-18.0) L Hematocrit 28.9 % (42.0-52.0) L Mean Corpuscular Volume 88 FL (80-99) Mean Corpuscular Hemoglobin 29.4 PG (27.0-31.0) Mean Corpuscular Hemoglobin Concent 33.4 G/DL (32.0-36.0) Red Cell Distribution Width 14.4 % (11.6-14.8) Platelet Count 501 K/UL (150-450) H Mean Platelet Volume 5.3 FL (6.5-10.1) L Neutrophils (%) (Auto) 58.2 % (45.0-75.0) Lymphocytes (%) (Auto) 33.0 % (20.0-45.0) Monocytes (%) (Auto) 7.1 % (1.0-10.0) Eosinophils (%) (Auto) 1.1 % (0.0-3.0) Basophils (%) (Auto) 0.6 % (0.0-2.0) Sodium Level 133 MMOL/L (136-145) L Potassium Level 3.3 MMOL/L (3.5-5.1) L Chloride Level 98 MMOL/L (98-107) Carbon Dioxide Level 28 MMOL/L (21-32) Anion Gap 7 mmol/L (5-15) Blood Urea Nitrogen 5 mg/dL (7-18) L Creatinine 0.4 MG/DL (0.55-1.30) L Estimat Glomerular Filtration Rate > 60 mL/min (>60) Glucose Level 114 MG/DL (74-106) H Calcium Level 9.2 MG/DL (8.5-10.1) Plan Problems: (1) Sepsis Assessment & Plan: leukocytosis resolving wounds stable improving cont feeds (2) Dry gangrene Assessment & Plan: patient presents with multiple DTI bilateral heel DTI left distal great toe DTI with likely prior debridement currently with dry gangrene at tip right distal great toe DTI with dry gangrene at lateral edge resolved sacral wound now with scar tissue lower extremity contraction all wounds present upon admission and will be cared for during hospital stay no acute surgical intervention necessary and unlikely etiology of sepsis skin protectant to bilateral heels and great toe DTI. wash with NS, apply skin protectant, apply foam dressings foam sacral dressing protective air pressure release mattress heel protectors turn q2h thank you. will follow with torrie. Panda Nur May 01, 2018 11:33
[2018-05-01 11:56] VITALS: BP 107/71
--- NOTE | 2018-05-01 13:26 | General Progress Note ---
Assessment/Plan Problem List: (1) UTI (urinary tract infection) ICD Codes: N39.0 - Urinary tract infection, site not specified SNOMED: 21960154 (2) Anemia ICD Codes: D64.9 - Anemia, unspecified SNOMED: 452008998 (3) HTN (hypertension) ICD Codes: I10 - Essential (primary) hypertension SNOMED: 76510809 (4) Respiratory distress ICD Codes: R06.03 - Acute respiratory distress SNOMED: 907453659 (5) Tracheostomy care ICD Codes: Z43.0 - Encounter for attention to tracheostomy SNOMED: 794974114 (6) Sepsis ICD Codes: A41.9 - Sepsis, unspecified organism SNOMED: 00276214 Qualifiers: Qualified Codes: A41.9 - Sepsis, unspecified organism (7) Pneumonia ICD Codes: J18.9 - Pneumonia, unspecified organism SNOMED: 202270750 Qualifiers: Qualified Codes: J18.1 - Lobar pneumonia, unspecified organism (8) Chronic respiratory failure ICD Codes: J96.10 - Chronic respiratory failure, unspecified whether with hypoxia or hypercapnia SNOMED: 25405800 Status: unchanged Assessment/Plan vent abx cbc bmp am Subjective Constitutional: Reports: weakness Allergies: Coded Allergies: No Known Allergies (Unverified , 03/20/18) All Systems: reviewed and negative except above Subjective trach vent altered Objective Last 24 Hour Vital Signs Date Time Temp Pulse Resp B/P (MAP) Pulse Ox O2 Delivery O2 Flow Rate FiO2 05/01/18 12:37 99 T-piece 6.0 28 05/01/18 12:37 T-piece 6.0 28 05/01/18 12:00 T-piece 6.0 T-piece 6.0 05/01/18 12:00 92 05/01/18 11:56 98.9 102 16 107/71 (83) 98 05/01/18 08:41 99 102/65 05/01/18 08:00 T-piece 6.0 T-piece 6.0 05/01/18 07:56 101.9 99 16 102/65 (77) 95 05/01/18 07:51 101 05/01/18 06:55 100 T-piece 6.0 28 05/01/18 06:55 T-piece 6.0 28 05/01/18 04:00 106 05/01/18 04:00 89 05/01/18 04:00 98.6 87 16 125/65 (85) 100 05/01/18 04:00 T-piece 6.0 T-piece 6.0 05/01/18 04:00 6.0 28 05/01/18 00:50 100 T-piece 6.0 28 05/01/18 00:50 T-piece 6.0 28 05/01/18 00:00 91 05/01/18 00:00 T-piece 6.0 T-piece 6.0 05/01/18 00:00 6.0 28 05/01/18 00:00 98.2 90 20 117/68 (84) 100 04/30/18 20:00 6.0 28 04/30/18 20:00 99.3 95 20 122/73 (89) 99 04/30/18 20:00 T-piece 6.0 T-piece 6.0 04/30/18 20:00 95 04/30/18 19:12 T-piece 6.0 28 04/30/18 19:12 98 T-piece 6.0 28 04/30/18 16:00 100.8 96 22 123/80 (94) 100 04/30/18 16:00 T-piece 6.0 T-piece 6.0 04/30/18 16:00 6.0 28 04/30/18 15:48 100 04/30/18 14:42 118 125/68 04/30/18 13:58 T-piece 6.0 28 04/30/18 13:55 99 T-piece 6.0 28 Intake and Output 04/30/18 05/01/18 19:00 07:00 Intake Total 350 ml 805 ml Output Total 550 ml 700 ml Balance -200 ml 105 ml Free Water 100 ml 110 ml IV Total 275 ml Tube Feeding 200 ml 380 ml Other 50 ml 40 ml Output Urine Total 550 ml 600 ml Stool Total 100 ml # Bowel Movements 2 Laboratory Tests 05/01/18 04:00: White Blood Count 7.4, Red Blood Count 3.29L, Hemoglobin 9.7L, Hematocrit 28.9L , Mean Corpuscular Volume 88, Mean Corpuscular Hemoglobin 29.4, Mean Corpuscular Hemoglobin Concent 33.4, Red Cell Distribution Width 14.4, Platelet Count 501H, Mean Platelet Volume 5.3L, Neutrophils (%) (Auto) 58.2, Lymphocytes (%) (Auto) 33.0, Monocytes (%) (Auto) 7.1, Eosinophils (%) (Auto) 1.1, Basophils (%) (Auto) 0.6, Sodium Level 133L, Potassium Level 3.3L, Chloride Level 98, Carbon Dioxide Level 28, Anion Gap 7, Blood Urea Nitrogen 5L, Creatinine 0.4L, Estimat Glomerular Filtration Rate > 60, Glucose Level 114H, Calcium Level 9.2 Height (Feet): 5 Height (Inches): 6.00 Weight (Pounds): 170 General Appearance: lethargic EENT: normal ENT inspection Neck: normal alignment Cardiovascular: normal peripheral pulses, normal rate, regular rhythm Respiratory/Chest: chest wall non-tender, lungs clear, normal breath sounds Abdomen: normal bowel sounds, non tender, soft Extremities: normal inspection Edema: no edema noted Arm (L), no edema noted Arm (R), no edema noted Leg (L), no edema noted Leg (R), no edema noted Pedal (L), no edema noted Pedal (R), no edema noted Generalized Neurologic: motor weakness Skin: normal pigmentation, warm/dry Marcellus Pa DO May 01, 2018 13:26
[2018-05-01] MEDS: Albuterol/Ipratropium 3ml neb HHN SCH ×2 (13:58→18:53)
--- NOTE | 2018-05-01 15:13 | Infectious Diseases Prog Note ---
Assessment/Plan Assessment/Plan ASSESSMENT: Probable bacteremia vs contamination BCx : 1/2 GPC Fever. Probable UTI UCx : GNR. Probable pneumonia (healthcare-associated pneumonia) (despite of unremarkable chest x-ray) History of chronic hepatitis C Diarrhea ro C Diff Anoxic brain damage. Quadriplegia. Seizure disorder. Hypertension. Status post trach and PEG. PLAN: Continue the patient on vancomycin and cefepime d# 2 Monitor CBC. Monitor BMP. Monitor cultures (blood, urine, and sputum), Rpt Blood Cx Monitor chest x-ray. C diff Subjective Allergies: Coded Allergies: No Known Allergies (Unverified , 03/20/18) Subjective Febrile non verbal Diarrhea Objective Vital Signs Last 24 Hour Vital Signs Date Time Temp Pulse Resp B/P (MAP) Pulse Ox O2 Delivery O2 Flow Rate FiO2 05/01/18 13:59 89 18 98 T-piece 6.0 05/01/18 13:50 36 05/01/18 13:50 91 18 98 T-piece 6.0 05/01/18 12:37 99 T-piece 6.0 05/01/18 12:37 T-piece 6.0 05/01/18 12:00 T-piece 6.0 T-piece 6.0 05/01/18 12:00 92 05/01/18 11:56 98.9 102 16 107/71 (83) 98 05/01/18 08:41 99 102/65 05/01/18 08:00 T-piece 6.0 T-piece 6.0 05/01/18 07:56 101.9 99 16 102/65 (77) 95 05/01/18 07:51 101 05/01/18 06:55 100 T-piece 6.0 05/01/18 06:55 T-piece 6.0 05/01/18 04:00 106 05/01/18 04:00 89 05/01/18 04:00 98.6 87 16 125/65 (85) 100 05/01/18 04:00 T-piece 6.0 T-piece 6.0 05/01/18 04:00 6.0 28 05/01/18 00:50 100 T-piece 6.0 28 05/01/18 00:50 T-piece 6.0 28 05/01/18 00:00 91 05/01/18 00:00 T-piece 6.0 T-piece 6.0 05/01/18 00:00 6.0 28 05/01/18 00:00 98.2 90 20 117/68 (84) 100 04/30/18 20:00 6.0 28 04/30/18 20:00 99.3 95 20 122/73 (89) 99 04/30/18 20:00 T-piece 6.0 T-piece 6.0 04/30/18 20:00 95 04/30/18 19:12 T-piece 6.0 28 04/30/18 19:12 98 T-piece 6.0 28 04/30/18 16:00 100.8 96 22 123/80 (94) 100 04/30/18 16:00 T-piece 6.0 T-piece 6.0 04/30/18 16:00 6.0 28 04/30/18 15:48 100 Height (Feet): 5 Height (Inches): 6.00 Weight (Pounds): 170 HEENT: atraumatic Respiratory/Chest: no respiratory distress Cardiovascular: regular rhythm Abdomen: non distended Microbiology Date/Time Source Procedure Growth Status 04/29/18 21:38 Blood Blood Culture - Preliminary Resulted 04/29/18 21:35 Blood Blood Culture - Preliminary NO GROWTH AFTER 24 HOURS Resulted 04/30/18 12:45 Sputum Induced Gram Stain - Final Resulted 04/30/18 12:45 Sputum Induced Sputum Culture Pending Resulted 04/29/18 22:30 Urine,Clean Catch Urine Culture - Preliminary Gram Negative Bacillus 1 Resulted 04/30/18 00:50 Rectum Received Laboratory Tests Test 05/01/18 04:00 White Blood Count 7.4 K/UL (4.8-10.8) Red Blood Count 3.29 M/UL (4.70-6.10) L Hemoglobin 9.7 G/DL (14.2-18.0) L Hematocrit 28.9 % (42.0-52.0) L Mean Corpuscular Volume 88 FL (80-99) Mean Corpuscular Hemoglobin 29.4 PG (27.0-31.0) Mean Corpuscular Hemoglobin Concent 33.4 G/DL (32.0-36.0) Red Cell Distribution Width 14.4 % (11.6-14.8) Platelet Count 501 K/UL (150-450) H Mean Platelet Volume 5.3 FL (6.5-10.1) L Neutrophils (%) (Auto) 58.2 % (45.0-75.0) Lymphocytes (%) (Auto) 33.0 % (20.0-45.0) Monocytes (%) (Auto) 7.1 % (1.0-10.0) Eosinophils (%) (Auto) 1.1 % (0.0-3.0) Basophils (%) (Auto) 0.6 % (0.0-2.0) Sodium Level 133 MMOL/L (136-145) L Potassium Level 3.3 MMOL/L (3.5-5.1) L Chloride Level 98 MMOL/L (98-107) Carbon Dioxide Level 28 MMOL/L (21-32) Anion Gap 7 mmol/L (5-15) Blood Urea Nitrogen 5 mg/dL (7-18) L Creatinine 0.4 MG/DL (0.55-1.30) L Estimat Glomerular Filtration Rate > 60 mL/min (>60) Glucose Level 114 MG/DL (74-106) H Calcium Level 9.2 MG/DL (8.5-10.1) Current Medications Medications (Trade) Dose Ordered Sig/Jhonny Route PRN Reason Start Time Stop Time Status Last Admin Dose Admin Acetaminophen (Tylenol) 650 mg Q6H PRN GT Prn Headache/Temp > 101 04/30/18 14:30 05/30/18 14:29 05/01/18 06:25 Albuterol Sulfate (Proventil) 2.5 mg Q6H PRN HHN Shortness of Breath 04/30/18 14:34 05/05/18 14:33 Albuterol/ Ipratropium (Albuterol/ Ipratropium) 3 ml Q6HRT HHN 05/01/18 13:00 05/06/18 12:59 05/01/18 13:58 Baclofen (Lioresal) 5 mg EVERY 12 HOURS GT 04/30/18 21:00 05/30/18 20:59 05/01/18 08:40 Cefepime HCl 2 gm/ Dextrose 55 ml @ 110 mls/hr EVERY 12 HOURS IVPB 05/01/18 09:00 05/08/18 08:59 05/01/18 09:12 Heparin Sodium (Porcine) (Heparin 5000 units/ml) 5,000 units EVERY 12 HOURS SUBQ 04/30/18 21:00 05/30/18 20:59 05/01/18 08:47 Levetiracetam (Keppra) 1,000 mg EVERY 12 HOURS GT 04/30/18 21:00 05/30/18 20:59 05/01/18 08:40 Morphine Sulfate (Morphine Sulfate) 2 mg Q4H PRN IVP For Pain 04/30/18 04:15 05/07/18 04:14 Potassium Chloride (K-Dur) 40 meq ONCE GT 05/01/18 16:00 05/01/18 17:30 05/01/18 15:06 Propranolol HCl (Inderal) 10 mg DAILY GT 04/30/18 14:21 05/30/18 14:20 04/30/18 14:42 Valproic Acid (Depakene) 250 mg EVERY 12 HOURS GT 04/30/18 21:00 05/30/18 20:59 05/01/18 08:39 Vancomycin HCl (Vanco rx to dose) 1 ea DAILY PRN MISC Per rx protocol 04/30/18 22:15 05/30/18 22:14 Vancomycin HCl 1 gm/Sodium Chloride 275 ml @ 184 mls/hr Q8H IVPB 05/01/18 00:00 05/06/18 00:00 05/01/18 15:03 Roosevelt Echeverria MD May 01, 2018 15:13
[2018-05-01 15:55] VITALS: BP 99/65
[2018-05-01 20:00] VITALS: BP 129/79
[2018-05-02] VITALS: BP 123/71
[2018-05-02] MEDS: Albuterol/Ipratropium 3ml neb HHN SCH ×3 (00:10→12:22)
[2018-05-02] MEDS: Vancomycin 1 GM in NS 275 ML IVPB SCH ×3 (00:42→15:01)
[2018-05-02 04:00] VITALS: BP 108/63
[2018-05-02 05:09] LABS: BASOPHILS % (AUTO) 0.6 % (0.0-2.0); EOSINOPHILS % (AUTO) 1.2 % (0.0-3.0); HEMATOCRIT 31.3 % (42.0-52.0); HEMOGLOBIN 10.3 G/DL (14.2-18.0); LYMPHOCYTES % (AUTO) 36.7 % (20.0-45.0); MEAN CORPUSCULAR VOLUME 89 FL (80-99); MONOCYTES % (AUTO) 7.6 % (1.0-10.0); NEUTROPHILS % (AUTO) 53.8 % (45.0-75.0); PLATELET COUNT 517 K/UL (150-450); RED BLOOD COUNT 3.53 M/UL (4.70-6.10); RED CELL DISTRIBUTION WIDTH 13.8 % (11.6-14.8); WHITE BLOOD COUNT 6.7 K/UL (4.8-10.8)
[2018-05-02 05:36] LABS: ALANINE AMINOTRANSFERASE 23 U/L (12-78); ALBUMIN 2.6 G/DL (3.4-5.0); ALBUMIN/GLOBULIN RATIO 0.5 (1.0-2.7); ALKALINE PHOSPHATASE 90 U/L (46-116); ANION GAP 7 mmol/L (5-15); ASPARTATE AMINO TRANSFERASE 26 U/L (15-37); BILIRUBIN,TOTAL 0.2 MG/DL (0.2-1.0); BLOOD UREA NITROGEN 6 mg/dL (7-18); CALCIUM 9.2 MG/DL (8.5-10.1); CARBON DIOXIDE 28 MMOL/L (21-32); CHLORIDE 97 MMOL/L (98-107); CREATININE 0.5 MG/DL (0.55-1.30); POTASSIUM 4.2 MMOL/L (3.5-5.1); SODIUM 132 MMOL/L (136-145)
--- NOTE | 2018-05-02 07:22 | General Progress Note ---
Assessment/Plan Problem List: (1) UTI (urinary tract infection) ICD Codes: N39.0 - Urinary tract infection, site not specified SNOMED: 42496189 (2) Anemia ICD Codes: D64.9 - Anemia, unspecified SNOMED: 438019422 (3) HTN (hypertension) ICD Codes: I10 - Essential (primary) hypertension SNOMED: 01471413 (4) Respiratory distress ICD Codes: R06.03 - Acute respiratory distress SNOMED: 704816616 (5) Tracheostomy care ICD Codes: Z43.0 - Encounter for attention to tracheostomy SNOMED: 742925370 (6) Sepsis ICD Codes: A41.9 - Sepsis, unspecified organism SNOMED: 60438193 Qualifiers: Qualified Codes: A41.9 - Sepsis, unspecified organism (7) Pneumonia ICD Codes: J18.9 - Pneumonia, unspecified organism SNOMED: 777526569 Qualifiers: Qualified Codes: J18.1 - Lobar pneumonia, unspecified organism (8) Chronic respiratory failure ICD Codes: J96.10 - Chronic respiratory failure, unspecified whether with hypoxia or hypercapnia SNOMED: 19715259 Status: stable, progressing Assessment/Plan vent abx cbc bmp am Subjective Constitutional: Reports: weakness Allergies: Coded Allergies: No Known Allergies (Unverified , 03/20/18) All Systems: reviewed and negative except above Subjective trach vent altered Objective Last 24 Hour Vital Signs Date Time Temp Pulse Resp B/P (MAP) Pulse Ox O2 Delivery O2 Flow Rate FiO2 05/02/18 04:00 T-piece 6.0 T-piece 6.0 05/02/18 04:00 97.2 99 18 108/63 (78) 96 05/02/18 04:00 108 05/02/18 00:32 98 T-piece 6.0 28 05/02/18 00:32 105 18 98 T-piece 6.0 28 05/02/18 00:12 T-piece 6.0 28 05/02/18 00:12 28 05/02/18 00:11 106 18 97 T-piece 6.0 28 05/02/18 00:00 110 05/02/18 00:00 T-piece 6.0 T-piece 6.0 05/02/18 00:00 96.6 111 22 123/71 (88) 98 05/01/18 20:00 T-piece 6.0 T-piece 6.0 05/01/18 20:00 107 05/01/18 20:00 98.7 103 20 129/79 (96) 98 05/01/18 19:05 93 18 98 T-piece 6.0 05/01/18 19:05 100 18 98 T-piece 6.0 05/01/18 19:05 28 05/01/18 19:04 T-piece 6.0 05/01/18 19:04 98 T-piece 6.0 05/01/18 16:00 T-piece 6.0 T-piece 6.0 05/01/18 15:55 98.5 95 19 99/65 (76) 98 05/01/18 15:36 94 05/01/18 13:59 89 18 98 T-piece 6.0 05/01/18 13:50 36 05/01/18 13:50 91 18 98 T-piece 6.0 05/01/18 12:37 99 T-piece 6.0 05/01/18 12:37 T-piece 6.0 05/01/18 12:00 T-piece 6.0 T-piece 6.0 05/01/18 12:00 92 05/01/18 11:56 98.9 102 16 107/71 (83) 98 05/01/18 08:41 99 102/65 05/01/18 08:00 T-piece 6.0 T-piece 6.0 05/01/18 07:56 101.9 99 16 102/65 (77) 95 05/01/18 07:51 101 Intake and Output 05/01/18 05/02/18 18:59 06:59 Intake Total 1405 ml 1230.0 ml Output Total 550 ml 800 ml Balance 855 ml 430.0 ml Free Water 200 ml IV Total 605 ml 330.0 ml Tube Feeding 600 ml 600 ml Other 200 ml 100 ml Output Urine Total 400 ml 750 ml Stool Total 150 ml 50 ml Laboratory Tests 05/01/18 23:20: Vancomycin Level Trough 16.2H 05/02/18 03:30: White Blood Count 6.7, Red Blood Count 3.53L, Hemoglobin 10.3L, Hematocrit 31.3L , Mean Corpuscular Volume 89, Mean Corpuscular Hemoglobin 29.3, Mean Corpuscular Hemoglobin Concent 33.0, Red Cell Distribution Width 13.8, Platelet Count 517H, Mean Platelet Volume 4.9L, Neutrophils (%) (Auto) 53.8, Lymphocytes (%) (Auto) 36.7, Monocytes (%) (Auto) 7.6, Eosinophils (%) (Auto) 1.2, Basophils (%) (Auto) 0.6, Sodium Level 132L, Potassium Level 4.2, Chloride Level 97L, Carbon Dioxide Level 28, Anion Gap 7, Blood Urea Nitrogen 6L, Creatinine 0.5L, Estimat Glomerular Filtration Rate > 60, Glucose Level 102, Calcium Level 9.2, Total Bilirubin 0.2, Aspartate Amino Transf (AST/SGOT) 26, Alanine Aminotransferase (ALT/SGPT) 23, Alkaline Phosphatase 90, Pro-B-Type Natriuretic Peptide 1116H, Total Protein 7.5, Albumin 2.6L, Globulin 4.9, Albumin/Globulin Ratio 0.5L Height (Feet): 5 Height (Inches): 6.00 Weight (Pounds): 170 General Appearance: lethargic EENT: normal ENT inspection Neck: normal alignment Cardiovascular: normal peripheral pulses, normal rate, regular rhythm Respiratory/Chest: chest wall non-tender, lungs clear, normal breath sounds Abdomen: normal bowel sounds, non tender, soft Extremities: normal inspection Edema: no edema noted Arm (L), no edema noted Arm (R), no edema noted Leg (L), no edema noted Leg (R), no edema noted Pedal (L), no edema noted Pedal (R), no edema noted Generalized Neurologic: motor weakness Skin: normal pigmentation, warm/dry Marcellus Pa DO May 02, 2018 07:22
--- NOTE | 2018-05-02 07:52 | Infectious Diseases Prog Note ---
Assessment/Plan Assessment/Plan Probable contamination BCx : 1/2 CoNS Fever. Probable UTI UCx : Pseudomonas S cefepime. Probable pneumonia (healthcare-associated pneumonia) (despite of unremarkable chest x-ray) History of chronic hepatitis C Diarrhea ro C Diff Anoxic brain damage. Quadriplegia. Seizure disorder. Hypertension. Status post trach and PEG. PLAN: - Continue the patient on vancomycin #3 and cefepime d# 3/7 - Monitor CBC. - Monitor BMP. - Monitor cultures (blood, urine, and sputum), - f/u Rpt Blood Cx - Monitor chest x-ray. - C diff Subjective Allergies: Coded Allergies: No Known Allergies (Unverified , 03/20/18) Subjective Patient satting well on T bar 28% O2 Aferbile Objective Vital Signs Last 24 Hour Vital Signs Date Time Temp Pulse Resp B/P (MAP) Pulse Ox O2 Delivery O2 Flow Rate FiO2 05/02/18 04:00 T-piece 6.0 T-piece 6.0 05/02/18 04:00 97.2 99 18 108/63 (78) 96 05/02/18 04:00 108 05/02/18 00:32 98 T-piece 6.0 28 05/02/18 00:32 105 18 98 T-piece 6.0 28 05/02/18 00:12 T-piece 6.0 28 05/02/18 00:12 28 05/02/18 00:11 106 18 97 T-piece 6.0 28 05/02/18 00:00 110 05/02/18 00:00 T-piece 6.0 T-piece 6.0 05/02/18 00:00 96.6 111 22 123/71 (88) 98 05/01/18 20:00 T-piece 6.0 T-piece 6.0 05/01/18 20:00 107 05/01/18 20:00 98.7 103 20 129/79 (96) 98 05/01/18 19:05 93 18 98 T-piece 6.0 28 05/01/18 19:05 100 18 98 T-piece 6.0 28 05/01/18 19:05 28 05/01/18 19:04 T-piece 6.0 28 05/01/18 19:04 98 T-piece 6.0 28 05/01/18 16:00 T-piece 6.0 T-piece 6.0 05/01/18 15:55 98.5 95 19 99/65 (76) 98 05/01/18 15:36 94 05/01/18 13:59 89 18 98 T-piece 6.0 28 05/01/18 13:50 36 05/01/18 13:50 91 18 98 T-piece 6.0 28 05/01/18 12:37 99 T-piece 6.0 28 05/01/18 12:37 T-piece 6.0 28 05/01/18 12:00 T-piece 6.0 T-piece 6.0 05/01/18 12:00 92 05/01/18 11:56 98.9 102 16 107/71 (83) 98 05/01/18 08:41 99 102/65 05/01/18 08:00 T-piece 6.0 T-piece 6.0 05/01/18 07:56 101.9 99 16 102/65 (77) 95 05/01/18 07:51 101 Height (Feet): 5 Height (Inches): 6.00 Weight (Pounds): 170 Microbiology Date/Time Source Procedure Growth Status 04/29/18 21:38 Blood Blood Culture - Preliminary Staphylococcus Sp Coag Neg Resulted 04/29/18 21:35 Blood Blood Culture - Preliminary NO GROWTH AFTER 48 HOURS Resulted 04/30/18 12:45 Sputum Induced Gram Stain - Final Resulted 04/30/18 12:45 Sputum Induced Sputum Culture Pending Resulted 04/30/18 00:50 Nasal Nares MRSA Culture - Final NO METHICILLIN RESISTANT STAPH AUREUS... Complete 05/01/18 04:00 Stool Clostridium difficile Toxin Assay - Final Complete 04/29/18 22:30 Urine,Clean Catch Urine Culture - Preliminary Pseudomonas Aeruginosa Resulted 04/30/18 00:50 Rectum VRE Culture - Final Enterococcus Faecalis - Vre Complete Laboratory Tests Test 05/01/18 23:20 05/02/18 03:30 Vancomycin Level Trough 16.2 ug/mL (5.0-12.0) H White Blood Count 6.7 K/UL (4.8-10.8) Red Blood Count 3.53 M/UL (4.70-6.10) L Hemoglobin 10.3 G/DL (14.2-18.0) L Hematocrit 31.3 % (42.0-52.0) L Mean Corpuscular Volume 89 FL (80-99) Mean Corpuscular Hemoglobin 29.3 PG (27.0-31.0) Mean Corpuscular Hemoglobin Concent 33.0 G/DL (32.0-36.0) Red Cell Distribution Width 13.8 % (11.6-14.8) Platelet Count 517 K/UL (150-450) H Mean Platelet Volume 4.9 FL (6.5-10.1) L Neutrophils (%) (Auto) 53.8 % (45.0-75.0) Lymphocytes (%) (Auto) 36.7 % (20.0-45.0) Monocytes (%) (Auto) 7.6 % (1.0-10.0) Eosinophils (%) (Auto) 1.2 % (0.0-3.0) Basophils (%) (Auto) 0.6 % (0.0-2.0) Sodium Level 132 MMOL/L (136-145) L Potassium Level 4.2 MMOL/L (3.5-5.1) Chloride Level 97 MMOL/L (98-107) L Carbon Dioxide Level 28 MMOL/L (21-32) Anion Gap 7 mmol/L (5-15) Blood Urea Nitrogen 6 mg/dL (7-18) L Creatinine 0.5 MG/DL (0.55-1.30) L Estimat Glomerular Filtration Rate > 60 mL/min (>60) Glucose Level 102 MG/DL (74-106) Calcium Level 9.2 MG/DL (8.5-10.1) Total Bilirubin 0.2 MG/DL (0.2-1.0) Aspartate Amino Transf (AST/SGOT) 26 U/L (15-37) Alanine Aminotransferase (ALT/SGPT) 23 U/L (12-78) Alkaline Phosphatase 90 U/L (46-116) Pro-B-Type Natriuretic Peptide 1116 pg/mL (0-125) H Total Protein 7.5 G/DL (6.4-8.2) Albumin 2.6 G/DL (3.4-5.0) L Globulin 4.9 g/dL Albumin/Globulin Ratio 0.5 (1.0-2.7) L Current Medications Medications (Trade) Dose Ordered Sig/Jhonny Route PRN Reason Start Time Stop Time Status Last Admin Dose Admin Acetaminophen (Tylenol) 650 mg Q6H PRN GT Prn Headache/Temp > 101 04/30/18 14:30 05/30/18 14:29 05/01/18 06:25 Albuterol Sulfate (Proventil) 2.5 mg Q6H PRN HHN Shortness of Breath 04/30/18 14:34 05/05/18 14:33 Albuterol/ Ipratropium (Albuterol/ Ipratropium) 3 ml Q6HRT HHN 05/01/18 13:00 05/06/18 12:59 05/02/18 00:10 Baclofen (Lioresal) 5 mg EVERY 12 HOURS GT 04/30/18 21:00 05/30/18 20:59 05/01/18 20:50 Cefepime HCl 2 gm/ Dextrose 55 ml @ 110 mls/hr EVERY 12 HOURS IVPB 05/01/18 09:00 05/08/18 08:59 05/01/18 20:50 Heparin Sodium (Porcine) (Heparin 5000 units/ml) 5,000 units EVERY 12 HOURS SUBQ 04/30/18 21:00 05/30/18 20:59 05/01/18 20:51 Levetiracetam (Keppra) 1,000 mg EVERY 12 HOURS GT 04/30/18 21:00 05/30/18 20:59 05/01/18 20:50 Morphine Sulfate (Morphine Sulfate) 2 mg Q4H PRN IVP For Pain 04/30/18 04:15 05/07/18 04:14 Propranolol HCl (Inderal) 10 mg DAILY GT 04/30/18 14:21 05/30/18 14:20 04/30/18 14:42 Valproic Acid (Depakene) 250 mg EVERY 12 HOURS GT 04/30/18 21:00 05/30/18 20:59 05/01/18 20:50 Vancomycin HCl (Vanco rx to dose) 1 ea DAILY PRN MISC Per rx protocol 04/30/18 22:15 05/30/18 22:14 Vancomycin HCl 1 gm/Sodium Chloride 275 ml @ 184 mls/hr Q8H IVPB 05/01/18 00:00 05/06/18 00:00 05/02/18 00:42 Mohsen Oquendo MD May 02, 2018 07:52
[2018-05-02 08:00] VITALS: BP 121/82
[2018-05-02] MEDS: Valproic Acid 250mg/5ml Liquid GT SCH ×2 (08:28→20:49)
[2018-05-02] MEDS: Propranolol 10mg tab GT SCH (08:28)
[2018-05-02] MEDS: levETIRAcetam 500mg/5ml Liquid GT SCH ×2 (08:29→20:49)
[2018-05-02] MEDS: Heparin 5000 units/ml inj SUBQ SCH ×2 (08:34→20:52)
--- NOTE | 2018-05-02 09:14 | Diagnostic Imaging Report ---
EXAM: XR Chest, 1 View CLINICAL HISTORY: DYSPNEA TECHNIQUE: Frontal view of the chest. COMPARISON: No relevant prior studies available. FINDINGS: Lungs: Low lung volumes, which may be related to shallow inspiration. Increased interstitial markings. The lungs are otherwise clear without focal consolidation. Pleural space: Unremarkable. The costophrenic angles are sharp. No visible pneumothorax. Heart: Unremarkable. No cardiomegaly. Mediastinum: Unremarkable. Bones/joints: Healed left clavicular fracture deformity noted. Tubes, lines and devices: Tracheostomy tube in place with expected positioning. EKG leads overlie the thorax. Right-sided [employer] shunt catheter identified. IMPRESSION: 1. Low lung volumes, which may be related to shallow inspiration. 2. Increased interstitial markings. This is most likely related to bronchovascular crowding from the low lung volumes. Differential diagnosis also includes mild interstitial pneumonitis. No focal consolidation.
--- NOTE | 2018-05-02 09:25 | General Surgery Progress Note ---
General Surgery-Progress Note Subjective Symptoms: improved Additional Comments leukocytosis resolved. comfortable. no acute events. Objective Last 24 Hour Vital Signs Date Time Temp Pulse Resp B/P (MAP) Pulse Ox O2 Delivery O2 Flow Rate FiO2 05/02/18 08:28 103 121/82 05/02/18 08:05 103 20 98 T-piece 6.0 28 05/02/18 08:00 102 18 98 T-piece 6.0 28 05/02/18 08:00 106 05/02/18 08:00 28 05/02/18 08:00 100.6 110 21 121/82 (95) 98 05/02/18 08:00 T-piece 6.0 T-piece 6.0 05/02/18 07:22 98 T-piece 6.0 28 05/02/18 07:22 T-piece 6.0 28 05/02/18 04:00 T-piece 6.0 T-piece 6.0 05/02/18 04:00 97.2 99 18 108/63 (78) 96 05/02/18 04:00 108 05/02/18 00:32 98 T-piece 6.0 28 05/02/18 00:32 105 18 98 T-piece 6.0 28 05/02/18 00:12 T-piece 6.0 28 05/02/18 00:12 28 05/02/18 00:11 106 18 97 T-piece 6.0 28 05/02/18 00:00 110 05/02/18 00:00 T-piece 6.0 T-piece 6.0 05/02/18 00:00 96.6 111 22 123/71 (88) 98 05/01/18 20:00 T-piece 6.0 T-piece 6.0 05/01/18 20:00 107 05/01/18 20:00 98.7 103 20 129/79 (96) 98 05/01/18 19:05 93 18 98 T-piece 6.0 28 05/01/18 19:05 100 18 98 T-piece 6.0 28 05/01/18 19:05 28 05/01/18 19:04 T-piece 6.0 28 05/01/18 19:04 98 T-piece 6.0 28 05/01/18 16:00 T-piece 6.0 T-piece 6.0 05/01/18 15:55 98.5 95 19 99/65 (76) 98 05/01/18 15:36 94 05/01/18 13:59 89 18 98 T-piece 6.0 28 05/01/18 13:50 36 05/01/18 13:50 91 18 98 T-piece 6.0 28 05/01/18 12:37 99 T-piece 6.0 28 05/01/18 12:37 T-piece 6.0 28 05/01/18 12:00 T-piece 6.0 T-piece 6.0 05/01/18 12:00 92 05/01/18 11:56 98.9 102 16 107/71 (83) 98 I&O Intake and Output 05/01/18 05/02/18 18:59 06:59 Intake Total 1405 ml 1230.0 ml Output Total 550 ml 800 ml Balance 855 ml 430.0 ml Free Water 200 ml IV Total 605 ml 330.0 ml Tube Feeding 600 ml 600 ml Other 200 ml 100 ml Output Urine Total 400 ml 750 ml Stool Total 150 ml 50 ml Dressing: dry Wound: clean, other Drains: other Cardiovascular: RSR Respiratory: clear Abdomen: soft, flat, non-tender, present bowel sounds Extremities: cyanosis, no edema Laboratory Tests Test 05/01/18 23:20 05/02/18 03:30 Vancomycin Level Trough 16.2 ug/mL (5.0-12.0) H White Blood Count 6.7 K/UL (4.8-10.8) Red Blood Count 3.53 M/UL (4.70-6.10) L Hemoglobin 10.3 G/DL (14.2-18.0) L Hematocrit 31.3 % (42.0-52.0) L Mean Corpuscular Volume 89 FL (80-99) Mean Corpuscular Hemoglobin 29.3 PG (27.0-31.0) Mean Corpuscular Hemoglobin Concent 33.0 G/DL (32.0-36.0) Red Cell Distribution Width 13.8 % (11.6-14.8) Platelet Count 517 K/UL (150-450) H Mean Platelet Volume 4.9 FL (6.5-10.1) L Neutrophils (%) (Auto) 53.8 % (45.0-75.0) Lymphocytes (%) (Auto) 36.7 % (20.0-45.0) Monocytes (%) (Auto) 7.6 % (1.0-10.0) Eosinophils (%) (Auto) 1.2 % (0.0-3.0) Basophils (%) (Auto) 0.6 % (0.0-2.0) Sodium Level 132 MMOL/L (136-145) L Potassium Level 4.2 MMOL/L (3.5-5.1) Chloride Level 97 MMOL/L (98-107) L Carbon Dioxide Level 28 MMOL/L (21-32) Anion Gap 7 mmol/L (5-15) Blood Urea Nitrogen 6 mg/dL (7-18) L Creatinine 0.5 MG/DL (0.55-1.30) L Estimat Glomerular Filtration Rate > 60 mL/min (>60) Glucose Level 102 MG/DL (74-106) Calcium Level 9.2 MG/DL (8.5-10.1) Total Bilirubin 0.2 MG/DL (0.2-1.0) Aspartate Amino Transf (AST/SGOT) 26 U/L (15-37) Alanine Aminotransferase (ALT/SGPT) 23 U/L (12-78) Alkaline Phosphatase 90 U/L (46-116) Pro-B-Type Natriuretic Peptide 1116 pg/mL (0-125) H Total Protein 7.5 G/DL (6.4-8.2) Albumin 2.6 G/DL (3.4-5.0) L Globulin 4.9 g/dL Albumin/Globulin Ratio 0.5 (1.0-2.7) L Plan Problems: (1) Sepsis Assessment & Plan: leukocytosis resolving wounds stable improving cont feeds (2) Dry gangrene Assessment & Plan: patient presents with multiple DTI bilateral heel DTI left distal great toe DTI with likely prior debridement currently with dry gangrene at tip right distal great toe DTI with dry gangrene at lateral edge resolved sacral wound now with scar tissue lower extremity contraction all wounds present upon admission and will be cared for during hospital stay no acute surgical intervention necessary and unlikely etiology of sepsis skin protectant to bilateral heels and great toe DTI. wash with NS, apply skin protectant, apply foam dressings foam sacral dressing protective air pressure release mattress heel protectors turn q2h thank you. will follow with recs. Panda Nur May 02, 2018 09:25
[2018-05-02] MEDS: Cefepime HCl 2 GM in D5W 55 ML IVPB SCH ×2 (09:58→20:49)
[2018-05-02 12:00] VITALS: BP 123/79
--- NOTE | 2018-05-02 12:34 | Pulmonology Progress Note ---
Assessment/Plan Assessment/Plan Assessment/Plan Problems: (1) Sepsis (2) Chronic respiratory failure (3) Tracheostomy care (4) Paraplegia (5) Injury brain, traumatic (6) Feeding by G-tube (7) Chronic hepatitis C without mention of hepatic coma Assessment/Plan still has fevers rectal tube is inplace, lots of diarrhea butt cultures iv abx gtube feeding nutrition evaluation dvt prophylaxis check electrolytes Subjective ROS Limited/Unobtainable: Yes Constitutional: Reports: no symptoms HEENT: Repors: no symptoms Respiratory: Reports: no symptoms Allergies: Coded Allergies: No Known Allergies (Unverified , 03/20/18) Objective Vital Signs noted General Appearance: WD/WN HEENT: normocephalic, atraumatic Respiratory/Chest: chest wall non-tender, lungs clear Cardiovascular: normal peripheral pulses, normal rate Abdomen: normal bowel sounds, soft, non tender Extremities: no cyanosis Skin: no rash, no ulcers Microbiology Date/Time Source Procedure Growth Status 04/29/18 21:38 Blood Blood Culture - Preliminary NO GROWTH AFTER 24 HOURS Resulted 04/29/18 21:35 Blood Blood Culture - Preliminary NO GROWTH AFTER 24 HOURS Resulted 04/29/18 22:30 Urine,Clean Catch Urine Culture - Preliminary Gram Negative Bacillus 1 Resulted 04/30/18 00:50 Rectum Received Laboratory Tests 05/01/18 04:00: White Blood Count 7.4, Red Blood Count 3.29L, Hemoglobin 9.7L, Hematocrit 28.9L , Mean Corpuscular Volume 88, Mean Corpuscular Hemoglobin 29.4, Mean Corpuscular Hemoglobin Concent 33.4, Red Cell Distribution Width 14.4, Platelet Count 501H, Mean Platelet Volume 5.3L, Neutrophils (%) (Auto) 58.2, Lymphocytes (%) (Auto) 33.0, Monocytes (%) (Auto) 7.1, Eosinophils (%) (Auto) 1.1, Basophils (%) (Auto) 0.6, Sodium Level 133L, Potassium Level 3.3L, Chloride Level 98, Carbon Dioxide Level 28, Anion Gap 7, Blood Urea Nitrogen 5L, Creatinine 0.4L, Estimat Glomerular Filtration Rate > 60, Glucose Level 114H, Calcium Level 9.2 Current Medications Medications (Trade) Dose Ordered Sig/Jhonny Route PRN Reason Start Time Stop Time Status Last Admin Dose Admin Acetaminophen (Tylenol) 650 mg Q6H PRN GT Prn Headache/Temp > 101 04/30/18 14:30 05/30/18 14:29 05/01/18 06:25 Albuterol Sulfate (Proventil) 2.5 mg Q6H PRN HHN Shortness of Breath 04/30/18 14:34 05/05/18 14:33 Baclofen (Lioresal) 5 mg EVERY 12 HOURS GT 04/30/18 21:00 05/30/18 20:59 05/01/18 08:40 Cefepime HCl 2 gm/ Dextrose 55 ml @ 110 mls/hr EVERY 12 HOURS IVPB 05/01/18 09:00 05/08/18 08:59 05/01/18 09:12 Famotidine (Pepcid) 20 mg EVERY 12 HOURS GT 04/30/18 21:00 05/30/18 20:59 05/01/18 08:40 Heparin Sodium (Porcine) (Heparin 5000 units/ml) 5,000 units EVERY 12 HOURS SUBQ 04/30/18 21:00 05/30/18 20:59 05/01/18 08:47 Levetiracetam (Keppra) 1,000 mg EVERY 12 HOURS GT 04/30/18 21:00 05/30/18 20:59 05/01/18 08:40 Magnesium Hydroxide (Mom) 30 ml QHS PRN GT Constipation 04/30/18 14:30 05/30/18 14:29 Morphine Sulfate (Morphine Sulfate) 2 mg Q4H PRN IVP For Pain 04/30/18 04:15 05/07/18 04:14 Propranolol HCl (Inderal) 10 mg DAILY GT 04/30/18 14:21 05/30/18 14:20 04/30/18 14:42 Valproic Acid (Depakene) 250 mg EVERY 12 HOURS GT 04/30/18 21:00 05/30/18 20:59 05/01/18 08:39 Vancomycin HCl (Vanco rx to dose) 1 ea DAILY PRN MISC Per rx protocol 04/30/18 22:15 05/30/18 22:14 Vancomycin HCl 1 gm/Sodium Chloride 275 ml @ 184 mls/hr Q8H IVPB 05/01/18 00:00 05/06/18 00:00 05/01/18 09:44 Subjective ROS Limited/Unobtainable: Yes Allergies: Coded Allergies: No Known Allergies (Unverified , 03/20/18) Objective Last 24 Hour Vital Signs Date Time Temp Pulse Resp B/P (MAP) Pulse Ox O2 Delivery O2 Flow Rate FiO2 05/02/18 12:29 88 20 98 T-piece 6.0 28 05/02/18 12:21 98 T-piece 6.0 28 05/02/18 12:21 101 18 98 T-piece 6.0 28 05/02/18 12:21 28 05/02/18 12:21 T-piece 6.0 28 05/02/18 08:28 103 121/82 05/02/18 08:05 103 20 98 T-piece 6.0 28 05/02/18 08:00 102 18 98 T-piece 6.0 28 05/02/18 08:00 106 05/02/18 08:00 28 05/02/18 08:00 100.6 110 21 121/82 (95) 98 05/02/18 08:00 T-piece 6.0 T-piece 6.0 05/02/18 07:22 98 T-piece 6.0 05/02/18 07:22 T-piece 6.0 28 05/02/18 04:00 T-piece 6.0 T-piece 6.0 05/02/18 04:00 97.2 99 18 108/63 (78) 96 05/02/18 04:00 108 05/02/18 00:32 98 T-piece 6.0 05/02/18 00:32 105 18 98 T-piece 6.0 05/02/18 00:12 T-piece 6.0 28 05/02/18 00:12 28 05/02/18 00:11 106 18 97 T-piece 6.0 05/02/18 00:00 110 05/02/18 00:00 T-piece 6.0 T-piece 6.0 05/02/18 00:00 96.6 111 22 123/71 (88) 98 05/01/18 20:00 T-piece 6.0 T-piece 6.0 05/01/18 20:00 107 05/01/18 20:00 98.7 103 20 129/79 (96) 98 05/01/18 19:05 93 18 98 T-piece 6.0 28 05/01/18 19:05 100 18 98 T-piece 6.0 28 05/01/18 19:05 28 05/01/18 19:04 T-piece 6.0 28 05/01/18 19:04 98 T-piece 6.0 28 05/01/18 16:00 T-piece 6.0 T-piece 6.0 05/01/18 15:55 98.5 95 19 99/65 (76) 98 05/01/18 15:36 94 05/01/18 13:59 89 18 98 T-piece 6.0 28 05/01/18 13:50 36 05/01/18 13:50 91 18 98 T-piece 6.0 05/01/18 12:37 99 T-piece 6.0 05/01/18 12:37 T-piece 6.0 28 Intake and Output 05/01/18 05/02/18 18:59 06:59 Intake Total 1525 ml 1230.0 ml Output Total 550 ml 800 ml Balance 975 ml 430.0 ml Free Water 120 ml 200 ml IV Total 605 ml 330.0 ml Tube Feeding 600 ml 600 ml Other 200 ml 100 ml Output Urine Total 400 ml 750 ml Stool Total 150 ml 50 ml Microbiology Date/Time Source Procedure Growth Status 04/29/18 21:38 Blood Blood Culture - Preliminary Staphylococcus Sp Coag Neg Resulted 04/29/18 21:35 Blood Blood Culture - Preliminary NO GROWTH AFTER 48 HOURS Resulted 04/30/18 12:45 Sputum Induced Gram Stain - Final Resulted 04/30/18 12:45 Sputum Induced Sputum Culture Pending Resulted 04/30/18 00:50 Nasal Nares MRSA Culture - Final NO METHICILLIN RESISTANT STAPH AUREUS... Complete 05/01/18 04:00 Stool Clostridium difficile Toxin Assay - Final Complete 04/29/18 22:30 Urine,Clean Catch Urine Culture - Preliminary Pseudomonas Aeruginosa Resulted 04/30/18 00:50 Rectum VRE Culture - Final Enterococcus Faecalis - Vre Complete Laboratory Tests 05/01/18 23:20: Vancomycin Level Trough 16.2H 05/02/18 03:30: White Blood Count 6.7, Red Blood Count 3.53L, Hemoglobin 10.3L, Hematocrit 31.3L , Mean Corpuscular Volume 89, Mean Corpuscular Hemoglobin 29.3, Mean Corpuscular Hemoglobin Concent 33.0, Red Cell Distribution Width 13.8, Platelet Count 517H, Mean Platelet Volume 4.9L, Neutrophils (%) (Auto) 53.8, Lymphocytes (%) (Auto) 36.7, Monocytes (%) (Auto) 7.6, Eosinophils (%) (Auto) 1.2, Basophils (%) (Auto) 0.6, Sodium Level 132L, Potassium Level 4.2, Chloride Level 97L, Carbon Dioxide Level 28, Anion Gap 7, Blood Urea Nitrogen 6L, Creatinine 0.5L, Estimat Glomerular Filtration Rate > 60, Glucose Level 102, Calcium Level 9.2, Total Bilirubin 0.2, Aspartate Amino Transf (AST/SGOT) 26, Alanine Aminotransferase (ALT/SGPT) 23, Alkaline Phosphatase 90, Pro-B-Type Natriuretic Peptide 1116H, Total Protein 7.5, Albumin 2.6L, Globulin 4.9, Albumin/Globulin Ratio 0.5L Current Medications Medications (Trade) Dose Ordered Sig/Jhonny Route PRN Reason Start Time Stop Time Status Last Admin Dose Admin Acetaminophen (Tylenol) 650 mg Q6H PRN GT Prn Headache/Temp > 101 04/30/18 14:30 05/30/18 14:29 05/01/18 06:25 Albuterol Sulfate (Proventil) 2.5 mg Q6H PRN HHN Shortness of Breath 04/30/18 14:34 05/05/18 14:33 Albuterol/ Ipratropium (Albuterol/ Ipratropium) 3 ml Q6HRT HHN 05/01/18 13:00 05/06/18 12:59 05/02/18 12:22 Baclofen (Lioresal) 5 mg EVERY 12 HOURS GT 04/30/18 21:00 05/30/18 20:59 05/02/18 08:27 Cefepime HCl 2 gm/ Dextrose 55 ml @ 110 mls/hr EVERY 12 HOURS IVPB 05/01/18 09:00 05/08/18 08:59 05/02/18 09:58 Heparin Sodium (Porcine) (Heparin 5000 units/ml) 5,000 units EVERY 12 HOURS SUBQ 04/30/18 21:00 05/30/18 20:59 05/02/18 08:34 Levetiracetam (Keppra) 1,000 mg EVERY 12 HOURS GT 04/30/18 21:00 05/30/18 20:59 05/02/18 08:29 Morphine Sulfate (Morphine Sulfate) 2 mg Q4H PRN IVP For Pain 04/30/18 04:15 05/07/18 04:14 Propranolol HCl (Inderal) 10 mg DAILY GT 04/30/18 14:21 05/30/18 14:20 05/02/18 08:28 Valproic Acid (Depakene) 250 mg EVERY 12 HOURS GT 04/30/18 21:00 05/30/18 20:59 05/02/18 08:28 Vancomycin HCl (Vanco rx to dose) 1 ea DAILY PRN MISC Per rx protocol 04/30/18 22:15 05/30/18 22:14 Vancomycin HCl 1 gm/Sodium Chloride 275 ml @ 184 mls/hr Q8H IVPB 05/01/18 00:00 05/06/18 00:00 05/02/18 08:27 Mohsen Jose MD May 02, 2018 12:34
[2018-05-02] MEDS ORDERED: Tubing IV Secondary IV ONE (13:17)
[2018-05-02] MEDS ORDERED: NS 275ml ONE (13:17)
[2018-05-02 14:57] LABS: CHOLESTEROL 125 MG/DL (< 200); HDL CHOLESTEROL 31 MG/DL (40-60); TRIGLYCERIDES 84 MG/DL (30-150)
--- NOTE | 2018-05-02 15:28 | Consultation ---
Consult Note Consult Note asked to eval for low Na- Day 3 hospitalization current conditions: 1) Sepsis (2) Chronic respiratory failure (3) Tracheostomy care (4) Paraplegia (5) Injury brain, traumatic (6) Feeding by G-tube (7) Chronic hepatitis C without mention of hepatic coma Assessment/Plan Low Na, Likely SIADH Anemia Low Albumin Sepsis waiting Urine studies- 3% Saline and Lasix coreg monitor serum Na per consultants Chaz Acosta MD May 02, 2018 15:28
[2018-05-02 16:00] VITALS: BP 127/96
[2018-05-02] MEDS ORDERED: NaCl 3% 500ml 500 ML IV ONE (16:00)
[2018-05-02 20:00] VITALS: BP 134/92
[2018-05-02] MEDS: Acetylcysteine 20% Soln 4ml HHN SCH (20:02)
[2018-05-02] MEDS: Levalbuterol Inh UD 1.25mg/0.5ml HHN SCH (20:02)
[2018-05-03] VITALS: BP 130/90
[2018-05-03] MEDS: Vancomycin 1 GM in NS 275 ML IVPB SCH ×4 (00:56→23:47)
[2018-05-03] MEDS: Acetylcysteine 20% Soln 4ml HHN SCH ×4 (01:22→18:44)
[2018-05-03] MEDS: Levalbuterol Inh UD 1.25mg/0.5ml HHN SCH ×4 (01:22→18:44)
[2018-05-03 04:00] VITALS: BP 128/85
[2018-05-03 04:52] LABS: BASOPHILS % (AUTO) 0.6 % (0.0-2.0); EOSINOPHILS % (AUTO) 1.9 % (0.0-3.0); LYMPHOCYTES % (AUTO) 38.5 % (20.0-45.0); MEAN CORPUSCULAR VOLUME 86 FL (80-99); MONOCYTES % (AUTO) 9.7 % (1.0-10.0); NEUTROPHILS % (AUTO) 49.2 % (45.0-75.0); PLATELET COUNT 524 K/UL (150-450); RED BLOOD COUNT 3.47 M/UL (4.70-6.10); RED CELL DISTRIBUTION WIDTH 13.7 % (11.6-14.8); WHITE BLOOD COUNT 5.5 K/UL (4.8-10.8)
[2018-05-03 06:40] LABS: ALANINE AMINOTRANSFERASE 28 U/L (12-78); ALBUMIN 2.7 G/DL (3.4-5.0); ALBUMIN/GLOBULIN RATIO 0.5 (1.0-2.7); ALKALINE PHOSPHATASE 98 U/L (46-116); ANION GAP 8 mmol/L (5-15); ASPARTATE AMINO TRANSFERASE 25 U/L (15-37); BILIRUBIN,DIRECT < 0.1 MG/DL (0.0-0.3); BILIRUBIN,TOTAL 0.4 MG/DL (0.2-1.0); BLOOD UREA NITROGEN 4 mg/dL (7-18); CALCIUM 9.2 MG/DL (8.5-10.1); CARBON DIOXIDE 27 MMOL/L (21-32); CHLORIDE 96 MMOL/L (98-107); CREATINE KINASE 42 U/L (26-308); CREATININE 0.4 MG/DL (0.55-1.30); FERRITIN 151 NG/ML (8-388); GAMMA GLUTAMYL TRANSPEPTIDASE 62 U/L (5-85); POTASSIUM 3.7 MMOL/L (3.5-5.1); SODIUM 131 MMOL/L (136-145)
[2018-05-03 08:00] VITALS: BP 137/84
--- NOTE | 2018-05-03 08:31 | General Progress Note ---
Assessment/Plan Problem List: (1) UTI (urinary tract infection) ICD Codes: N39.0 - Urinary tract infection, site not specified SNOMED: 19482231 (2) Anemia ICD Codes: D64.9 - Anemia, unspecified SNOMED: 658185952 (3) HTN (hypertension) ICD Codes: I10 - Essential (primary) hypertension SNOMED: 05485776 (4) Respiratory distress ICD Codes: R06.03 - Acute respiratory distress SNOMED: 968529337 (5) Tracheostomy care ICD Codes: Z43.0 - Encounter for attention to tracheostomy SNOMED: 046603328 (6) Sepsis ICD Codes: A41.9 - Sepsis, unspecified organism SNOMED: 62572688 Qualifiers: Qualified Codes: A41.9 - Sepsis, unspecified organism (7) Pneumonia ICD Codes: J18.9 - Pneumonia, unspecified organism SNOMED: 017455231 Qualifiers: Qualified Codes: J18.1 - Lobar pneumonia, unspecified organism (8) Chronic respiratory failure ICD Codes: J96.10 - Chronic respiratory failure, unspecified whether with hypoxia or hypercapnia SNOMED: 85935907 Status: stable, progressing Assessment/Plan vent abx cbc bmp am dc plan snf if clear Subjective Constitutional: Reports: weakness Allergies: Coded Allergies: No Known Allergies (Unverified , 03/20/18) All Systems: reviewed and negative except above Subjective trach vent altered Objective Last 24 Hour Vital Signs Date Time Temp Pulse Resp B/P (MAP) Pulse Ox O2 Delivery O2 Flow Rate FiO2 05/03/18 07:07 111 20 100 T-piece 6.0 28 05/03/18 07:06 99 T-piece 6.0 28 05/03/18 07:06 T-piece 6.0 28 05/03/18 07:00 107 18 100 T-piece 6.0 28 05/03/18 07:00 28 05/03/18 04:00 108 05/03/18 04:00 T-piece 6.0 T-piece 6.0 05/03/18 04:00 99.4 111 18 128/85 (99) 98 05/03/18 01:23 28 05/03/18 01:23 112 20 100 T-piece 6.0 28 05/03/18 01:22 T-piece 6.0 28 11/4/18 01:22 108 20 99 T-piece 6.0 28 05/03/18 01:22 99 T-piece 6.0 28 05/03/18 00:00 99.4 100 18 130/90 (103) 99 05/03/18 00:00 T-piece 6.0 T-piece 6.0 05/02/18 20:50 107 134/92 05/02/18 20:05 104 20 100 T-piece 6.0 28 05/02/18 20:00 104 05/02/18 20:00 98 T-piece 6.0 28 05/02/18 20:00 T-piece 6.0 28 05/02/18 20:00 98.2 107 20 134/92 (106) 100 05/02/18 20:00 T-piece 6.0 T-piece 6.0 05/02/18 19:50 28 05/02/18 19:50 100 20 98 T-piece 6.0 28 05/02/18 16:21 102 127/96 05/02/18 16:00 99.1 102 21 127/96 (106) 98 05/02/18 16:00 90 05/02/18 16:00 T-piece 6.0 T-piece 6.0 05/02/18 12:29 88 20 98 T-piece 6.0 28 05/02/18 12:21 98 T-piece 6.0 28 05/02/18 12:21 101 18 98 T-piece 6.0 28 05/02/18 12:21 28 05/02/18 12:21 T-piece 6.0 28 05/02/18 12:00 99.8 107 18 123/79 (94) 96 05/02/18 12:00 T-piece 6.0 T-piece 6.0 05/02/18 11:58 89 Intake and Output 05/02/18 05/03/18 19:00 07:00 Intake Total 1593.5 ml 1475 ml Output Total 1520 ml 1900 ml Balance 73.5 ml -425 ml Free Water 200 ml 150 ml IV Total 593.5 ml 775 ml Tube Feeding 600 ml 550 ml Other 200 ml Output Urine Total 1500 ml 1900 ml Stool Total 20 ml # Bowel Movements 2 1 Laboratory Tests 05/02/18 14:20: Urine Osmolality 457H, Urine Random Sodium 163H 05/03/18 03:40: White Blood Count 5.5, Red Blood Count 3.47L, Hemoglobin 10.0L, Hematocrit 30.0L , Mean Corpuscular Volume 86, Mean Corpuscular Hemoglobin 28.7, Mean Corpuscular Hemoglobin Concent 33.3, Red Cell Distribution Width 13.7, Platelet Count 524H, Mean Platelet Volume 5.5L, Neutrophils (%) (Auto) 49.2, Lymphocytes (%) (Auto) 38.5, Monocytes (%) (Auto) 9.7, Eosinophils (%) (Auto) 1.9, Basophils (%) (Auto) 0.6, Sodium Level 131L, Potassium Level 3.7, Chloride Level 96L, Carbon Dioxide Level 27, Anion Gap 8, Blood Urea Nitrogen 4L, Creatinine 0.4L, Estimat Glomerular Filtration Rate > 60, Glucose Level 118H, Uric Acid 3.8, Calcium Level 9.2, Phosphorus Level 4.0, Magnesium Level 1.8, Ferritin 151, Total Bilirubin 0.4, Direct Bilirubin < 0.1, Gamma Glutamyl Transpeptidase 62, Aspartate Amino Transf (AST/SGOT) 25, Alanine Aminotransferase (ALT/SGPT) 28, Alkaline Phosphatase 98, Total Creatine Kinase 42, Pro-B-Type Natriuretic Peptide < 5, Total Protein 8.1, Albumin 2.7L, Globulin 5.4, Albumin/Globulin Ratio 0.5L, Vitamin B12 Level 1007H Height (Feet): 5 Height (Inches): 6.00 Weight (Pounds): 170 General Appearance: lethargic EENT: normal ENT inspection Neck: normal alignment Cardiovascular: normal peripheral pulses, normal rate, regular rhythm Respiratory/Chest: chest wall non-tender, lungs clear, normal breath sounds Abdomen: normal bowel sounds, non tender, soft Extremities: normal inspection Edema: no edema noted Arm (L), no edema noted Arm (R), no edema noted Leg (L), no edema noted Leg (R), no edema noted Pedal (L), no edema noted Pedal (R), no edema noted Generalized Neurologic: motor weakness Skin: normal pigmentation, warm/dry Marcellus Pa DO May 03, 2018 08:31
[2018-05-03] MEDS: Cefepime HCl 2 GM in D5W 55 ML IVPB SCH ×2 (08:34→20:37)
[2018-05-03] MEDS: Valproic Acid 250mg/5ml Liquid GT SCH ×2 (08:36→20:37)
[2018-05-03] MEDS: Heparin 5000 units/ml inj SUBQ SCH ×2 (08:40→20:39)
[2018-05-03] MEDS: levETIRAcetam 500mg/5ml Liquid GT SCH ×2 (08:41→20:37)
[2018-05-03] MEDS ORDERED: Sterile Water Irrig 1000ml IRRIG ONE (09:21)
[2018-05-03] MEDS ORDERED: NS 275ml ONE ×2 (09:21→15:11)
[2018-05-03] MEDS ORDERED: Tubing IV Secondary IV ONE ×2 (09:21→15:11)
--- NOTE | 2018-05-03 09:39 | Pulmonology Progress Note ---
Assessment/Plan Assessment/Plan Assessment/Plan Problems: (1) Sepsis (2) Chronic respiratory failure (3) Tracheostomy care (4) Paraplegia (5) Injury brain, traumatic (6) Feeding by G-tube (7) Chronic hepatitis C without mention of hepatic coma Assessment/Plan rectal tube is inplace for diarrhea butt cultures iv abx gtube feeding nutrition evaluation dvt prophylaxis check electrolytes Subjective ROS Limited/Unobtainable: Yes Constitutional: Reports: no symptoms HEENT: Repors: no symptoms Respiratory: Reports: no symptoms Allergies: Coded Allergies: No Known Allergies (Unverified , 03/20/18) Objective Vital Signs noted General Appearance: WD/WN HEENT: normocephalic, atraumatic Respiratory/Chest: chest wall non-tender, lungs clear Cardiovascular: normal peripheral pulses, normal rate Abdomen: normal bowel sounds, soft, non tender Extremities: no cyanosis Skin: no rash, no ulcers Microbiology Date/Time Source Procedure Growth Status 04/29/18 21:38 Blood Blood Culture - Preliminary NO GROWTH AFTER 24 HOURS Resulted 04/29/18 21:35 Blood Blood Culture - Preliminary NO GROWTH AFTER 24 HOURS Resulted 04/29/18 22:30 Urine,Clean Catch Urine Culture - Preliminary Gram Negative Bacillus 1 Resulted 04/30/18 00:50 Rectum Received Laboratory Tests 05/01/18 04:00: White Blood Count 7.4, Red Blood Count 3.29L, Hemoglobin 9.7L, Hematocrit 28.9L , Mean Corpuscular Volume 88, Mean Corpuscular Hemoglobin 29.4, Mean Corpuscular Hemoglobin Concent 33.4, Red Cell Distribution Width 14.4, Platelet Count 501H, Mean Platelet Volume 5.3L, Neutrophils (%) (Auto) 58.2, Lymphocytes (%) (Auto) 33.0, Monocytes (%) (Auto) 7.1, Eosinophils (%) (Auto) 1.1, Basophils (%) (Auto) 0.6, Sodium Level 133L, Potassium Level 3.3L, Chloride Level 98, Carbon Dioxide Level 28, Anion Gap 7, Blood Urea Nitrogen 5L, Creatinine 0.4L, Estimat Glomerular Filtration Rate > 60, Glucose Level 114H, Calcium Level 9.2 Current Medications Medications (Trade) Dose Ordered Sig/Jhonny Route PRN Reason Start Time Stop Time Status Last Admin Dose Admin Acetaminophen (Tylenol) 650 mg Q6H PRN GT Prn Headache/Temp > 101 04/30/18 14:30 05/30/18 14:29 05/01/18 06:25 Albuterol Sulfate (Proventil) 2.5 mg Q6H PRN HHN Shortness of Breath 04/30/18 14:34 05/05/18 14:33 Baclofen (Lioresal) 5 mg EVERY 12 HOURS GT 04/30/18 21:00 05/30/18 20:59 05/01/18 08:40 Cefepime HCl 2 gm/ Dextrose 55 ml @ 110 mls/hr EVERY 12 HOURS IVPB 05/01/18 09:00 05/08/18 08:59 05/01/18 09:12 Famotidine (Pepcid) 20 mg EVERY 12 HOURS GT 04/30/18 21:00 05/30/18 20:59 05/01/18 08:40 Heparin Sodium (Porcine) (Heparin 5000 units/ml) 5,000 units EVERY 12 HOURS SUBQ 04/30/18 21:00 05/30/18 20:59 05/01/18 08:47 Levetiracetam (Keppra) 1,000 mg EVERY 12 HOURS GT 04/30/18 21:00 05/30/18 20:59 05/01/18 08:40 Magnesium Hydroxide (Mom) 30 ml QHS PRN GT Constipation 04/30/18 14:30 05/30/18 14:29 Morphine Sulfate (Morphine Sulfate) 2 mg Q4H PRN IVP For Pain 04/30/18 04:15 05/07/18 04:14 Propranolol HCl (Inderal) 10 mg DAILY GT 04/30/18 14:21 05/30/18 14:20 04/30/18 14:42 Valproic Acid (Depakene) 250 mg EVERY 12 HOURS GT 04/30/18 21:00 05/30/18 20:59 05/01/18 08:39 Vancomycin HCl (Vanco rx to dose) 1 ea DAILY PRN MISC Per rx protocol 04/30/18 22:15 05/30/18 22:14 Vancomycin HCl 1 gm/Sodium Chloride 275 ml @ 184 mls/hr Q8H IVPB 05/01/18 00:00 05/06/18 00:00 05/01/18 09:44 Subjective ROS Limited/Unobtainable: Yes Allergies: Coded Allergies: No Known Allergies (Unverified , 03/20/18) Objective Last 24 Hour Vital Signs Date Time Temp Pulse Resp B/P (MAP) Pulse Ox O2 Delivery O2 Flow Rate FiO2 05/03/18 08:36 106 137/84 05/03/18 08:00 108 05/03/18 07:07 111 20 100 T-piece 6.0 28 05/03/18 07:06 99 T-piece 6.0 28 05/03/18 07:06 T-piece 6.0 28 05/03/18 07:00 107 18 100 T-piece 6.0 28 05/03/18 07:00 28 05/03/18 04:00 108 05/03/18 04:00 T-piece 6.0 T-piece 6.0 05/03/18 04:00 99.4 111 18 128/85 (99) 98 05/03/18 01:23 28 05/03/18 01:23 112 20 100 T-piece 6.0 05/03/18 01:22 T-piece 6.0 28 05/03/18 01:22 108 20 99 T-piece 6.0 28 05/03/18 01:22 99 T-piece 6.0 28 05/03/18 00:00 99.4 100 18 130/90 (103) 99 05/03/18 00:00 T-piece 6.0 T-piece 6.0 05/02/18 20:50 107 134/92 05/02/18 20:05 104 20 100 T-piece 6.0 05/02/18 20:00 104 05/02/18 20:00 98 T-piece 6.0 28 05/02/18 20:00 T-piece 6.0 28 05/02/18 20:00 98.2 107 20 134/92 (106) 100 05/02/18 20:00 T-piece 6.0 T-piece 6.0 05/02/18 19:50 28 05/02/18 19:50 100 20 98 T-piece 6.0 28 05/02/18 16:21 102 127/96 05/02/18 16:00 99.1 102 21 127/96 (106) 98 05/02/18 16:00 90 05/02/18 16:00 T-piece 6.0 T-piece 6.0 05/02/18 12:29 88 20 98 T-piece 6.0 28 05/02/18 12:21 98 T-piece 6.0 28 05/02/18 12:21 101 18 98 T-piece 6.0 28 05/02/18 12:21 28 05/02/18 12:21 T-piece 6.0 28 05/02/18 12:00 99.8 107 18 123/79 (94) 96 05/02/18 12:00 T-piece 6.0 T-piece 6.0 05/02/18 11:58 89 Intake and Output 05/02/18 05/03/18 18:59 06:59 Intake Total 1563.5 ml 1475 ml Output Total 1520 ml 1900 ml Balance 43.5 ml -425 ml Free Water 200 ml 150 ml IV Total 563.5 ml 775 ml Tube Feeding 600 ml 550 ml Other 200 ml Output Urine Total 1500 ml 1900 ml Stool Total 20 ml # Bowel Movements 2 1 Microbiology Date/Time Source Procedure Growth Status 05/01/18 18:30 Blood Blood Culture - Preliminary NO GROWTH AFTER 24 HOURS Resulted 05/01/18 18:30 Blood Blood Culture - Preliminary NO GROWTH AFTER 24 HOURS Resulted 04/30/18 12:45 Sputum Induced Gram Stain - Final Resulted 04/30/18 12:45 Sputum Culture - Preliminary Staphylococcus Aureus Gram Negative Bacillus 2 Resulted 05/01/18 04:00 Stool Clostridium difficile Toxin Assay - Final Complete Laboratory Tests 05/02/18 14:20: Urine Osmolality 457H, Urine Random Sodium 163H 05/03/18 03:40: White Blood Count 5.5, Red Blood Count 3.47L, Hemoglobin 10.0L, Hematocrit 30.0L , Mean Corpuscular Volume 86, Mean Corpuscular Hemoglobin 28.7, Mean Corpuscular Hemoglobin Concent 33.3, Red Cell Distribution Width 13.7, Platelet Count 524H, Mean Platelet Volume 5.5L, Neutrophils (%) (Auto) 49.2, Lymphocytes (%) (Auto) 38.5, Monocytes (%) (Auto) 9.7, Eosinophils (%) (Auto) 1.9, Basophils (%) (Auto) 0.6, Sodium Level 131L, Potassium Level 3.7, Chloride Level 96L, Carbon Dioxide Level 27, Anion Gap 8, Blood Urea Nitrogen 4L, Creatinine 0.4L, Estimat Glomerular Filtration Rate > 60, Glucose Level 118H, Uric Acid 3.8, Calcium Level 9.2, Phosphorus Level 4.0, Magnesium Level 1.8, Ferritin 151, Total Bilirubin 0.4, Direct Bilirubin < 0.1, Gamma Glutamyl Transpeptidase 62, Aspartate Amino Transf (AST/SGOT) 25, Alanine Aminotransferase (ALT/SGPT) 28, Alkaline Phosphatase 98, Total Creatine Kinase 42, Pro-B-Type Natriuretic Peptide < 5, Total Protein 8.1, Albumin 2.7L, Globulin 5.4, Albumin/Globulin Ratio 0.5L, Vitamin B12 Level 1007H Current Medications Medications (Trade) Dose Ordered Sig/Jhonny Route PRN Reason Start Time Stop Time Status Last Admin Dose Admin Acetaminophen (Tylenol) 650 mg Q6H PRN GT Prn Headache/Temp > 101 04/30/18 14:30 05/30/18 14:29 05/01/18 06:25 Acetylcysteine (Mucomyst) 200 mg Q6HRT HHN 05/02/18 19:00 06/01/18 18:59 05/03/18 07:05 Albuterol Sulfate (Proventil) 2.5 mg Q6H PRN HHN Shortness of Breath 04/30/18 14:34 05/05/18 14:33 Baclofen (Lioresal) 5 mg EVERY 12 HOURS GT 04/30/18 21:00 05/30/18 20:59 05/03/18 08:36 Carvedilol (Coreg) 3.125 mg EVERY 12 HOURS ORAL 05/02/18 21:00 06/01/18 20:59 05/03/18 08:36 Cefepime HCl 2 gm/ Dextrose 55 ml @ 110 mls/hr EVERY 12 HOURS IVPB 05/01/18 09:00 05/08/18 08:59 05/03/18 08:34 Furosemide (Lasix) 10 mg EVERY 6 HOURS IV 05/02/18 18:00 06/01/18 17:59 05/03/18 06:10 Heparin Sodium (Porcine) (Heparin 5000 units/ml) 5,000 units EVERY 12 HOURS SUBQ 04/30/18 21:00 05/30/18 20:59 05/03/18 08:40 Levalbuterol HCl (Xopenex) 1.25 mg Q6HRT HHN 05/02/18 19:00 05/07/18 18:59 05/03/18 07:05 Levetiracetam (Keppra) 1,000 mg EVERY 12 HOURS GT 04/30/18 21:00 05/30/18 20:59 05/03/18 08:41 Morphine Sulfate (Morphine Sulfate) 2 mg Q4H PRN IVP For Pain 04/30/18 04:15 05/07/18 04:14 Valproic Acid (Depakene) 250 mg EVERY 12 HOURS GT 04/30/18 21:00 05/30/18 20:59 05/03/18 08:36 Vancomycin HCl (Vanco rx to dose) 1 ea DAILY PRN MISC Per rx protocol 04/30/18 22:15 05/30/18 22:14 Vancomycin HCl 1 gm/Sodium Chloride 275 ml @ 184 mls/hr Q8H IVPB 05/01/18 00:00 05/06/18 00:00 05/03/18 08:51 Mohsen Jose MD May 03, 2018 09:39
--- NOTE | 2018-05-03 10:26 | Nephrology Progress Note ---
Assessment/Plan Problem List: (1) Hyponatremia (2) Sepsis (3) Chronic respiratory failure (4) Anemia (5) Paraplegia Assessment Low Na, Likely SIADH Anemia Low Albumin Sepsis Plan waiting Urine studies- 3% Saline and Lasix coreg monitor serum Na per consultants Subjective ROS Limited/Unobtainable: Yes Objective Objective Last 24 Hour Vital Signs Date Time Temp Pulse Resp B/P (MAP) Pulse Ox O2 Delivery O2 Flow Rate FiO2 05/03/18 08:36 106 137/84 05/03/18 08:00 108 05/03/18 07:07 111 20 100 T-piece 6.0 28 05/03/18 07:06 99 T-piece 6.0 28 05/03/18 07:06 T-piece 6.0 28 05/03/18 07:00 107 18 100 T-piece 6.0 28 05/03/18 07:00 28 05/03/18 04:00 108 05/03/18 04:00 T-piece 6.0 T-piece 6.0 05/03/18 04:00 99.4 111 18 128/85 (99) 98 05/03/18 01:23 28 05/03/18 01:23 112 20 100 T-piece 6.0 28 05/03/18 01:22 T-piece 6.0 28 05/03/18 01:22 108 20 99 T-piece 6.0 28 05/03/18 01:22 99 T-piece 6.0 28 05/03/18 00:00 99.4 100 18 130/90 (103) 99 05/03/18 00:00 T-piece 6.0 T-piece 6.0 05/02/18 20:50 107 134/92 05/02/18 20:05 104 20 100 T-piece 6.0 28 05/02/18 20:00 104 05/02/18 20:00 98 T-piece 6.0 28 05/02/18 20:00 T-piece 6.0 28 05/02/18 20:00 98.2 107 20 134/92 (106) 100 05/02/18 20:00 T-piece 6.0 T-piece 6.0 05/02/18 19:50 28 05/02/18 19:50 100 20 98 T-piece 6.0 28 05/02/18 16:21 102 127/96 05/02/18 16:00 99.1 102 21 127/96 (106) 98 05/02/18 16:00 90 05/02/18 16:00 T-piece 6.0 T-piece 6.0 05/02/18 12:29 88 20 98 T-piece 6.0 28 05/02/18 12:21 98 T-piece 6.0 28 05/02/18 12:21 101 18 98 T-piece 6.0 28 05/02/18 12:21 28 05/02/18 12:21 T-piece 6.0 28 05/02/18 12:00 99.8 107 18 123/79 (94) 96 05/02/18 12:00 T-piece 6.0 T-piece 6.0 05/02/18 11:58 89 Intake and Output 05/02/18 05/03/18 18:59 06:59 Intake Total 1563.5 ml 1475 ml Output Total 1520 ml 1900 ml Balance 43.5 ml -425 ml Free Water 200 ml 150 ml IV Total 563.5 ml 775 ml Tube Feeding 600 ml 550 ml Other 200 ml Output Urine Total 1500 ml 1900 ml Stool Total 20 ml # Bowel Movements 2 1 Laboratory Tests 05/02/18 14:20: Urine Osmolality 457H, Urine Random Sodium 163H 05/03/18 03:40: White Blood Count 5.5, Red Blood Count 3.47L, Hemoglobin 10.0L, Hematocrit 30.0L , Mean Corpuscular Volume 86, Mean Corpuscular Hemoglobin 28.7, Mean Corpuscular Hemoglobin Concent 33.3, Red Cell Distribution Width 13.7, Platelet Count 524H, Mean Platelet Volume 5.5L, Neutrophils (%) (Auto) 49.2, Lymphocytes (%) (Auto) 38.5, Monocytes (%) (Auto) 9.7, Eosinophils (%) (Auto) 1.9, Basophils (%) (Auto) 0.6, Sodium Level 131L, Potassium Level 3.7, Chloride Level 96L, Carbon Dioxide Level 27, Anion Gap 8, Blood Urea Nitrogen 4L, Creatinine 0.4L, Estimat Glomerular Filtration Rate > 60, Glucose Level 118H, Uric Acid 3.8, Calcium Level 9.2, Phosphorus Level 4.0, Magnesium Level 1.8, Iron Level [Pending], Unsaturated Iron Binding [Pending], Ferritin 151, Total Bilirubin 0.4, Direct Bilirubin < 0.1, Gamma Glutamyl Transpeptidase 62, Aspartate Amino Transf (AST/SGOT) 25, Alanine Aminotransferase (ALT/SGPT) 28, Alkaline Phosphatase 98, Total Creatine Kinase 42, Pro-B-Type Natriuretic Peptide < 5, Total Protein 8.1, Albumin 2.7L, Globulin 5.4, Albumin/Globulin Ratio 0.5L, Vitamin B12 Level 1007H, Folate [Pending] Height (Feet): 5 Height (Inches): 6.00 Weight (Pounds): 170 General Appearance: no apparent distress Cardiovascular: tachycardia Respiratory/Chest: decreased breath sounds Abdomen: distended Chaz Acosta MD May 03, 2018 10:26
[2018-05-03 10:48] LABS: % IRON SATURATION 15 % (15-50); IRON 29 ug/dL (50-175); TOTAL IRON BINDING CAPACITY 198 ug/dL (250-450)
[2018-05-03] MEDS ORDERED: NaCl 3% 500ml 500 ML IV ONE (11:00)
[2018-05-03 12:00] VITALS: BP 121/84
--- NOTE | 2018-05-03 12:31 | General Surgery Progress Note ---
General Surgery-Progress Note Subjective Symptoms: improved, pain absent Additional Comments no acute events. comfortable. Objective Last 24 Hour Vital Signs Date Time Temp Pulse Resp B/P (MAP) Pulse Ox O2 Delivery O2 Flow Rate FiO2 05/03/18 08:36 106 137/84 05/03/18 08:00 108 05/03/18 08:00 T-piece 6.0 T-piece 6.0 05/03/18 08:00 98.4 106 28 137/84 (101) 98 05/03/18 07:07 111 20 100 T-piece 6.0 28 05/03/18 07:06 99 T-piece 6.0 28 05/03/18 07:06 T-piece 6.0 28 05/03/18 07:00 107 18 100 T-piece 6.0 28 05/03/18 07:00 28 05/03/18 04:00 108 05/03/18 04:00 T-piece 6.0 T-piece 6.0 05/03/18 04:00 99.4 111 18 128/85 (99) 98 05/03/18 01:23 28 05/03/18 01:23 112 20 100 T-piece 6.0 28 05/03/18 01:22 T-piece 6.0 28 05/03/18 01:22 108 20 99 T-piece 6.0 28 05/03/18 01:22 99 T-piece 6.0 28 05/03/18 00:00 99.4 100 18 130/90 (103) 99 05/03/18 00:00 T-piece 6.0 T-piece 6.0 05/02/18 20:50 107 134/92 05/02/18 20:05 104 20 100 T-piece 6.0 28 05/02/18 20:00 104 05/02/18 20:00 98 T-piece 6.0 28 05/02/18 20:00 T-piece 6.0 28 05/02/18 20:00 98.2 107 20 134/92 (106) 100 05/02/18 20:00 T-piece 6.0 T-piece 6.0 05/02/18 19:50 28 05/02/18 19:50 100 20 98 T-piece 6.0 28 05/02/18 16:21 102 127/96 05/02/18 16:00 99.1 102 21 127/96 (106) 98 05/02/18 16:00 90 05/02/18 16:00 T-piece 6.0 T-piece 6.0 I&O Intake and Output 05/02/18 05/03/18 18:59 06:59 Intake Total 1563.5 ml 1475 ml Output Total 1520 ml 1900 ml Balance 43.5 ml -425 ml Free Water 200 ml 150 ml IV Total 563.5 ml 775 ml Tube Feeding 600 ml 550 ml Other 200 ml Output Urine Total 1500 ml 1900 ml Stool Total 20 ml # Bowel Movements 2 1 Dressing: dry, other Wound: clean Drains: other Cardiovascular: RSR Respiratory: clear Abdomen: soft, flat, non-tender, present bowel sounds Extremities: cyanosis, other Laboratory Tests Test 05/02/18 14:20 05/03/18 03:40 Urine Osmolality 457 mOsm/kg (429-449) H Urine Random Sodium 163 mmol/L (20-110) H White Blood Count 5.5 K/UL (4.8-10.8) Red Blood Count 3.47 M/UL (4.70-6.10) L Hemoglobin 10.0 G/DL (14.2-18.0) L Hematocrit 30.0 % (42.0-52.0) L Mean Corpuscular Volume 86 FL (80-99) Mean Corpuscular Hemoglobin 28.7 PG (27.0-31.0) Mean Corpuscular Hemoglobin Concent 33.3 G/DL (32.0-36.0) Red Cell Distribution Width 13.7 % (11.6-14.8) Platelet Count 524 K/UL (150-450) H Mean Platelet Volume 5.5 FL (6.5-10.1) L Neutrophils (%) (Auto) 49.2 % (45.0-75.0) Lymphocytes (%) (Auto) 38.5 % (20.0-45.0) Monocytes (%) (Auto) 9.7 % (1.0-10.0) Eosinophils (%) (Auto) 1.9 % (0.0-3.0) Basophils (%) (Auto) 0.6 % (0.0-2.0) Sodium Level 131 MMOL/L (136-145) L Potassium Level 3.7 MMOL/L (3.5-5.1) Chloride Level 96 MMOL/L (98-107) L Carbon Dioxide Level 27 MMOL/L (21-32) Anion Gap 8 mmol/L (5-15) Blood Urea Nitrogen 4 mg/dL (7-18) L Creatinine 0.4 MG/DL (0.55-1.30) L Estimat Glomerular Filtration Rate > 60 mL/min (>60) Glucose Level 118 MG/DL (74-106) H Uric Acid 3.8 MG/DL (2.6-7.2) Calcium Level 9.2 MG/DL (8.5-10.1) Phosphorus Level 4.0 MG/DL (2.5-4.9) Magnesium Level 1.8 MG/DL (1.8-2.4) Iron Level 29 ug/dL (50-175) L Total Iron Binding Capacity 198 ug/dL (250-450) L Percent Iron Saturation 15 % (15-50) Unsaturated Iron Binding 169 ug/dL (112-346) Ferritin 151 NG/ML (8-388) Total Bilirubin 0.4 MG/DL (0.2-1.0) Direct Bilirubin < 0.1 MG/DL (0.0-0.3) Gamma Glutamyl Transpeptidase 62 U/L (5-85) Aspartate Amino Transf (AST/SGOT) 25 U/L (15-37) Alanine Aminotransferase (ALT/SGPT) 28 U/L (12-78) Alkaline Phosphatase 98 U/L (46-116) Total Creatine Kinase 42 U/L (26-308) Pro-B-Type Natriuretic Peptide < 5 pg/mL (0-125) Total Protein 8.1 G/DL (6.4-8.2) Albumin 2.7 G/DL (3.4-5.0) L Globulin 5.4 g/dL Albumin/Globulin Ratio 0.5 (1.0-2.7) L Vitamin B12 Level 1007 PG/ML (193-986) H Folate 25.4 NG/ML (8.6-58.9) Plan Problems: (1) Sepsis Assessment & Plan: leukocytosis resolving wounds stable improving cont feeds (2) Dry gangrene Assessment & Plan: patient presents with multiple DTI bilateral heel DTI left distal great toe DTI with likely prior debridement currently with dry gangrene at tip right distal great toe DTI with dry gangrene at lateral edge resolved sacral wound now with scar tissue lower extremity contraction all wounds present upon admission and will be cared for during hospital stay no acute surgical intervention necessary and unlikely etiology of sepsis skin protectant to bilateral heels and great toe DTI. wash with NS, apply skin protectant, apply foam dressings foam sacral dressing protective air pressure release mattress heel protectors turn q2h thank you. will follow with recs. Panda Nur May 03, 2018 12:31
[2018-05-03 16:00] VITALS: BP 122/79
[2018-05-03 20:00] VITALS: BP 133/84
[2018-05-03] MEDS: Carvedilol 6.25mg Tab ORAL SCH (20:37)
[2018-05-04] VITALS: BP 105/65
[2018-05-04] MEDS: Levalbuterol Inh UD 1.25mg/0.5ml HHN SCH ×4 (01:18→20:50)
[2018-05-04] MEDS: Acetylcysteine 20% Soln 4ml HHN SCH ×4 (01:18→20:50)
[2018-05-04 04:00] VITALS: BP 121/71
[2018-05-04 04:50] LABS: BASOPHILS % (AUTO) 1.3 % (0.0-2.0); EOSINOPHILS % (AUTO) 2.1 % (0.0-3.0); HEMATOCRIT 28.8 % (42.0-52.0); LYMPHOCYTES % (AUTO) 43.8 % (20.0-45.0); MEAN CORPUSCULAR VOLUME 88 FL (80-99); MONOCYTES % (AUTO) 10.9 % (1.0-10.0); NEUTROPHILS % (AUTO) 41.9 % (45.0-75.0); PLATELET COUNT 438 K/UL (150-450); RED BLOOD COUNT 3.27 M/UL (4.70-6.10); RED CELL DISTRIBUTION WIDTH 14.2 % (11.6-14.8); WHITE BLOOD COUNT 4.8 K/UL (4.8-10.8)
[2018-05-04 05:00] LABS: ANION GAP 7 mmol/L (5-15); BLOOD UREA NITROGEN 6 mg/dL (7-18); CALCIUM 9.1 MG/DL (8.5-10.1); CARBON DIOXIDE 28 MMOL/L (21-32); CHLORIDE 104 MMOL/L (98-107); CREATININE 0.5 MG/DL (0.55-1.30); POTASSIUM 3.7 MMOL/L (3.5-5.1); SODIUM 139 MMOL/L (136-145)
[2018-05-04 08:00] VITALS: BP 109/71
[2018-05-04] MEDS: Vancomycin 1 GM in NS 275 ML IVPB SCH ×2 (08:57→16:29)
[2018-05-04] MEDS: Valproic Acid 250mg/5ml Liquid GT SCH ×2 (09:08→20:09)
[2018-05-04] MEDS: Cefepime HCl 2 GM in D5W 55 ML IVPB SCH ×2 (09:08→20:09)
[2018-05-04] MEDS: levETIRAcetam 500mg/5ml Liquid GT SCH ×2 (09:08→20:09)
[2018-05-04] MEDS: Carvedilol 6.25mg Tab ORAL SCH ×2 (09:09→20:10)
[2018-05-04] MEDS: Heparin 5000 units/ml inj SUBQ SCH ×2 (09:11→20:11)
--- NOTE | 2018-05-04 09:54 | Infectious Diseases Prog Note ---
Assessment/Plan Assessment/Plan ASSESSMENT: Probable bacteremia CoNS (05/01 and 04/29 ) BCx : 2/4 Fever, Sp Probable UTI UCx : PSA Probable pneumonia (healthcare-associated pneumonia) (despite of unremarkable chest x-ray) SCX: PSA History of chronic hepatitis C Diarrhea C Diff : Neg Anoxic brain damage. Quadriplegia. Seizure disorder. Hypertension. Status post trach and PEG. PLAN: Continue the patient on vancomycin d# 5 / 7 and cefepime d# 5/ 14 ( UTI and Pneum) Monitor CBC. Monitor BMP. Monitor cultures (blood, urine, and sputum), Rpt Blood Cx Monitor chest x-ray 2DEcho Subjective Allergies: Coded Allergies: No Known Allergies (Unverified , 03/20/18) Subjective Febrile non verbal Diarrhea Objective Vital Signs Last 24 Hour Vital Signs Date Time Temp Pulse Resp B/P (MAP) Pulse Ox O2 Delivery O2 Flow Rate FiO2 05/04/18 09:09 105 109/71 05/04/18 08:00 98.2 105 20 109/71 (84) 99 05/04/18 04:00 97.6 92 20 121/71 (88) 98 05/04/18 04:00 T-piece 6.0 T-piece 6.0 05/04/18 04:00 95 05/04/18 01:37 92 18 100 T-piece 6.0 28 05/04/18 01:37 28 05/04/18 01:19 T-piece 6.0 28 05/04/18 01:19 101 18 98 T-piece 6.0 28 05/04/18 01:18 98 T-piece 6.0 28 05/04/18 00:00 T-piece 6.0 T-piece 6.0 05/04/18 00:00 89 05/04/18 00:00 97.2 95 20 105/65 (78) 98 05/03/18 20:37 104 133/84 05/03/18 20:00 98.0 105 20 133/84 (100) 100 05/03/18 20:00 T-piece 6.0 T-piece 6.0 05/03/18 20:00 97 05/03/18 19:07 28 05/03/18 19:07 100 18 100 T-piece 6.0 28 05/03/18 18:47 100 T-piece 6.0 28 05/03/18 18:47 T-piece 6.0 28 05/03/18 18:44 100 18 100 T-piece 6.0 28 05/03/18 16:00 T-piece 6.0 T-piece 6.0 05/03/18 16:00 98 05/03/18 16:00 99.0 98 20 122/79 (93) 96 05/03/18 13:38 101 18 100 T-piece 6.0 28 05/03/18 13:37 T-piece 6.0 28 05/03/18 13:37 98 T-piece 6.0 28 05/03/18 13:32 98 20 98 T-piece 6.0 28 05/03/18 13:32 28 05/03/18 12:00 110 05/03/18 12:00 T-piece 6.0 T-piece 6.0 05/03/18 12:00 98.2 104 26 121/84 (96) 100 Height (Feet): 5 Height (Inches): 6.00 Weight (Pounds): 170 HEENT: anicteric Respiratory/Chest: no respiratory distress Cardiovascular: normal rate Abdomen: soft, non tender Microbiology Date/Time Source Procedure Growth Status 05/01/18 18:30 Blood Blood Culture - Preliminary NO GROWTH AFTER 48 HOURS Resulted 05/01/18 18:30 Blood Blood Culture - Final Staphylococcus Capitis Complete Laboratory Tests Test 05/04/18 03:22 White Blood Count 4.8 K/UL (4.8-10.8) Red Blood Count 3.27 M/UL (4.70-6.10) L Hemoglobin 10.0 G/DL (14.2-18.0) L Hematocrit 28.8 % (42.0-52.0) L Mean Corpuscular Volume 88 FL (80-99) Mean Corpuscular Hemoglobin 30.7 PG (27.0-31.0) Mean Corpuscular Hemoglobin Concent 34.9 G/DL (32.0-36.0) Red Cell Distribution Width 14.2 % (11.6-14.8) Platelet Count 438 K/UL (150-450) Mean Platelet Volume 5.3 FL (6.5-10.1) L Neutrophils (%) (Auto) 41.9 % (45.0-75.0) L Lymphocytes (%) (Auto) 43.8 % (20.0-45.0) Monocytes (%) (Auto) 10.9 % (1.0-10.0) H Eosinophils (%) (Auto) 2.1 % (0.0-3.0) Basophils (%) (Auto) 1.3 % (0.0-2.0) Sodium Level 139 MMOL/L (136-145) Potassium Level 3.7 MMOL/L (3.5-5.1) Chloride Level 104 MMOL/L (98-107) Carbon Dioxide Level 28 MMOL/L (21-32) Anion Gap 7 mmol/L (5-15) Blood Urea Nitrogen 6 mg/dL (7-18) L Creatinine 0.5 MG/DL (0.55-1.30) L Estimat Glomerular Filtration Rate > 60 mL/min (>60) Glucose Level 127 MG/DL (74-106) H Calcium Level 9.1 MG/DL (8.5-10.1) Current Medications Medications (Trade) Dose Ordered Sig/Jhonny Route PRN Reason Start Time Stop Time Status Last Admin Dose Admin Acetaminophen (Tylenol) 650 mg Q6H PRN GT Prn Headache/Temp > 101 04/30/18 14:30 05/30/18 14:29 05/01/18 06:25 Acetylcysteine (Mucomyst) 200 mg Q6HRT HHN 05/02/18 19:00 06/01/18 18:59 05/04/18 07:12 Albuterol Sulfate (Proventil) 2.5 mg Q6H PRN HHN Shortness of Breath 04/30/18 14:34 05/05/18 14:33 Baclofen (Lioresal) 5 mg EVERY 12 HOURS GT 04/30/18 21:00 05/30/18 20:59 05/04/18 09:09 Carvedilol (Coreg) 6.25 mg EVERY 12 HOURS ORAL 05/03/18 21:00 06/01/18 20:59 05/04/18 09:09 Cefepime HCl 2 gm/ Dextrose 55 ml @ 110 mls/hr EVERY 12 HOURS IVPB 05/01/18 09:00 05/08/18 08:59 05/04/18 09:08 Furosemide (Lasix) 10 mg EVERY 6 HOURS IV 05/02/18 18:00 06/01/18 17:59 05/04/18 05:49 Heparin Sodium (Porcine) (Heparin 5000 units/ml) 5,000 units EVERY 12 HOURS SUBQ 04/30/18 21:00 05/30/18 20:59 05/04/18 09:11 Levalbuterol HCl (Xopenex) 1.25 mg Q6HRT HHN 05/02/18 19:00 05/07/18 18:59 05/04/18 07:11 Levetiracetam (Keppra) 1,000 mg EVERY 12 HOURS GT 04/30/18 21:00 05/30/18 20:59 05/04/18 09:08 Morphine Sulfate (Morphine Sulfate) 2 mg Q4H PRN IVP For Pain 04/30/18 04:15 05/07/18 04:14 Valproic Acid (Depakene) 250 mg EVERY 12 HOURS GT 04/30/18 21:00 05/30/18 20:59 05/04/18 09:08 Vancomycin HCl (Vanco rx to dose) 1 ea DAILY PRN MISC Per rx protocol 04/30/18 22:15 05/30/18 22:14 Vancomycin HCl 1 gm/Sodium Chloride 275 ml @ 184 mls/hr Q8H IVPB 05/01/18 00:00 05/06/18 00:00 05/04/18 08:57 Roosevelt Echeverria MD May 04, 2018 09:54
--- NOTE | 2018-05-04 10:55 | Pulmonology Progress Note ---
Assessment/Plan Problems: (1) Sepsis (2) Chronic respiratory failure (3) Tracheostomy care (4) Paraplegia (5) Injury brain, traumatic (6) Feeding by G-tube (7) Chronic hepatitis C without mention of hepatic coma Assessment/Plan afebrile BC positive for Staph capitis butt cultures iv abx gtube feeding CXR is better dvt prophylaxis check electrolytes Subjective ROS Limited/Unobtainable: No Constitutional: Reports: no symptoms HEENT: Repors: no symptoms Respiratory: Reports: no symptoms Allergies: Coded Allergies: No Known Allergies (Unverified , 03/20/18) Objective Last 24 Hour Vital Signs Date Time Temp Pulse Resp B/P (MAP) Pulse Ox O2 Delivery O2 Flow Rate FiO2 05/04/18 09:09 105 109/71 05/04/18 08:00 T-piece 6.0 T-piece 6.0 05/04/18 08:00 98.2 105 20 109/71 (84) 99 05/04/18 04:00 97.6 92 20 121/71 (88) 98 05/04/18 04:00 T-piece 6.0 T-piece 6.0 05/04/18 04:00 95 05/04/18 01:37 92 18 100 T-piece 6.0 28 05/04/18 01:37 28 05/04/18 01:19 T-piece 6.0 28 05/04/18 01:19 101 18 98 T-piece 6.0 28 05/04/18 01:18 98 T-piece 6.0 28 05/04/18 00:00 T-piece 6.0 T-piece 6.0 05/04/18 00:00 89 05/04/18 00:00 97.2 95 20 105/65 (78) 98 05/03/18 20:37 104 133/84 05/03/18 20:00 98.0 105 20 133/84 (100) 100 05/03/18 20:00 T-piece 6.0 T-piece 6.0 05/03/18 20:00 97 05/03/18 19:07 28 05/03/18 19:07 100 18 100 T-piece 6.0 28 05/03/18 18:47 100 T-piece 6.0 28 05/03/18 18:47 T-piece 6.0 28 05/03/18 18:44 100 18 100 T-piece 6.0 28 05/03/18 16:00 T-piece 6.0 T-piece 6.0 05/03/18 16:00 98 05/03/18 16:00 99.0 98 20 122/79 (93) 96 05/03/18 13:38 101 18 100 T-piece 6.0 28 05/03/18 13:37 T-piece 6.0 28 05/03/18 13:37 98 T-piece 6.0 28 05/03/18 13:32 98 20 98 T-piece 6.0 28 05/03/18 13:32 28 05/03/18 12:00 110 05/03/18 12:00 T-piece 6.0 T-piece 6.0 05/03/18 12:00 98.2 104 26 121/84 (96) 100 Intake and Output 05/03/18 05/04/18 19:00 07:00 Intake Total 1831.5 ml 1212.5 ml Output Total 1500 ml 1400 ml Balance 331.5 ml -187.5 ml Free Water 200 ml IV Total 1031.5 ml 612.5 ml Tube Feeding 600 ml 600 ml Output Urine Total 1500 ml 1400 ml General Appearance: no acute distress HEENT: normocephalic, atraumatic Respiratory/Chest: chest wall non-tender, lungs clear Cardiovascular: normal peripheral pulses, normal rate Abdomen: normal bowel sounds, soft, non tender Extremities: no cyanosis Neurologic/Psychiatric: network intern II-XII grossly normal Lymphatic: no neck adenopathy Microbiology Date/Time Source Procedure Growth Status 05/01/18 18:30 Blood Blood Culture - Preliminary NO GROWTH AFTER 48 HOURS Resulted 05/01/18 18:30 Blood Blood Culture - Final Staphylococcus Capitis Complete Laboratory Tests 05/04/18 03:22: White Blood Count 4.8, Red Blood Count 3.27L, Hemoglobin 10.0L, Hematocrit 28.8L , Mean Corpuscular Volume 88, Mean Corpuscular Hemoglobin 30.7, Mean Corpuscular Hemoglobin Concent 34.9, Red Cell Distribution Width 14.2, Platelet Count 438, Mean Platelet Volume 5.3L, Neutrophils (%) (Auto) 41.9L, Lymphocytes (%) (Auto) 43.8, Monocytes (%) (Auto) 10.9H, Eosinophils (%) (Auto) 2.1, Basophils (%) (Auto) 1.3, Sodium Level 139, Potassium Level 3.7, Chloride Level 104, Carbon Dioxide Level 28, Anion Gap 7, Blood Urea Nitrogen 6L, Creatinine 0.5L, Estimat Glomerular Filtration Rate > 60, Glucose Level 127H, Calcium Level 9.1 Current Medications Medications (Trade) Dose Ordered Sig/Jhonny Route PRN Reason Start Time Stop Time Status Last Admin Dose Admin Acetaminophen (Tylenol) 650 mg Q6H PRN GT Prn Headache/Temp > 101 04/30/18 14:30 05/30/18 14:29 05/01/18 06:25 Acetylcysteine (Mucomyst) 200 mg Q6HRT HHN 05/02/18 19:00 06/01/18 18:59 05/04/18 07:12 Albuterol Sulfate (Proventil) 2.5 mg Q6H PRN HHN Shortness of Breath 04/30/18 14:34 05/05/18 14:33 Baclofen (Lioresal) 5 mg EVERY 12 HOURS GT 04/30/18 21:00 05/30/18 20:59 05/04/18 09:09 Carvedilol (Coreg) 6.25 mg EVERY 12 HOURS ORAL 05/03/18 21:00 06/01/18 20:59 05/04/18 09:09 Cefepime HCl 2 gm/ Dextrose 55 ml @ 110 mls/hr EVERY 12 HOURS IVPB 05/01/18 09:00 05/08/18 08:59 05/04/18 09:08 Furosemide (Lasix) 10 mg EVERY 6 HOURS IV 05/02/18 18:00 06/01/18 17:59 05/04/18 05:49 Heparin Sodium (Porcine) (Heparin 5000 units/ml) 5,000 units EVERY 12 HOURS SUBQ 04/30/18 21:00 05/30/18 20:59 05/04/18 09:11 Levalbuterol HCl (Xopenex) 1.25 mg Q6HRT HHN 05/02/18 19:00 05/07/18 18:59 05/04/18 07:11 Levetiracetam (Keppra) 1,000 mg EVERY 12 HOURS GT 04/30/18 21:00 05/30/18 20:59 05/04/18 09:08 Morphine Sulfate (Morphine Sulfate) 2 mg Q4H PRN IVP For Pain 04/30/18 04:15 05/07/18 04:14 Valproic Acid (Depakene) 250 mg EVERY 12 HOURS GT 04/30/18 21:00 05/30/18 20:59 05/04/18 09:08 Vancomycin HCl (Vanco rx to dose) 1 ea DAILY PRN MISC Per rx protocol 04/30/18 22:15 05/30/18 22:14 Vancomycin HCl 1 gm/Sodium Chloride 275 ml @ 184 mls/hr Q8H IVPB 05/01/18 00:00 05/06/18 00:00 05/04/18 08:57 Addie Lepe MD May 04, 2018 10:55
[2018-05-04 12:00] VITALS: BP 125/77
--- NOTE | 2018-05-04 12:57 | General Surgery Progress Note ---
General Surgery-Progress Note Subjective Symptoms: improved, tolerating diet, BM Additional Comments no acute events. improving. on IV Abx Objective Last 24 Hour Vital Signs Date Time Temp Pulse Resp B/P (MAP) Pulse Ox O2 Delivery O2 Flow Rate FiO2 05/04/18 09:09 105 109/71 05/04/18 08:00 107 05/04/18 08:00 T-piece 6.0 T-piece 6.0 05/04/18 08:00 98.2 105 20 109/71 (84) 99 05/04/18 07:52 77 16 97 T-piece 6.0 28 05/04/18 07:42 28 05/04/18 07:20 T-piece 6.0 28 05/04/18 07:12 97 T-piece 6.0 28 05/04/18 07:12 92 16 97 T-piece 6.0 28 05/04/18 04:00 97.6 92 20 121/71 (88) 98 05/04/18 04:00 T-piece 6.0 T-piece 6.0 05/04/18 04:00 95 05/04/18 01:37 92 18 100 T-piece 6.0 28 05/04/18 01:37 28 05/04/18 01:19 T-piece 6.0 28 05/04/18 01:19 101 18 98 T-piece 6.0 28 05/04/18 01:18 98 T-piece 6.0 28 05/04/18 00:00 T-piece 6.0 T-piece 6.0 05/04/18 00:00 89 05/04/18 00:00 97.2 95 20 105/65 (78) 98 05/03/18 20:37 104 133/84 05/03/18 20:00 98.0 105 20 133/84 (100) 100 05/03/18 20:00 T-piece 6.0 T-piece 6.0 05/03/18 20:00 97 05/03/18 19:07 28 05/03/18 19:07 100 18 100 T-piece 6.0 28 05/03/18 18:47 100 T-piece 6.0 28 05/03/18 18:47 T-piece 6.0 28 05/03/18 18:44 100 18 100 T-piece 6.0 28 05/03/18 16:00 T-piece 6.0 T-piece 6.0 05/03/18 16:00 98 05/03/18 16:00 99.0 98 20 122/79 (93) 96 05/03/18 13:38 101 18 100 T-piece 6.0 28 05/03/18 13:37 T-piece 6.0 28 05/03/18 13:37 98 T-piece 6.0 28 05/03/18 13:32 98 20 98 T-piece 6.0 28 05/03/18 13:32 28 I&O Intake and Output 05/03/18 05/04/18 18:59 06:59 Intake Total 1831.5 ml 1242.5 ml Output Total 1500 ml 1400 ml Balance 331.5 ml -157.5 ml Free Water 200 ml IV Total 1031.5 ml 642.5 ml Tube Feeding 600 ml 600 ml Output Urine Total 1500 ml 1400 ml Dressing: dry Wound: clean Drains: other Cardiovascular: RSR Respiratory: clear Abdomen: soft, flat, non-tender, present bowel sounds Extremities: cyanosis, no edema Laboratory Tests Test 05/04/18 03:22 White Blood Count 4.8 K/UL (4.8-10.8) Red Blood Count 3.27 M/UL (4.70-6.10) L Hemoglobin 10.0 G/DL (14.2-18.0) L Hematocrit 28.8 % (42.0-52.0) L Mean Corpuscular Volume 88 FL (80-99) Mean Corpuscular Hemoglobin 30.7 PG (27.0-31.0) Mean Corpuscular Hemoglobin Concent 34.9 G/DL (32.0-36.0) Red Cell Distribution Width 14.2 % (11.6-14.8) Platelet Count 438 K/UL (150-450) Mean Platelet Volume 5.3 FL (6.5-10.1) L Neutrophils (%) (Auto) 41.9 % (45.0-75.0) L Lymphocytes (%) (Auto) 43.8 % (20.0-45.0) Monocytes (%) (Auto) 10.9 % (1.0-10.0) H Eosinophils (%) (Auto) 2.1 % (0.0-3.0) Basophils (%) (Auto) 1.3 % (0.0-2.0) Sodium Level 139 MMOL/L (136-145) Potassium Level 3.7 MMOL/L (3.5-5.1) Chloride Level 104 MMOL/L (98-107) Carbon Dioxide Level 28 MMOL/L (21-32) Anion Gap 7 mmol/L (5-15) Blood Urea Nitrogen 6 mg/dL (7-18) L Creatinine 0.5 MG/DL (0.55-1.30) L Estimat Glomerular Filtration Rate > 60 mL/min (>60) Glucose Level 127 MG/DL (74-106) H Calcium Level 9.1 MG/DL (8.5-10.1) Plan Problems: (1) Sepsis Assessment & Plan: leukocytosis resolved wounds stable improving cont feeds Abx as per ID (2) Dry gangrene Assessment & Plan: patient presents with multiple DTI bilateral heel DTI left distal great toe DTI with likely prior debridement currently with dry gangrene at tip right distal great toe DTI with dry gangrene at lateral edge resolved sacral wound now with scar tissue lower extremity contraction all wounds present upon admission and will be cared for during hospital stay no acute surgical intervention necessary and unlikely etiology of sepsis skin protectant to bilateral heels and great toe DTI. wash with NS, apply skin protectant, apply foam dressings foam sacral dressing protective air pressure release mattress heel protectors turn q2h thank you. will follow with recs. Panda Nur May 04, 2018 12:57
--- NOTE | 2018-05-04 13:53 | General Progress Note ---
Assessment/Plan Problem List: (1) UTI (urinary tract infection) ICD Codes: N39.0 - Urinary tract infection, site not specified SNOMED: 24971194 (2) Anemia ICD Codes: D64.9 - Anemia, unspecified SNOMED: 254247165 (3) HTN (hypertension) ICD Codes: I10 - Essential (primary) hypertension SNOMED: 56798792 (4) Respiratory distress ICD Codes: R06.03 - Acute respiratory distress SNOMED: 540485018 (5) Tracheostomy care ICD Codes: Z43.0 - Encounter for attention to tracheostomy SNOMED: 087041446 (6) Sepsis ICD Codes: A41.9 - Sepsis, unspecified organism SNOMED: 31050510 Qualifiers: Qualified Codes: A41.9 - Sepsis, unspecified organism (7) Pneumonia ICD Codes: J18.9 - Pneumonia, unspecified organism SNOMED: 707101447 Qualifiers: Qualified Codes: J18.1 - Lobar pneumonia, unspecified organism (8) Chronic respiratory failure ICD Codes: J96.10 - Chronic respiratory failure, unspecified whether with hypoxia or hypercapnia SNOMED: 49784835 Status: stable, progressing Assessment/Plan vent abx cbc bmp am dc plan snf if clear Subjective Constitutional: Reports: weakness Allergies: Coded Allergies: No Known Allergies (Unverified , 03/20/18) All Systems: reviewed and negative except above Subjective trach vent altered Objective Last 24 Hour Vital Signs Date Time Temp Pulse Resp B/P (MAP) Pulse Ox O2 Delivery O2 Flow Rate FiO2 05/04/18 12:00 98.6 97 20 125/77 (93) 99 05/04/18 12:00 T-piece 6.0 T-piece 6.0 05/04/18 09:09 105 109/71 05/04/18 08:00 107 05/04/18 08:00 T-piece 6.0 T-piece 6.0 05/04/18 08:00 98.2 105 20 109/71 (84) 99 05/04/18 07:52 77 16 97 T-piece 6.0 28 05/04/18 07:42 28 05/04/18 07:20 T-piece 6.0 28 05/04/18 07:12 97 T-piece 6.0 28 05/04/18 07:12 92 16 97 T-piece 6.0 28 05/04/18 04:00 97.6 92 20 121/71 (88) 98 05/04/18 04:00 T-piece 6.0 T-piece 6.0 05/04/18 04:00 95 05/04/18 01:37 92 18 100 T-piece 6.0 28 05/04/18 01:37 28 05/04/18 01:19 T-piece 6.0 28 05/04/18 01:19 101 18 98 T-piece 6.0 28 05/04/18 01:18 98 T-piece 6.0 28 05/04/18 00:00 T-piece 6.0 T-piece 6.0 05/04/18 00:00 89 05/04/18 00:00 97.2 95 20 105/65 (78) 98 05/03/18 20:37 104 133/84 05/03/18 20:00 98.0 105 20 133/84 (100) 100 05/03/18 20:00 T-piece 6.0 T-piece 6.0 05/03/18 20:00 97 05/03/18 19:07 28 05/03/18 19:07 100 18 100 T-piece 6.0 28 05/03/18 18:47 100 T-piece 6.0 28 05/03/18 18:47 T-piece 6.0 28 05/03/18 18:44 100 18 100 T-piece 6.0 28 05/03/18 16:00 T-piece 6.0 T-piece 6.0 05/03/18 16:00 98 05/03/18 16:00 99.0 98 20 122/79 (93) 96 Intake and Output 05/03/18 05/04/18 18:59 06:59 Intake Total 1831.5 ml 1242.5 ml Output Total 1500 ml 1400 ml Balance 331.5 ml -157.5 ml Free Water 200 ml IV Total 1031.5 ml 642.5 ml Tube Feeding 600 ml 600 ml Output Urine Total 1500 ml 1400 ml Laboratory Tests 05/04/18 03:22: White Blood Count 4.8, Red Blood Count 3.27L, Hemoglobin 10.0L, Hematocrit 28.8L , Mean Corpuscular Volume 88, Mean Corpuscular Hemoglobin 30.7, Mean Corpuscular Hemoglobin Concent 34.9, Red Cell Distribution Width 14.2, Platelet Count 438, Mean Platelet Volume 5.3L, Neutrophils (%) (Auto) 41.9L, Lymphocytes (%) (Auto) 43.8, Monocytes (%) (Auto) 10.9H, Eosinophils (%) (Auto) 2.1, Basophils (%) (Auto) 1.3, Sodium Level 139, Potassium Level 3.7, Chloride Level 104, Carbon Dioxide Level 28, Anion Gap 7, Blood Urea Nitrogen 6L, Creatinine 0.5L, Estimat Glomerular Filtration Rate > 60, Glucose Level 127H, Calcium Level 9.1 Height (Feet): 5 Height (Inches): 6.00 Weight (Pounds): 170 General Appearance: lethargic EENT: normal ENT inspection Neck: normal alignment Cardiovascular: normal peripheral pulses, normal rate, regular rhythm Respiratory/Chest: chest wall non-tender, lungs clear, normal breath sounds Abdomen: normal bowel sounds, non tender, soft Extremities: normal inspection Edema: no edema noted Arm (L), no edema noted Arm (R), no edema noted Leg (L), no edema noted Leg (R), no edema noted Pedal (L), no edema noted Pedal (R), no edema noted Generalized Neurologic: motor weakness Skin: normal pigmentation, warm/dry Marcellus Pa DO May 04, 2018 13:53
--- NOTE | 2018-05-04 14:06 | Diagnostic Imaging Report ---
Indication: Dyspnea Comparison: 05/02/2018 A single view chest radiograph was obtained. Findings: Cardiomediastinal appearance is within normal limits for age. There is a right-sided GUEST EXPERIENCE CAPTAIN shunt noted. The lungs are clear. Pulmonary vascularity is appropriate. The diaphragmatic contour is smooth and costophrenic angles are sharp. No pleural effusions are identified. The bones are unremarkable. Impression: No acute findings
--- NOTE | 2018-05-04 14:30 | Nephrology Progress Note ---
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 Anemia Low Albumin Sepsis Plan DC lasix coreg monitor serum Na per consultants Subjective ROS Limited/Unobtainable: Yes Objective Objective Last 24 Hour Vital Signs Date Time Temp Pulse Resp B/P (MAP) Pulse Ox O2 Delivery O2 Flow Rate FiO2 05/04/18 12:00 98.6 97 20 125/77 (93) 99 05/04/18 12:00 T-piece 6.0 T-piece 6.0 05/04/18 09:09 105 109/71 05/04/18 08:00 107 05/04/18 08:00 T-piece 6.0 T-piece 6.0 05/04/18 08:00 98.2 105 20 109/71 (84) 99 05/04/18 07:52 77 16 97 T-piece 6.0 28 05/04/18 07:42 28 05/04/18 07:20 T-piece 6.0 28 05/04/18 07:12 97 T-piece 6.0 28 05/04/18 07:12 92 16 97 T-piece 6.0 28 05/04/18 04:00 97.6 92 20 121/71 (88) 98 05/04/18 04:00 T-piece 6.0 T-piece 6.0 05/04/18 04:00 95 05/04/18 01:37 92 18 100 T-piece 6.0 28 05/04/18 01:37 28 05/04/18 01:19 T-piece 6.0 28 05/04/18 01:19 101 18 98 T-piece 6.0 28 05/04/18 01:18 98 T-piece 6.0 28 05/04/18 00:00 T-piece 6.0 T-piece 6.0 05/04/18 00:00 89 05/04/18 00:00 97.2 95 20 105/65 (78) 98 05/03/18 20:37 104 133/84 05/03/18 20:00 98.0 105 20 133/84 (100) 100 05/03/18 20:00 T-piece 6.0 T-piece 6.0 05/03/18 20:00 97 05/03/18 19:07 28 05/03/18 19:07 100 18 100 T-piece 6.0 28 05/03/18 18:47 100 T-piece 6.0 28 05/03/18 18:47 T-piece 6.0 28 05/03/18 18:44 100 18 100 T-piece 6.0 28 05/03/18 16:00 T-piece 6.0 T-piece 6.0 05/03/18 16:00 98 05/03/18 16:00 99.0 98 20 122/79 (93) 96 Intake and Output 05/03/18 05/04/18 18:59 06:59 Intake Total 1831.5 ml 1242.5 ml Output Total 1500 ml 1400 ml Balance 331.5 ml -157.5 ml Free Water 200 ml IV Total 1031.5 ml 642.5 ml Tube Feeding 600 ml 600 ml Output Urine Total 1500 ml 1400 ml Laboratory Tests 05/04/18 03:22: White Blood Count 4.8, Red Blood Count 3.27L, Hemoglobin 10.0L, Hematocrit 28.8L , Mean Corpuscular Volume 88, Mean Corpuscular Hemoglobin 30.7, Mean Corpuscular Hemoglobin Concent 34.9, Red Cell Distribution Width 14.2, Platelet Count 438, Mean Platelet Volume 5.3L, Neutrophils (%) (Auto) 41.9L, Lymphocytes (%) (Auto) 43.8, Monocytes (%) (Auto) 10.9H, Eosinophils (%) (Auto) 2.1, Basophils (%) (Auto) 1.3, Sodium Level 139, Potassium Level 3.7, Chloride Level 104, Carbon Dioxide Level 28, Anion Gap 7, Blood Urea Nitrogen 6L, Creatinine 0.5L, Estimat Glomerular Filtration Rate > 60, Glucose Level 127H, Calcium Level 9.1 Height (Feet): 5 Height (Inches): 6.00 Weight (Pounds): 170 General Appearance: no apparent distress Cardiovascular: tachycardia Respiratory/Chest: decreased breath sounds Objective no change Chaz Acosta MD May 04, 2018 14:30
[2018-05-04 16:00] VITALS: BP 115/81
[2018-05-04] MEDS ORDERED: NS 275ml ONE (18:05)
[2018-05-04] MEDS ORDERED: Tubing IV Secondary IV ONE (18:05)
[2018-05-04 20:00] VITALS: BP 134/84
[2018-05-05] VITALS: BP 118/64
[2018-05-05] MEDS: Vancomycin 1 GM in NS 275 ML IVPB SCH ×2 (00:21→08:47)
[2018-05-05] MEDS: Levalbuterol Inh UD 1.25mg/0.5ml HHN SCH ×3 (01:59→12:46)
[2018-05-05] MEDS: Acetylcysteine 20% Soln 4ml HHN SCH ×3 (01:59→12:46)
[2018-05-05 04:00] VITALS: BP 114/69
[2018-05-05 06:59] LABS: ANION GAP 9 mmol/L (5-15); BLOOD UREA NITROGEN 11 mg/dL (7-18); CALCIUM 9.3 MG/DL (8.5-10.1); CARBON DIOXIDE 29 MMOL/L (21-32); CHLORIDE 102 MMOL/L (98-107); CREATININE 0.5 MG/DL (0.55-1.30); POTASSIUM 3.4 MMOL/L (3.5-5.1); SODIUM 140 MMOL/L (136-145)
[2018-05-05 07:18] LABS: BASOPHILS % (AUTO) 0.7 % (0.0-2.0); EOSINOPHILS % (AUTO) 1.2 % (0.0-3.0); HEMATOCRIT 31.9 % (42.0-52.0); HEMOGLOBIN 10.5 G/DL (14.2-18.0); LYMPHOCYTES % (AUTO) 34.2 % (20.0-45.0); MEAN CORPUSCULAR VOLUME 89 FL (80-99); PLATELET COUNT 500 K/UL (150-450); RED CELL DISTRIBUTION WIDTH 14.6 % (11.6-14.8); WHITE BLOOD COUNT 7.2 K/UL (4.8-10.8)
--- NOTE | 2018-05-05 07:50 | Cardiology Report ---
APPROVED REPORT EXAM: Two-dimensional and M-mode echocardiogram with Doppler and color Doppler. INDICATION ENDOCARDITIS M-Mode DIMENSIONS IVSd0.7 (0.7-1.1cm)Left Atrium (MM)2.6 (1.6-4.0cm) LVDd4.1 (3.5-5.6cm)Aortic Root3.3 (2.0-3.7cm) PWd1.0 (0.7-1.1cm)Aortic Cusp Exc.1.6 (1.5-2.0cm) IVSs1.6 cm LVDs2.7 (2.5-4.0cm) PWs1.2 cm Technically difficult study due to pts position . Study quality precludes accurate assessment of regional wall motion. Normal left ventricular chamber size, systolic function and wall motion to extent visualized. No evidence of left ventricular hypertrophy . No evidence of pericardial effusion. All other chamber sizes are within normal limits. Focal aortic valve sclerosis with adequate cusp excursion. Mildly Thickened mitral valve leaflets with normal excursion. Mildly Mitral annulus and aortic root calcification. Pulmonic valve not well visualized. Normal tricuspid valve structure. IVC at 1.5 cm with physiologic collapse suggestive of increased RA pressure. A color flow and spectral Doppler study was performed and revealed: No aortic insufficiency . Trace mitral regurgitation. Mitral diastolic velocities suggest reduced left ventricular relaxation c/w mild LV diastolic dysfunction (Grade I ). Trace tricuspid regurgitation. Tricuspid systolic velocities suggests peak right ventricular systolic pressure of 16mmHg.
--- NOTE | 2018-05-05 08:45 | Pulmonology Progress Note ---
Assessment/Plan Problems: (1) Sepsis (2) Chronic respiratory failure (3) Tracheostomy care (4) Paraplegia (5) Injury brain, traumatic (6) Feeding by G-tube (7) Chronic hepatitis C without mention of hepatic coma Assessment/Plan afebrile BC positive for Staph capitis twice butt cultures on Vancomycin and cefepime iv abx gtube feeding CXR is better dvt prophylaxis check electrolytes Subjective ROS Limited/Unobtainable: Yes Interval Events: looks comfortable, Allergies: Coded Allergies: No Known Allergies (Unverified , 03/20/18) Objective Last 24 Hour Vital Signs Date Time Temp Pulse Resp B/P (MAP) Pulse Ox O2 Delivery O2 Flow Rate FiO2 05/05/18 07:03 100 20 100 T-piece 6.0 05/05/18 06:54 28 05/05/18 06:53 T-piece 6.0 05/05/18 06:53 105 20 96 T-piece 6.0 05/05/18 06:52 96 T-piece 6.0 05/05/18 04:00 98.9 107 20 114/69 (84) 96 05/05/18 04:00 T-piece 6.0 T-piece 6.0 05/05/18 04:00 108 05/05/18 02:21 84 18 100 T-piece 6.0 05/05/18 01:59 28 05/05/18 01:59 T-piece 6.0 05/05/18 01:59 78 18 T-piece 6.0 28 05/05/18 01:59 78 18 100 T-piece 6.0 05/05/18 01:59 100 T-piece 6.0 05/05/18 00:00 98.3 108 22 118/64 (82) 100 05/05/18 00:00 T-piece 6.0 T-piece 6.0 05/05/18 00:00 104 05/04/18 20:59 110 18 100 T-piece 6.0 05/04/18 20:59 28 05/04/18 20:52 T-piece 6.0 28 05/04/18 20:52 100 T-piece 6.0 28 05/04/18 20:50 106 18 100 T-piece 6.0 05/04/18 20:10 115 134/86 05/04/18 20:00 99.2 115 20 134/84 (101) 100 05/04/18 20:00 111 05/04/18 20:00 T-piece 6.0 T-piece 6.0 05/04/18 16:00 T-piece 6.0 T-piece 6.0 05/04/18 16:00 98.2 115 18 115/81 (92) 99 05/04/18 16:00 102 05/04/18 15:53 107 18 100 T-piece 6.0 28 05/04/18 15:43 95 T-piece 6.0 28 05/04/18 15:43 28 05/04/18 15:43 103 18 95 T-piece 6.0 28 05/04/18 15:43 T-piece 6.0 28 05/04/18 12:00 98.6 97 20 125/77 (93) 99 05/04/18 12:00 T-piece 6.0 T-piece 6.0 05/04/18 12:00 94 05/04/18 09:09 105 109/71 Intake and Output 05/04/18 05/05/18 19:00 07:00 Intake Total 920 ml 800 ml Output Total 2100 ml 350 ml Balance -1180 ml 450 ml Free Water 200 ml 200 ml Tube Feeding 600 ml 600 ml Other 120 ml Output Urine Total 2100 ml 350 ml HEENT: normocephalic, status post trach Respiratory/Chest: chest wall non-tender, lungs clear Cardiovascular: normal peripheral pulses, normal rate Abdomen: normal bowel sounds, soft, non tender Genitourinary: normal external genitalia Extremities: no cyanosis Skin: no rash 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/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 normal Lymphatic: no neck adenopathy Musculoskeletal: normal muscle bulk Laboratory Tests 05/05/18 06:02: White Blood Count 7.2, Red Blood Count 3.60L, Hemoglobin 10.5L, Hematocrit 31.9L , Mean Corpuscular Volume 89, Mean Corpuscular Hemoglobin 29.1, Mean Corpuscular Hemoglobin Concent 32.8, Red Cell Distribution Width 14.6, Platelet Count 500H, Mean Platelet Volume 5.4L, Neutrophils (%) (Auto) 55.0, Lymphocytes (%) (Auto) 34.2, Monocytes (%) (Auto) 9.0, Eosinophils (%) (Auto) 1.2, Basophils (%) (Auto) 0.7, Sodium Level 140, Potassium Level 3.4L, Chloride Level 102, Carbon Dioxide Level 29, Anion Gap 9, Blood Urea Nitrogen 11, Creatinine 0.5L, Estimat Glomerular Filtration Rate > 60, Glucose Level 124H, Calcium Level 9.3 Current Medications Medications (Trade) Dose Ordered Sig/Jhonny Route PRN Reason Start Time Stop Time Status Last Admin Dose Admin Acetaminophen (Tylenol) 650 mg Q6H PRN GT Prn Headache/Temp > 101 04/30/18 14:30 05/30/18 14:29 05/01/18 06:25 Acetylcysteine (Mucomyst) 200 mg Q6HRT HHN 05/02/18 19:00 06/01/18 18:59 05/05/18 06:54 Albuterol Sulfate (Proventil) 2.5 mg Q6H PRN HHN Shortness of Breath 04/30/18 14:34 05/05/18 14:33 Baclofen (Lioresal) 5 mg EVERY 12 HOURS GT 04/30/18 21:00 05/30/18 20:59 05/04/18 20:10 Carvedilol (Coreg) 6.25 mg EVERY 12 HOURS ORAL 05/03/18 21:00 06/01/18 20:59 05/04/18 20:10 Cefepime HCl 2 gm/ Dextrose 55 ml @ 110 mls/hr EVERY 12 HOURS IVPB 05/01/18 09:00 05/08/18 08:59 05/04/18 20:09 Heparin Sodium (Porcine) (Heparin 5000 units/ml) 5,000 units EVERY 12 HOURS SUBQ 04/30/18 21:00 05/30/18 20:59 05/04/18 20:11 Levalbuterol HCl (Xopenex) 1.25 mg Q6HRT HHN 05/02/18 19:00 05/07/18 18:59 05/05/18 06:54 Levetiracetam (Keppra) 1,000 mg EVERY 12 HOURS GT 04/30/18 21:00 05/30/18 20:59 05/04/18 20:09 Morphine Sulfate (Morphine Sulfate) 2 mg Q4H PRN IVP For Pain 04/30/18 04:15 05/07/18 04:14 Valproic Acid (Depakene) 250 mg EVERY 12 HOURS GT 04/30/18 21:00 05/30/18 20:59 05/04/18 20:09 Vancomycin HCl (Vanco rx to dose) 1 ea DAILY PRN MISC Per rx protocol 04/30/18 22:15 05/30/18 22:14 Vancomycin HCl 1 gm/Sodium Chloride 275 ml @ 184 mls/hr Q8H IVPB 05/01/18 00:00 05/06/18 00:00 05/05/18 00:21 Addie Lepe MD May 05, 2018 08:45
[2018-05-05 09:00] VITALS: BP 102/70
[2018-05-05] MEDS: Valproic Acid 250mg/5ml Liquid GT SCH (09:03)
[2018-05-05] MEDS: levETIRAcetam 500mg/5ml Liquid GT SCH (09:04)
[2018-05-05] MEDS: Carvedilol 6.25mg Tab ORAL SCH (09:04)
[2018-05-05] MEDS: Heparin 5000 units/ml inj SUBQ SCH (09:07)
[2018-05-05] MEDS: Cefepime HCl 2 GM in D5W 55 ML IVPB SCH (09:30)
[2018-05-05 12:00] VITALS: BP 107/72
--- NOTE | 2018-05-05 12:59 | General Progress Note ---
Assessment/Plan Problem List: (1) UTI (urinary tract infection) ICD Codes: N39.0 - Urinary tract infection, site not specified SNOMED: 58246153 (2) Anemia ICD Codes: D64.9 - Anemia, unspecified SNOMED: 646046774 (3) HTN (hypertension) ICD Codes: I10 - Essential (primary) hypertension SNOMED: 23664035 (4) Respiratory distress ICD Codes: R06.03 - Acute respiratory distress SNOMED: 358779543 (5) Tracheostomy care ICD Codes: Z43.0 - Encounter for attention to tracheostomy SNOMED: 360939433 (6) Sepsis ICD Codes: A41.9 - Sepsis, unspecified organism SNOMED: 61356781 Qualifiers: Qualified Codes: A41.9 - Sepsis, unspecified organism (7) Pneumonia ICD Codes: J18.9 - Pneumonia, unspecified organism SNOMED: 853134230 Qualifiers: Qualified Codes: J18.1 - Lobar pneumonia, unspecified organism (8) Chronic respiratory failure ICD Codes: J96.10 - Chronic respiratory failure, unspecified whether with hypoxia or hypercapnia SNOMED: 88995536 Status: stable, progressing Assessment/Plan vent abx cbc bmp am dc plan snf if clear Subjective Constitutional: Reports: weakness Allergies: Coded Allergies: No Known Allergies (Unverified , 03/20/18) All Systems: reviewed and negative except above Subjective trach vent altered Objective Last 24 Hour Vital Signs Date Time Temp Pulse Resp B/P (MAP) Pulse Ox O2 Delivery O2 Flow Rate FiO2 05/05/18 12:49 T-piece 6.0 05/05/18 12:48 112 20 98 T-piece 6.0 05/05/18 12:48 98 T-piece 6.0 05/05/18 12:47 28 05/05/18 09:16 110 05/05/18 09:04 104 05/05/18 09:00 98.6 104 18 102/70 (81) 97 05/05/18 07:03 100 20 100 T-piece 6.0 05/05/18 06:54 28 05/05/18 06:53 T-piece 6.0 05/05/18 06:53 105 20 96 T-piece 6.0 05/05/18 06:52 96 T-piece 6.0 05/05/18 04:00 98.9 107 20 114/69 (84) 96 05/05/18 04:00 T-piece 6.0 T-piece 6.0 05/05/18 04:00 108 05/05/18 02:21 84 18 100 T-piece 6.0 28 05/05/18 01:59 28 05/05/18 01:59 T-piece 6.0 28 05/05/18 01:59 78 18 T-piece 6.0 28 05/05/18 01:59 78 18 100 T-piece 6.0 28 05/05/18 01:59 100 T-piece 6.0 28 05/05/18 00:00 98.3 108 22 118/64 (82) 100 05/05/18 00:00 T-piece 6.0 T-piece 6.0 05/05/18 00:00 104 05/04/18 20:59 110 18 100 T-piece 6.0 28 05/04/18 20:59 28 05/04/18 20:52 T-piece 6.0 28 05/04/18 20:52 100 T-piece 6.0 28 05/04/18 20:50 106 18 100 T-piece 6.0 28 05/04/18 20:10 115 134/86 05/04/18 20:00 99.2 115 20 134/84 (101) 100 05/04/18 20:00 111 05/04/18 20:00 T-piece 6.0 T-piece 6.0 05/04/18 16:00 T-piece 6.0 T-piece 6.0 05/04/18 16:00 98.2 115 18 115/81 (92) 99 05/04/18 16:00 102 05/04/18 15:53 107 18 100 T-piece 6.0 28 05/04/18 15:43 95 T-piece 6.0 28 05/04/18 15:43 28 05/04/18 15:43 103 18 95 T-piece 6.0 28 05/04/18 15:43 T-piece 6.0 28 Intake and Output 05/04/18 05/05/18 19:00 07:00 Intake Total 920 ml 800 ml Output Total 2100 ml 350 ml Balance -1180 ml 450 ml Free Water 200 ml 200 ml Tube Feeding 600 ml 600 ml Other 120 ml Output Urine Total 2100 ml 350 ml Laboratory Tests 05/05/18 06:02: White Blood Count 7.2, Red Blood Count 3.60L, Hemoglobin 10.5L, Hematocrit 31.9L , Mean Corpuscular Volume 89, Mean Corpuscular Hemoglobin 29.1, Mean Corpuscular Hemoglobin Concent 32.8, Red Cell Distribution Width 14.6, Platelet Count 500H, Mean Platelet Volume 5.4L, Neutrophils (%) (Auto) 55.0, Lymphocytes (%) (Auto) 34.2, Monocytes (%) (Auto) 9.0, Eosinophils (%) (Auto) 1.2, Basophils (%) (Auto) 0.7, Sodium Level 140, Potassium Level 3.4L, Chloride Level 102, Carbon Dioxide Level 29, Anion Gap 9, Blood Urea Nitrogen 11, Creatinine 0.5L, Estimat Glomerular Filtration Rate > 60, Glucose Level 124H, Calcium Level 9.3 Height (Feet): 5 Height (Inches): 6.00 Weight (Pounds): 170 General Appearance: lethargic EENT: normal ENT inspection Neck: normal alignment Cardiovascular: normal peripheral pulses, normal rate, regular rhythm Respiratory/Chest: chest wall non-tender, lungs clear, normal breath sounds Abdomen: normal bowel sounds, non tender, soft Extremities: normal inspection Edema: no edema noted Arm (L), no edema noted Arm (R), no edema noted Leg (L), no edema noted Leg (R), no edema noted Pedal (L), no edema noted Pedal (R), no edema noted Generalized Neurologic: motor weakness Skin: normal pigmentation, warm/dry Marcellus Pa DO May 05, 2018 12:59
--- NOTE | 2018-05-05 13:57 | Infectious Diseases Prog Note ---
Assessment/Plan Assessment/Plan ASSESSMENT: Probable bacteremia CoNS (05/01 and 04/29 ), rPT BCx : 2/: NGTD Fever, Sp Probable UTI UCx : PSA Probable pneumonia (healthcare-associated pneumonia) (despite of unremarkable chest x-ray) SCX: PSA History of chronic hepatitis C Diarrhea C Diff : Neg 2DEcho : No Veg Anoxic brain damage. Quadriplegia. Seizure disorder. Hypertension. Status post trach and PEG. PLAN: Continue the patient on vancomycin d# 6/7 and cefepime d# 6 / 14 ( UTI and Pneum) Monitor CBC. Monitor BMP. Monitor cultures (blood, urine, and sputum), Rpt Blood Cx Monitor chest x-ray Subjective Allergies: Coded Allergies: No Known Allergies (Unverified , 03/20/18) Subjective afebrile non verbal Diarrhea Objective Vital Signs Last 24 Hour Vital Signs Date Time Temp Pulse Resp B/P (MAP) Pulse Ox O2 Delivery O2 Flow Rate FiO2 05/05/18 13:13 111 20 99 T-piece 6.0 28 05/05/18 12:49 T-piece 6.0 28 05/05/18 12:48 112 20 98 T-piece 6.0 28 05/05/18 12:48 98 T-piece 6.0 28 05/05/18 12:47 28 05/05/18 12:00 99.3 116 18 107/72 (84) 97 05/05/18 12:00 T-piece 6.0 T-piece 6.0 05/05/18 09:16 110 05/05/18 09:04 104 05/05/18 09:00 98.6 104 18 102/70 (81) 97 05/05/18 08:00 T-piece 6.0 T-piece 6.0 05/05/18 07:03 100 20 100 T-piece 6.0 28 05/05/18 06:54 28 05/05/18 06:53 T-piece 6.0 28 05/05/18 06:53 105 20 96 T-piece 6.0 28 05/05/18 06:52 96 T-piece 6.0 28 05/05/18 04:00 98.9 107 20 114/69 (84) 96 05/05/18 04:00 T-piece 6.0 T-piece 6.0 05/05/18 04:00 108 05/05/18 02:21 84 18 100 T-piece 6.0 28 05/05/18 01:59 28 05/05/18 01:59 T-piece 6.0 28 05/05/18 01:59 78 18 T-piece 6.0 28 05/05/18 01:59 78 18 100 T-piece 6.0 28 05/05/18 01:59 100 T-piece 6.0 28 05/05/18 00:00 98.3 108 22 118/64 (82) 100 05/05/18 00:00 T-piece 6.0 T-piece 6.0 05/05/18 00:00 104 05/04/18 20:59 110 18 100 T-piece 6.0 28 05/04/18 20:59 28 05/04/18 20:52 T-piece 6.0 28 05/04/18 20:52 100 T-piece 6.0 28 05/04/18 20:50 106 18 100 T-piece 6.0 28 05/04/18 20:10 115 134/86 05/04/18 20:00 99.2 115 20 134/84 (101) 100 05/04/18 20:00 111 05/04/18 20:00 T-piece 6.0 T-piece 6.0 05/04/18 16:00 T-piece 6.0 T-piece 6.0 05/04/18 16:00 98.2 115 18 115/81 (92) 99 05/04/18 16:00 102 05/04/18 15:53 107 18 100 T-piece 6.0 28 05/04/18 15:43 95 T-piece 6.0 28 05/04/18 15:43 28 05/04/18 15:43 103 18 95 T-piece 6.0 28 05/04/18 15:43 T-piece 6.0 28 Height (Feet): 5 Height (Inches): 6.00 Weight (Pounds): 179 HEENT: anicteric Respiratory/Chest: normal breath sounds Cardiovascular: normal peripheral pulses Abdomen: soft, non tender Laboratory Tests Test 05/05/18 06:02 White Blood Count 7.2 K/UL (4.8-10.8) Red Blood Count 3.60 M/UL (4.70-6.10) L Hemoglobin 10.5 G/DL (14.2-18.0) L Hematocrit 31.9 % (42.0-52.0) L Mean Corpuscular Volume 89 FL (80-99) Mean Corpuscular Hemoglobin 29.1 PG (27.0-31.0) Mean Corpuscular Hemoglobin Concent 32.8 G/DL (32.0-36.0) Red Cell Distribution Width 14.6 % (11.6-14.8) Platelet Count 500 K/UL (150-450) H Mean Platelet Volume 5.4 FL (6.5-10.1) L Neutrophils (%) (Auto) 55.0 % (45.0-75.0) Lymphocytes (%) (Auto) 34.2 % (20.0-45.0) Monocytes (%) (Auto) 9.0 % (1.0-10.0) Eosinophils (%) (Auto) 1.2 % (0.0-3.0) Basophils (%) (Auto) 0.7 % (0.0-2.0) Sodium Level 140 MMOL/L (136-145) Potassium Level 3.4 MMOL/L (3.5-5.1) L Chloride Level 102 MMOL/L (98-107) Carbon Dioxide Level 29 MMOL/L (21-32) Anion Gap 9 mmol/L (5-15) Blood Urea Nitrogen 11 mg/dL (7-18) Creatinine 0.5 MG/DL (0.55-1.30) L Estimat Glomerular Filtration Rate > 60 mL/min (>60) Glucose Level 124 MG/DL (74-106) H Calcium Level 9.3 MG/DL (8.5-10.1) Current Medications Medications (Trade) Dose Ordered Sig/Jhonny Route PRN Reason Start Time Stop Time Status Last Admin Dose Admin Acetaminophen (Tylenol) 650 mg Q6H PRN GT Prn Headache/Temp > 101 04/30/18 14:30 05/30/18 14:29 05/01/18 06:25 Acetylcysteine (Mucomyst) 200 mg Q6HRT HHN 05/02/18 19:00 06/01/18 18:59 05/05/18 12:46 Albuterol Sulfate (Proventil) 2.5 mg Q6H PRN HHN Shortness of Breath 04/30/18 14:34 05/05/18 14:33 Baclofen (Lioresal) 5 mg EVERY 12 HOURS GT 04/30/18 21:00 05/30/18 20:59 05/05/18 09:04 Carvedilol (Coreg) 6.25 mg EVERY 12 HOURS ORAL 05/03/18 21:00 06/01/18 20:59 05/05/18 09:04 Cefepime HCl 2 gm/ Dextrose 55 ml @ 110 mls/hr EVERY 12 HOURS IVPB 05/01/18 09:00 05/08/18 08:59 05/05/18 09:30 Heparin Sodium (Porcine) (Heparin 5000 units/ml) 5,000 units EVERY 12 HOURS SUBQ 04/30/18 21:00 05/30/18 20:59 05/05/18 09:07 Levalbuterol HCl (Xopenex) 1.25 mg Q6HRT HHN 05/02/18 19:00 05/07/18 18:59 05/05/18 12:46 Levetiracetam (Keppra) 1,000 mg EVERY 12 HOURS GT 04/30/18 21:00 05/30/18 20:59 05/05/18 09:04 Morphine Sulfate (Morphine Sulfate) 2 mg Q4H PRN IVP For Pain 04/30/18 04:15 05/07/18 04:14 Valproic Acid (Depakene) 250 mg EVERY 12 HOURS GT 04/30/18 21:00 05/30/18 20:59 05/05/18 09:03 Vancomycin HCl (Vanco rx to dose) 1 ea DAILY PRN MISC Per rx protocol 04/30/18 22:15 05/30/18 22:14 Vancomycin HCl 1 gm/Sodium Chloride 275 ml @ 184 mls/hr Q8H IVPB 05/01/18 00:00 05/06/18 00:00 05/05/18 08:47 Roosevelt Echeverria MD May 05, 2018 13:57
--- NOTE | 2018-05-05 14:56 | Nephrology Progress Note ---
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 Anemia Low Albumin Sepsis Plan DC lasix coreg monitor serum Na per consultants Subjective ROS Limited/Unobtainable: Yes Objective Objective Last 24 Hour Vital Signs Date Time Temp Pulse Resp B/P (MAP) Pulse Ox O2 Delivery O2 Flow Rate FiO2 05/05/18 13:13 111 20 99 T-piece 6.0 28 05/05/18 12:49 T-piece 6.0 28 05/05/18 12:48 112 20 98 T-piece 6.0 28 05/05/18 12:48 98 T-piece 6.0 28 05/05/18 12:47 28 05/05/18 12:00 99.3 116 18 107/72 (84) 97 05/05/18 12:00 T-piece 6.0 T-piece 6.0 05/05/18 09:16 110 05/05/18 09:04 104 05/05/18 09:00 98.6 104 18 102/70 (81) 97 05/05/18 08:00 T-piece 6.0 T-piece 6.0 05/05/18 07:03 100 20 100 T-piece 6.0 05/05/18 06:54 28 05/05/18 06:53 T-piece 6.0 28 05/05/18 06:53 105 20 96 T-piece 6.0 28 05/05/18 06:52 96 T-piece 6.0 28 05/05/18 04:00 98.9 107 20 114/69 (84) 96 05/05/18 04:00 T-piece 6.0 T-piece 6.0 05/05/18 04:00 108 05/05/18 02:21 84 18 100 T-piece 6.0 28 05/05/18 01:59 28 05/05/18 01:59 T-piece 6.0 28 05/05/18 01:59 78 18 T-piece 6.0 28 05/05/18 01:59 78 18 100 T-piece 6.0 28 05/05/18 01:59 100 T-piece 6.0 28 05/05/18 00:00 98.3 108 22 118/64 (82) 100 05/05/18 00:00 T-piece 6.0 T-piece 6.0 05/05/18 00:00 104 05/04/18 20:59 110 18 100 T-piece 6.0 28 05/04/18 20:59 28 05/04/18 20:52 T-piece 6.0 28 05/04/18 20:52 100 T-piece 6.0 28 05/04/18 20:50 106 18 100 T-piece 6.0 28 05/04/18 20:10 115 134/86 05/04/18 20:00 99.2 115 20 134/84 (101) 100 05/04/18 20:00 111 05/04/18 20:00 T-piece 6.0 T-piece 6.0 05/04/18 16:00 T-piece 6.0 T-piece 6.0 05/04/18 16:00 98.2 115 18 115/81 (92) 99 05/04/18 16:00 102 05/04/18 15:53 107 18 100 T-piece 6.0 28 05/04/18 15:43 95 T-piece 6.0 28 05/04/18 15:43 28 05/04/18 15:43 103 18 95 T-piece 6.0 28 05/04/18 15:43 T-piece 6.0 28 Intake and Output 05/04/18 05/05/18 18:59 06:59 Intake Total 920 ml 800 ml Output Total 2100 ml 350 ml Balance -1180 ml 450 ml Free Water 200 ml 200 ml Tube Feeding 600 ml 600 ml Other 120 ml Output Urine Total 2100 ml 350 ml Laboratory Tests 05/05/18 06:02: White Blood Count 7.2, Red Blood Count 3.60L, Hemoglobin 10.5L, Hematocrit 31.9L , Mean Corpuscular Volume 89, Mean Corpuscular Hemoglobin 29.1, Mean Corpuscular Hemoglobin Concent 32.8, Red Cell Distribution Width 14.6, Platelet Count 500H, Mean Platelet Volume 5.4L, Neutrophils (%) (Auto) 55.0, Lymphocytes (%) (Auto) 34.2, Monocytes (%) (Auto) 9.0, Eosinophils (%) (Auto) 1.2, Basophils (%) (Auto) 0.7, Sodium Level 140, Potassium Level 3.4L, Chloride Level 102, Carbon Dioxide Level 29, Anion Gap 9, Blood Urea Nitrogen 11, Creatinine 0.5L, Estimat Glomerular Filtration Rate > 60, Glucose Level 124H, Calcium Level 9.3 Height (Feet): 5 Height (Inches): 6.00 Weight (Pounds): 179 General Appearance: no apparent distress Objective no change Chaz Acosta MD May 05, 2018 14:56
[2018-05-05] MEDS ORDERED: Tubing IV Secondary IV ONE (15:22)
[2018-05-05] MEDS ORDERED: NS 275ml ONE (15:22)
--- NOTE | 2018-05-07 07:50 | Discharge Summary ---
Discharge Summary Discharge Summary _ DATE OF ADMISSION: 04/29/2018 DATE OF DISCHARGE: 05/05/2018 REASON FOR ADMISSION: 48 years old male with past medical history of traumatic brain injury, CVA, paraplegia, chronic respiratory failure, tracheostomy status, hypertension, COPD , dysphagia, G-tube feeding, chronic hepatitis C, [facility], was sent for evaluation due to fever and congestion. Patient was with DNR/DNI status, but full medical treatment was desired. Upon evaluation in emergency department patient was febrile with temperature 102.7 ,tachycardiac with heart rate 158. Laboratory workup revealed leukocytosis WBC 15.2, hemoglobin 11.3, hematocrit 33.7 . Sodium 128 ,otherwise stable renal parameters and electrolytes. Stable LFT. Troponin negative . EKG revealed sinus tachycardia no acute ischemic changes Lactic acid 2.3. Urinalysis with possible UTI . Chest x-ray revealed bilateral lower infiltrates. Patient admitted with diagnoses of sepsis, pneumonia, possible urinary tract infection, chronic respiratory failure , tracheostomy status, hyponatremia, dysphagia G-tube feeding, anemia , hypertension ,traumatic brain injury , chronic hepatitis C CONSULTANTS: pulmonary Dr. Lepe ID specialist Dr. Echeverria bottle filler Dr. Acosta surgery Dr. Nur [facility] COURSE: Patient admitted to [facility]. Patient pancultured and started on IV fluids and empiric antibiotics. ID specialist and type casting machine operator closely followed. Blood culture 1/4 revealed Staph capitis. Urine culture revealed Pseudomonas aeruginosa . Sputum culture revealed MRSA and Pseudomonas aeruginosa . Stool for C. difficile toxin was negative. Repeated blood culture still revealed 1/4 Staphylococcus capitis. Final blood culture from 05/04 negative. Patient was on antibiotics as per ID recommendations. Blood culture were contaminant as per ID specialist. Patient to complete antibiotic course fro pneumonia and UTI at the facility. Echocardiogram revealed no evidence of vegetation and showed normal left ventricular chamber size ,systolic function and wall motion to the extent visualized. Butter Fat Tester closely followed. Tracheostomy care provided. Pulmonary toilet provided meticulously. ABG was stable on current FiO2. Patient was followed up with the chest x-rays. Strict aspiration precautions were maintained. Patient tolerated G-tube feeding. DVT /GI prophylaxis provided. Pediatric Acute Care Unit Nurse followed for initially low sodium of 128. Urine studies done. Patient undergone 3% saline infusion along with IV Lasix. Sodium was closely monitored. Prior to discharge sodium 140. Other electrolytes and renal parameters were closely monitored. Electrolytes corrected as needed. Nephrotoxins were avoided. According to bottle filler, hyponatremia was likely due to SIADH. Hemoglobin and hematocrit were closely monitored with goal to keep hemoglobin above 7. Anemia workup was consistent with anemia of chronic disease. Hemoglobin and hematocrit remained at the baseline. Lipid panel was stable. Blood rpessure was managed with beta saad and remained stable. Supportive care provided. Bowel regimen instituted. Surgeon followed. Patient presented with multiply deep tissue injury: bilateral heel deep tissue injury, left distal great toe deep tissue injury with likely prior debridement currently was with dry gangrene at the tip, right distal great toe deep tissue injury with dry gangrene at the lateral edge, resolved sacral wound with scar tissue. All ulcers were present on admission , and wound care provided as per surgery recommendation. No acute surgical intervention was necessary. Decubitus ulcer unlikely was the etiology of sepsis Seizure precaution maintained. Depakote and Keppra continued. No evidence of seizure activity while in the hospital. As patient clinically improved, leukocytosis and fever resolved. Sodium stabilized. 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 Follow up with medical doctor at the facility. I have been assigned to dictate discharge summary for this account. I was not involved in the patient's management. Neris Rose NP May 07, 2018 07:50
== END 2018-05-05 15:23 | DRG 720 ==
LOC: EDBD 20:52 → EMR 21:35 → EDBEDREQ 22:26 → EDBEDREQSVC 22:26 → EDBEDREQTM 22:26 → 2W 22:30 → EDBEDREQ 23:17
DX: A41.9 Sepsis, unspecified organism (principal); G82.50 Quadriplegia, unspecified; J15.212 Pneumonia due to Methicillin resistant Staphylococcus aureus; J15.1 Pneumonia due to Pseudomonas; G93.1 Anoxic brain damage, not elsewhere classified; E22.2 Syndrome of inappropriate secretion of antidiuretic hormone; I96 Gangrene, not elsewhere classified; J96.10 Chronic respiratory failure, unspecified whether with hypoxia or hypercapnia; Y95 Nosocomial condition; N39.0 Urinary tract infection, site not specified; D63.8 Anemia in other chronic diseases classified elsewhere; Z87.820 Personal history of traumatic brain injury; R13.10 Dysphagia, unspecified; Z43.1 Encounter for attention to gastrostomy; Z43.0 Encounter for attention to tracheostomy; G40.909 Epilepsy, unspecified, not intractable, without status epilepticus; B18.2 Chronic viral hepatitis C; Z66 Do not resuscitate; L89.890 Pressure ulcer of other site, unstageable; L89.620 Pressure ulcer of left heel, unstageable; L89.610 Pressure ulcer of right heel, unstageable
CPT/HCPCS: 36415; 36600; 71045; 80048; 80053; 80061; 80202; 81003; 82248; 82550; 82607; 82728; 82746; 82803; 82977; 83540; 83550; 83605; 83735; 83880; 83930; 83935; 84100; 84300; 84443; 84484; 84550; 85025; 86140; 87040; 87070; 87081; 87086; 87181; 87205; 87324; 93005; 93306; 94640; 94664; 94760; 96361; 96365; 96367; 96368; 99291; J7620; J8499

== ENCOUNTER → 2018-12-13 | Emergency (ER) | payer MEDICAID, OTHER ==
[~2018-12-13] VITALS: Ht 172.7 cm; Wt 70.3 kg
[~2018-12-13] MED LIST changes: +ALBUTEROL2.5 MG/3 M INH; +COLACE100 MG/10 GT; +COREG6.25 MG ORAL; +FERROUS SULFAT325 MG ORAL; +KEPPRA500 M4 ORAL; +MILK OF MA400 MG/51 GT; +MULTI-DELYN237 ML GT; +PROPRANOLOL HCL10 MG GT; +Piperacillin/Tazobactam 3.375 GM in NS 110 ML IVPB ONE; +TYLENOL325 MG GT; +UTI-STAT L3875 MG/31 GT; +VITAMIN C500 M1 GT; +Vancomycin 1 GM in NS 275 ML IVPB ONE; +ZINC SULFATE220 M1 GT
[2018-12-13 13:10] VITALS: BP 85/57
[2018-12-13 13:43] LABS: BASOPHILS % (AUTO) 0.5 % (0.0-2.0); EOSINOPHILS % (AUTO) 0.6 % (0.0-3.0); HEMATOCRIT 40.6 % (42.0-52.0); HEMOGLOBIN 13.7 G/DL (14.2-18.0); MEAN CORPUSCULAR VOLUME 90 FL (80-99); MONOCYTES % (AUTO) 5.5 % (1.0-10.0); NEUTROPHILS % (AUTO) 82.4 % (45.0-75.0); PLATELET COUNT 373 K/UL (150-450); RED BLOOD COUNT 4.51 M/UL (4.70-6.10); WHITE BLOOD COUNT 16.6 K/UL (4.8-10.8)
[2018-12-13 13:56] LABS: ANION GAP 5 mmol/L (5-15); BLOOD UREA NITROGEN 25 mg/dL (7-18); CARBON DIOXIDE 30 MMOL/L (21-32); CHLORIDE 96 MMOL/L (98-107); CREATININE 0.8 MG/DL (0.55-1.30); SODIUM 131 MMOL/L (136-145)
[2018-12-13 13:57] VITALS: BP 97/45
[2018-12-13 14:07] LABS: APPEARANCE,URINE CLEAR; BILIRUBIN, URINE NEGATIVE (NEGATIVE); GLUCOSE, URINE (UA) NEGATIVE (NEGATIVE); KETONES,URINE 1+ (NEGATIVE); LEUKOCYTE ESTERASE ,URINE 1+ (NEGATIVE); NITRITE,URINE NEGATIVE (NEGATIVE); PH,URINE 7 (4.5-8.0); PROTEIN,URINE 2+ (NEGATIVE); UROBILINOGEN,URINE 8 MG/DL (0.0-1.0)
[2018-12-13 14:07] LABS: ALANINE AMINOTRANSFERASE 25 U/L (12-78); ALBUMIN 2.8 G/DL (3.4-5.0); ALBUMIN/GLOBULIN RATIO 0.7 (1.0-2.7); ALKALINE PHOSPHATASE 150 U/L (46-116); ASPARTATE AMINO TRANSFERASE 33 U/L (15-37); BILIRUBIN,TOTAL 0.7 MG/DL (0.2-1.0)
--- NOTE | 2018-12-13 14:13 | Emergency Room Report ---
History of Present Illness General Chief Complaint: Skin Rash/Abscess Source: Medical Record (Eduardo Villegas MD) Present Illness HPI 50-year-old male presents ED for evaluation. Brought in by EMS from [facility] facility. Sent in for evaluation of right upper extremity swelling and erythema. Also noted to have a rash which is spreading to the right side of chest and right upper extremity. Patient has history of anoxic brain injury, trach on trach collar. Is nonverbal at baseline. Unable to provide any additional history at this time. Nursing staff states that they noticed the rash today. No signs of distress. No other aggravating relieving factors. No other associated symptoms (Eduardo Villegas MD) Allergies: Coded Allergies: No Known Allergies (Unverified , 03/20/18) Patient History Past Medical History: HTN, CVA/TIA, seizures, other - Gtube, trach Pertinent Family History: none Social History: Denies: smoking, alcohol use, drug use Immunizations: UTD Reviewed Nursing Documentation: PMH: Agreed; PSxH: Agreed (Eduardo Villegas MD) Nursing Documentation-PMH Past Medical History: No History, Except For Hx Cardiac Problems: Yes - cardiomegaly, SVT, tachycardia Hx Hypertension: Yes Hx COPD: Yes - chronic respiratory failure, Hx Cancer: No Hx Gastrointestinal Problems: Yes - G-tube Hx Neurological Problems: Yes - anoxic brain damage, cerebrospinal fluid drainage device Hx Cerebrovascular Accident: Yes - CVA w/ Qudriplegia, cerebral infartion Hx Seizures: Yes Hx Epilepsy: Yes Hx Dysphasia: Yes (Eduardo Villegas MD) Review of Systems All Other Systems: limited (Eduardo Villegas MD) Physical Exam Vital Signs Date Time Temp Pulse Resp B/P (MAP) Pulse Ox O2 Delivery O2 Flow Rate FiO2 12/13/18 13:08 100.0 105 20 92/52 (65) 100 Trach Collar 12/13/18 13:10 3.0 Sp02 EP Interpretation: reviewed, normal General Appearance: other - nonverbal Head: atraumatic Eyes: bilateral eye normal inspection, bilateral eye PERRL ENT: hearing grossly normal, normal pharynx, no angioedema, normal voice Neck: tracheotomy Respiratory: chest non-tender, lungs clear, normal breath sounds, speaking full sentences Cardiovascular #1: regular rate, rhythm, no edema Gastrointestinal: normal bowel sounds, non tender, soft, non-distended, no guarding, no rebound, other - Gtube Rectal: deferred Genitourinary: no CVA tenderness Musculoskeletal: swelling - LUE - erythema/induration Neurologic: other - nonverbal Psychiatric: other - nonverbal Skin: rash - diffuse papular rash to RUE and chest. LUE with erythematous base and swelling Lymphatic: normal inspection (Eduardo Villegas MD) Medical Decision Making Diagnostic Impression: Primary Impression: Chronic respiratory failure Additional Impressions: Cellulitis of left upper extremity Rash Scabies infestation ER Course Please see above note. BP better after bolus. Vanco and Zosyn ordered. Discussed with Dr. Knapp. Accepted at [facility]. Rash reviewed. Looks scabetic. Permethrin ordered. Patient stable for transfer. Laboratory Tests Test 12/13/18 13:10 12/13/18 13:43 White Blood Count 16.6 K/UL (4.8-10.8) H Red Blood Count 4.51 M/UL (4.70-6.10) L Hemoglobin 13.7 G/DL (14.2-18.0) L Hematocrit 40.6 % (42.0-52.0) L Mean Corpuscular Volume 90 FL (80-99) Mean Corpuscular Hemoglobin 30.4 PG (27.0-31.0) Mean Corpuscular Hemoglobin Concent 33.7 G/DL (32.0-36.0) Red Cell Distribution Width 12.0 % (11.6-14.8) Platelet Count 373 K/UL (150-450) Mean Platelet Volume 5.8 FL (6.5-10.1) L Neutrophils (%) (Auto) 82.4 % (45.0-75.0) H Lymphocytes (%) (Auto) 11.0 % (20.0-45.0) L Monocytes (%) (Auto) 5.5 % (1.0-10.0) Eosinophils (%) (Auto) 0.6 % (0.0-3.0) Basophils (%) (Auto) 0.5 % (0.0-2.0) Sodium Level 131 MMOL/L (136-145) L Potassium Level 4.0 MMOL/L (3.5-5.1) Chloride Level 96 MMOL/L (98-107) L Carbon Dioxide Level 30 MMOL/L (21-32) Anion Gap 5 mmol/L (5-15) Blood Urea Nitrogen 25 mg/dL (7-18) H Creatinine 0.8 MG/DL (0.55-1.30) Estimate Glomerular Filtration Rate > 60 mL/min (>60) Glucose Level 107 MG/DL (74-106) H Lactic Acid Level 1.40 mmol/L (0.4-2.0) Calcium Level 9.0 MG/DL (8.5-10.1) Total Bilirubin 0.7 MG/DL (0.2-1.0) Aspartate Amino Transferase (AST) 33 U/L (15-37) Alanine Aminotransferase (ALT) 25 U/L (12-78) Alkaline Phosphatase 150 U/L (46-116) H Pro-B-Type Natriuretic Peptide 648 pg/mL (0-125) H Total Protein 7.0 G/DL (6.4-8.2) Albumin 2.8 G/DL (3.4-5.0) L Globulin 4.2 g/dL Albumin/Globulin Ratio 0.7 (1.0-2.7) L Urine Color Yellow Urine Appearance Clear Urine pH 7 (4.5-8.0) Urine Specific Plover 1.005 (1.005-1.035) Urine Protein 2+ (NEGATIVE) H Urine Glucose (UA) Negative (NEGATIVE) Urine Ketones 1+ (NEGATIVE) H Urine Blood Negative (NEGATIVE) Urine Nitrite Negative (NEGATIVE) Urine Bilirubin Negative (NEGATIVE) Urine Urobilinogen 8 MG/DL (0.0-1.0) H Urine Leukocyte Esterase 1+ (NEGATIVE) H Urine RBC 0 /HPF (0 - 0) Urine WBC 0-2 /HPF (0 - 0) Urine Squamous Epithelial Cells None /LPF (NONE/OCC) Urine Bacteria Occasional /HPF (NONE) (Mohsen Sanchez MD) ER Course Microbiology faxed a report to the emergency department that showed gram- positive cocci in clusters in anaerobic blood culture bottle. This result was faxed to [facility]. (Emily Crane. ) EKG Diagnostic Results Rate: normal Rhythm: NSR ST Segments: no acute changes ASA given to the pt in ED: No (Eduardo Villegas MD) Rhythm Strip Diag. Results EP Interpretation: yes Rhythm: NSR, no PVC's, no ectopy (Eduardo Villegas MD) EP Interpretation: yes Rhythm: no PVC's, no ectopy, other - ST (Mohsen Sanchez MD) CT/MRI/US Diagnostic Results CT/MRI/US Diagnostic Results : Imaging Test Ordered: US arm Impression no DVT (Mohsen Sanchez MD) Last Vital Signs Date Time Temp Pulse Resp B/P (MAP) Pulse Ox O2 Delivery O2 Flow Rate FiO2 12/13/18 13:57 100.8 102 24 97/45 100 Nasal Cannula 3.0 (Eduardo Villegas MD) Last Vital Signs Date Time Temp Pulse Resp B/P (MAP) Pulse Ox O2 Delivery O2 Flow Rate FiO2 12/13/18 17:35 100.8 107 27 95/52 100 Trach Collar 3.0 35 Status: improved (Mohsen Sanchez MD) Disposition: XFER SHT-TRM HOSP Condition: Serious Referrals: Mili Farris MD (PCP) Eduardo Villegas MD Dec 13, 2018 14:13 Mohsen Sanchez MD Dec 13, 2018 15:24 Emily Crane DO Dec 14, 2018 12:54
[2018-12-13 14:15] LABS: COLOR,URINE YELLOW
[2018-12-13 16:00] VITALS: BP 104/79
[2018-12-13 17:35] VITALS: BP 95/52
--- NOTE | 2018-12-14 13:20 | Diagnostic Imaging Report ---
Indication: Altered mental status Technique: One view of the chest Comparison: 05/04/2018 Findings: Stable satisfactory position of tracheostomy tube. Right sided ventricular peritoneal shunt tubing is again demonstrated. The heart size is normal. The lungs and pleural spaces are clear. No significant interim change Impression: No acute process. Findings as noted
--- NOTE | 2018-12-14 14:10 | Diagnostic Imaging Report ---
Indication: Left arm pain Technique: Grayscale and duplex images of the left upper extremity veins Comparison: none Findings: Exam is limited as the patient is contracted The cephalic vein could not be visualized. The visualized segments of the left basilic, brachial, axillary, and intervertebral jugular veins demonstrate no evidence of intraluminal thrombus. Normal phasic Doppler waveforms, normal compressibility. Impression: Somewhat limited exam, as described. No evidence of left upper extremity venous thrombosis in the visualized venous segments Note inability to visualize the left cephalic vein This agrees with the preliminary interpretation provided overnight by [facility].
== END | disposition home or self-care (01) ==
LOC: EDUNIT# 13:05 → EDBD 13:06 → EDBEDREQ 13:23 → EMR 13:36
DX: L03.114 Cellulitis of left upper limb (principal); R21 Rash and other nonspecific skin eruption; J96.10 Chronic respiratory failure, unspecified whether with hypoxia or hypercapnia; B86 Scabies; I10 Essential (primary) hypertension; Z86.73 Personal history of transient ischemic attack (TIA), and cerebral infarction without residual deficits; G40.909 Epilepsy, unspecified, not intractable, without status epilepticus; Z93.1 Gastrostomy status
CPT/HCPCS: 36415; 71045; 80053; 81003; 83605; 83880; 85025; 87040; 87081; 87181; 93005; 93971; 94664; 96361; 96365; 96368; 99285; J2543; J3370; J7050